=== PATIENT | female | born 1950 | race Caucasian/White ===

== ENCOUNTER 2016-12-13 22:15 | Emergency (ER) | payer MEDICARE, BC ==
[2016-12-13 22:26] VITALS: BP 158/81
[2016-12-13] MEDS ORDERED: Sodium Chloride 0.9% 10 ML Syringe FLUSH PRN (22:31)
[2016-12-13] MEDS ORDERED: Famotidine 20 MG/2 ML SDV IVPUSH ONE (22:37)
[2016-12-13] MEDS ORDERED: HYDROmorphone 0.5 MG/0.5 ML Syringe IVPUSH ONE ×2 (22:37→23:37)
[2016-12-13] MEDS ORDERED: Ondansetron 4 MG/2 ML SDV IVPUSH ONE (22:37)
[2016-12-13] MEDS ORDERED: LORazepam 2 MG/ML MDV IVPUSH ONE ×2 (22:39→23:37)
--- NOTE | 2016-12-13 22:43 | EDM.PDOC ---
ED HPI GENERAL MEDICAL PROBLEM - General Chief Complaint: Abdominal Pain Stated Complaint: abdominal pain Time Seen by Provider: 12/13/16 22:31 Source of Information: Reports: Patient, RN Notes Reviewed - History of Present Illness INITIAL COMMENTS - FREE TEXT/NARRATIVE: 66 show female comes in with severe abdominal pain, nausea, diarrhea. This all started about 5 hours ago. She had eaten lunch earlier today, felt fine at that time. Do not eat supper this evening. The pain came first followed by about 3 episodes of watery diarrhea. She's had severe generalized abdominal cramping, also having some leg and back "spasms". Her mouth feels very dry. She has no chest pain or difficulty breathing. She and her did eat pizza about 24 hours ago. No other family members are ill at this time. Abdomen Pain Score (Numeric/FACES): 8 - Related Data Allergies Allergy/AdvReac Type Severity Reaction Status Date / Time acetaminophen [From Percocet] AdvReac Hallucinati Verified 12/13/16 22:27 ons codeine AdvReac Disorientat Verified 12/13/16 22:27 ion oxycodone HCl [From Percocet] AdvReac Hallucinati Verified 12/13/16 22:27 ons wheat,eggs, dairy Allergy Related to Uncoded 12/13/16 22:27 sinuses, not GI tract. Pt. consumes these foods. Home Meds: Home Meds Atenolol 50 mg PO QPM 11/07/13 [History] Calcium Carb/Vitamin D3/Vit K1 [Viactiv Soft Chew] 1 tab PO DAILY 11/07/13 [ History] Calcium Polycarbophil [Fibercon] 625 mg PO DAILY 11/07/13 [History] Ezetimibe [Zetia] 10 mg PO DAILY 11/07/13 [History] Fluticasone Propionate [Flonase] 2 sprays NASBOTH DAILY 11/07/13 [History] Multivitamin [Daily Multiple Vitamin] 1 tab PO DAILY 11/07/13 [History] NIFEdipine [Procardia XL] 30 mg PO DAILY 11/07/13 [History] Omeprazole [priLOSEC OTC] 20 mg PO DAILY 11/07/13 [History] Oxybutynin Chloride [Ditropan Xl] 10 mg PO DAILY 11/07/13 [History] Simvastatin [Zocor] 20 mg PO BEDTIME 11/07/13 [History] busPIRone [Buspar] 10 mg PO BID 11/07/13 [History] Aspirin [Halfprin] 81 mg PO DAILY 12/08/14 [History] Benzonatate [Tessalon Perles] 200 mg PO TID PRN 12/08/14 [History] Estrogens, Conjugated [Premarin Vaginal Crm] 0.5 gm VAG ASDIRECTED 12/08/14 [ History] Iron Polysaccharide Complex [Poly-Iron] 1 tab PO DAILY 12/08/14 [History] [place]-3/DHA/Epa/Fish Oil [Fish Oil Dr 500 mg Softgel] 1,000 mg PO DAILY [History] guaiFENesin [Mucinex] 1,200 mg PO BID PRN 12/08/14 [History] Albuterol [Proventil HFA] 2 puff INH Q46H PRN 03/05/15 [History] Fluticasone/Salmeterol [Advair 100-50] 1 puff INH BID 03/05/15 [History] ALPRAZolam [Xanax] 0.25 mg PO Q8H PRN #10 tablet 03/11/15 [Rx] Levofloxacin [Levaquin] 750 mg PO Q48H #5 tab 03/11/15 [Rx] Ciprofloxacin HCl [Cipro] 500 mg PO Q12HR #6 tablet 12/14/16 [Rx] Past Medical History Cardiovascular History: Reports: Heart Murmur, High Cholesterol, Hypertension Respiratory History: Reports: Bronchitis, Recurrent, COPD Gastrointestinal History: Reports: GERD, Other (See Below) Other Gastrointestinal History: hx of c diff Genitourinary History: Reports: Renal Calculus, Urinary Incontinence, UTI, Recurrent Other OB/BYN History: tubal ligation 1986; hysterectomy 1990 Musculoskeletal History: Reports: Back Pain, Chronic Psychiatric History: Reports: Anxiety Oncologic (Cancer) History: Reports: Malignant Melanoma Dermatologic History: Reports: Melanoma Other Dermatologic History: melanoma 10 years ago. surgery to melonoma to her back; no further treatment - Infectious Disease History Infectious Disease History: Reports: C-Difficile - Past Surgical History HEENT Surgical History: Reports: Naso-Sinus Surgery, Tonsillectomy GI Surgical History: Reports: Appendectomy, Cholecystectomy, Other (See Below) Musculoskeletal Surgical History: Reports: Carpal Tunnel Social & Family History - Family History Cardiac: Reports: Heart Failure Musculoskeletal: Reports: Arthritis, Osteoarthritis Endocrine/Metabolic: Reports: Diabetes, Type I Oncologic: Reports: Cervix, Pancreatic - Tobacco Use Smoking Status *Q: Never Smoker Second Hand Smoke Exposure: No - Caffeine Use Caffeine Use: Reports: Coffee - Alcohol Use Days Per Week of Alcohol Use: 0 - Recreational Drug Use Recreational Drug Use: No - Living Situation & Occupation Living situation: Reports: , with Spouse Occupation: Employed ED ROS GENERAL - Review of Systems Review Of Systems: See Below Constitutional: Denies: Fever, Chills, Diaphoresis HEENT: Reports: Other. Denies: Throat Pain Respiratory: Denies: Shortness of Breath, Pleuritic Chest Pain (Also Strine) Cardiovascular: Denies: Chest Pain GI/Abdominal: Reports: Abdominal Pain, Diarrhea (Generalized), Nausea ( watery) . Denies: Hematochezia, Melena, Vomiting Musculoskeletal: Reports: Other (Back and leg cramps) Skin: Reports: No Symptoms Neurological: Reports: No Symptoms ED EXAM, GI/ABD - Physical Exam Exam: See Below General Appearance: Alert, Anxious, Moderate Distress Eyes: Bilateral: Normal Appearance Throat/Mouth: Other Head: No: Facial Swelling (All mucosa very dry) Neck: Supple, Full Range of Motion Respiratory/Chest: No Respiratory Distress, Lungs Clear, Normal Breath Sounds Cardiovascular: Regular Rate, Rhythm GI/Abdominal Exam: Distended (Severe tenderness entire lower abdomen), Tender Back Exam: No: CVA Tenderness (L), CVA Tenderness (R) Extremities: Normal Inspection. No: Pedal Edema, Leg Pain Neurological: Alert, Oriented, No Motor/Sensory Deficits Skin Exam: Warm, Dry, Normal Color Course - Vital Signs Last Recorded V/S: Last Vital Signs Temp 96.5 F 12/13/16 22:22 Pulse 67 12/13/16 22:22 Resp 20 12/13/16 22:22 BP 158/81 H 12/13/16 22:22 Pulse Ox 97 12/13/16 22:22 - Orders/Labs/Meds Orders: Active Orders 24 hr Category Date Time Status Peripheral IV Care [RC] . DIRECTED Care 12/13/16 22:32 Active Abdomen 2V AP Flat Upright [CR] Stat Exams 12/14/16 00:06 Taken Peripheral IV Insertion Adult [OM.PC] Stat Oth 12/13/16 22:32 Ordered Labs: Laboratory Tests 12/13/16 12/13/16 12/13/16 Range/Units 22:25 22:25 22:25 WBC 15.72 H (3.98-10.04) K/mm3 RBC 5.37 H (3.98-5.22) M/mm3 Hgb 16.6 H (11.2-15.7) gm/L Hct 47.9 H (34.1-44.9) % MCV 89.2 (79.4-94.8) fl MCH 30.9 (25.6-32.2) pg MCHC 34.7 (32.2-35.5) g/dl RDW Std Deviation 43.9 (36.4-46.3) fL Plt Count 272 (182-369) K/mm3 MPV 8.9 L (9.4-12.3) fl Neut % (Auto) 73.7 H (34.0-71.1) % Lymph % (Auto) 16.5 L (19.3-51.7) % [place] % (Auto) 8.7 (4.7-12.5) % Eos % (Auto) 0.8 (0.7-5.8) Baso % (Auto) 0.2 (0.1-1.2) % Neut # (Auto) 11.59 H (1.56-6.13) K/mm3 Lymph # (Auto) 2.59 (1.18-3.74) K/mm3 [place] # (Auto) 1.36 H (0.24-0.36) K/mm3 Eos # (Auto) 0.13 (0.04-0.36) K/mm3 Baso # (Auto) 0.03 (0.01-0.08) K/mm3 Sodium 140 (136-145) mEq/L Potassium 4.2 (3.5-5.1) mEq/L Chloride 102 (98-107) mEq/L Carbon Dioxide 21 (21-32) mEq/L Anion Gap 21.2 H (5-15) BUN 27 H (7-18) mg/dL Creatinine 1.2 H (0.55-1.02) mg/dL Est Cr Clr Drug Dosing 34.80 mL/min Estimated GFR (MDRD) 45 (>60) mL/min BUN/Creatinine Ratio 22.5 H (14-18) Glucose 131 H (80-115) mg/dL Calcium 10.4 H (8.5-10.1) mg/dL Total Bilirubin 1.0 (0.2-1.0) mg/dL AST 26 (15-37) U/L ALT 36 (14-59) U/L Alkaline Phosphatase 90 (46-116) U/L C-Reactive Protein 0.4 (<1.0) mg/dL Total Protein 8.2 (6.4-8.2) g/dl Albumin 4.5 (3.4-5.0) g/dl Globulin 3.7 gm/dL Albumin/Globulin Ratio 1.2 (1-2) Lipase 135 (73-393) U/L Urine Color (Yellow) Urine Appearance (Clear) Urine pH (5.0-8.0) Ur Specific [address] (1.005-1.030) Urine Protein (Negative) Urine Glucose (UA) (Negative) Urine Ketones (Negative) Urine Occult Blood (Negative) Urine Nitrite (Negative) Urine Bilirubin (Negative) Urine Urobilinogen (0.2-1.0) Ur Leukocyte Esterase (Negative) Urine RBC (0-5) /hpf Urine WBC (0-5) /hpf Ur Epithelial Cells (0-5) /hpf Urine Bacteria (FEW) /hpf Urine Mucus (FEW) /hpf // Range/Units 22:52 WBC (3.98-10.04) K/mm3 RBC (3.98-5.22) M/mm3 Hgb (11.2-15.7) gm/L Hct (34.1-44.9) % MCV (79.4-94.8) fl MCH (25.6-32.2) pg MCHC (32.2-35.5) g/dl RDW Std Deviation (36.4-46.3) fL Plt Count (182-369) K/mm3 MPV (9.4-12.3) fl Neut % (Auto) (34.0-71.1) % Lymph % (Auto) (19.3-51.7) % [place] % (Auto) (4.7-12.5) % Eos % (Auto) (0.7-5.8) Baso % (Auto) (0.1-1.2) % Neut # (Auto) (1.56-6.13) K/mm3 Lymph # (Auto) (1.18-3.74) K/mm3 [place] # (Auto) (0.24-0.36) K/mm3 Eos # (Auto) (0.04-0.36) K/mm3 Baso # (Auto) (0.01-0.08) K/mm3 Sodium (136-145) mEq/L Potassium (3.5-5.1) mEq/L Chloride (98-107) mEq/L Carbon Dioxide (21-32) mEq/L Anion Gap (5-15) BUN (7-18) mg/dL Creatinine (0.55-1.02) mg/dL Est Cr Clr Drug Dosing mL/min Estimated GFR (MDRD) (>60) mL/min BUN/Creatinine Ratio (14-18) Glucose (80-115) mg/dL Calcium (8.5-10.1) mg/dL Total Bilirubin (0.2-1.0) mg/dL AST (15-37) U/L ALT (14-59) U/L Alkaline Phosphatase (46-116) U/L C-Reactive Protein (<1.0) mg/dL Total Protein (6.4-8.2) g/dl Albumin (3.4-5.0) g/dl Globulin gm/dL Albumin/Globulin Ratio (1-2) Lipase (73-393) U/L Urine Color Yellow (Yellow) Urine Appearance Clear (Clear) Urine pH 6.0 (5.0-8.0) Ur Specific [address] 1.025 (1.005-1.030) Urine Protein Negative (Negative) Urine Glucose (UA) Negative (Negative) Urine Ketones Negative (Negative) Urine Occult Blood Negative (Negative) Urine Nitrite Negative (Negative) Urine Bilirubin Negative (Negative) Urine Urobilinogen 0.2 (0.2-1.0) Ur Leukocyte Esterase Negative (Negative) Urine RBC 0-5 (0-5) /hpf Urine WBC 0-5 (0-5) /hpf Ur Epithelial Cells 0-5 (0-5) /hpf Urine Bacteria Few (FEW) /hpf Urine Mucus Many H (FEW) /hpf Meds: Medications Discontinued Medications Generic Name Dose Route Start Last Admin Trade Name Freq PRN Reason Stop Dose Admin Dicyclomine HCl 10 mg 12/13/16 23:39 12/13/16 23:48 Bentyl PO 12/13/16 23:40 10 mg ONETIME ONE Administration Famotidine 20 mg 12/13/16 22:37 12/13/16 23:08 Pepcid IVPUSH 12/13/16 22:38 20 mg ONETIME ONE Administration Hydromorphone HCl 0.25 mg 12/13/16 22:37 12/13/16 23:03 Dilaudid IVPUSH 12/13/16 22:38 0.25 mg ONETIME ONE Administration Hydromorphone HCl 0.5 mg 12/13/16 23:37 12/13/16 23:43 Dilaudid IVPUSH 12/13/16 23:38 0.5 mg ONETIME ONE Administration Sodium Chloride 1,000 mls @ 999 mls/hr 12/13/16 22:45 12/13/16 23:01 Normal Saline IV 999 mls/hr ONETIME DIANE Administration Sodium Chloride 1,000 mls @ 999 mls/hr 12/14/16 02:00 12/14/16 01:54 Normal Saline IV 999 mls/hr ONETIME DIANE Administration Lorazepam 0.25 mg 12/13/16 22:39 12/13/16 23:05 Ativan IVPUSH 12/13/16 22:40 0.25 mg ONETIME ONE Administration Lorazepam 0.25 mg 12/13/16 23:37 12/13/16 23:41 Ativan IVPUSH 12/13/16 23:38 0.25 mg ONETIME ONE Administration Ondansetron HCl 4 mg 12/13/16 22:37 12/13/16 23:02 Zofran IVPUSH 12/13/16 22:38 4 mg ONETIME ONE Administration Sodium Chloride 10 ml 12/13/16 22:31 12/13/16 23:05 Saline Flush FLUSH 10 ml ASDIRECTED PRN Administration Keep Vein Open - Re-Assessments/Exams Free Text/Narrative Re-Assessment/Exam: 12/14/16 03:31 initial labs showed that she was quite dehydrated. She has history of medication sensitivity so started out with very low dose Dilaudid and Ativan 0.25 mg each 2 over a period of time. After the second dose of the Dilaudid and Ativan her discomfort, anxiety, and cramping did settle down. We did give a total of 2 L IV fluid. She is feeling much improved at time of discharge. Discharge instructions as documented. Departure - Departure Time of Disposition: 03:03 Disposition: Home, Self-Care 01 Condition: Fair Clinical Impression: Abdominal pain Qualifiers: Abdominal location: generalized Qualified Code(s): R10.84 - Generalized abdominal pain Diarrhea Qualifiers: Diarrhea type: presumed infectious Qualified Code(s): A09 - Infectious gastroenteritis and colitis, unspecified - Discharge Information Prescriptions: Ciprofloxacin HCl [Cipro] 500 mg PO Q12HR #6 tablet Instructions: Diarrhea, Adult, Abdominal Pain, Adult Referrals: Karla Rabago MD [Primary Care Provider] - Forms: ED Department Discharge Additional Instructions: Clear liquids until this afternoon or evening, then very careful bland diet as tolerated, Begin Cipro antibiotic this morning and take twice daily for 3 days, begin probiotic this morning and take that twice daily for 3-5 days and thereafter as needed, Follow up clinic if not much better within 2-3 days as expected, return to ED if symptoms worsening in any way - My Orders Last 24 Hours: My Active Orders 12/13/16 22:32 Peripheral IV Care [RC] . DIRECTED Peripheral IV Insertion Adult [OM.PC] Stat 12/14/16 00:06 Abdomen 2V AP Flat Upright [CR] Stat - Assessment/Plan Last 24 Hours: My Active Orders 12/13/16 22:32 Peripheral IV Care [RC] . DIRECTED Peripheral IV Insertion Adult [OM.PC] Stat 12/14/16 00:06 Abdomen 2V AP Flat Upright [CR] Stat
[2016-12-13] MEDS ORDERED: Sodium Chloride 0.9% 1,000 ML IV SCH (22:45)
[2016-12-13] MEDS ORDERED: Dicyclomine 10 MG Cap PO ONE (23:39)
[2016-12-14] MEDS ORDERED: Sodium Chloride 0.9% 1,000 ML IV SCH (02:00)
--- NOTE | 2016-12-14 06:42 | CR ---
Abdomen: Supine and upright views of the abdomen were obtained. Comparison: Prior abdominal x-ray of 12/08/14. Scoliosis and degenerative change are seen within the spine. Several loops of gas-filled bowel loops which are mildly prominent is seen within the midabdomen. Other bowel loops appear to contain mostly fluid. Difficult to exclude developing small bowel obstruction. No free air is seen. No abnormal calcifications or discrete soft tissue abnormality is seen. Impression: 1. Fluid-filled loops of bowel as well as several prominent air-filled loops of bowel within the midabdomen. Difficult to exclude developing small bowel obstruction. 2. Other incidental findings. Diagnostic code #3
== END 2016-12-14 03:21 | disposition home or self-care (01) ==
LOC: JD.ED 22:15
DX: A09 Infectious gastroenteritis and colitis, unspecified (principal); Z88.6 Allergy status to analgesic agent; Z88.5 Allergy status to narcotic agent; Z91.018 Allergy to other foods; Z91.012 Allergy to eggs; Z91.011 Allergy to milk products; Z79.899 Other long term (current) drug therapy; E78.00 Pure hypercholesterolemia, unspecified; I10 Essential (primary) hypertension; J44.9 Chronic obstructive pulmonary disease, unspecified; Z87.440 Personal history of urinary (tract) infections; Z79.82 Long term (current) use of aspirin
CPT/HCPCS: 36415; 74020; 80053; 81001; 83690; 85025; 86140; 96361; 96374; 96375; 96376; 99284; A9270; J1170; J2060; J2405; J7040; J7050

== ENCOUNTER 2017-06-15 07:06 | Day surgery (SDC) | payer MEDICARE, BC ==
[~2017-06-15 07:06] MED LIST: Cefuroxime 10 MG/ML SYRINGE EYELF SCH; Lidocaine 1% PF 2 ML SDV INJECT SCH; Pilocarpine 4% Ophth Soln 15 ML Bot EYELF SCH
[2017-06-15] MEDS: Polymyxin B/Trimethoprim 10 ML Bottle EYELF SCH ×3 (07:21→09:04)
[2017-06-15] MEDS: Brimonidine 0.2% Ophth Soln 5 ML Bottle EYELF SCH ×3 (07:26→09:04)
[2017-06-15] MEDS: Phenylephrine 2.5% Ophth Soln 2 ML Bot EYELF SCH ×5 (07:31→08:46)
--- NOTE | 2017-06-15 07:46 | PCM.PREANE ---
Preanesthetic Assessment - Anesthesia/Transfusion/Family Hx Anesthesia History: Prior Anesthesia Without Reaction Family History of Anesthesia Reaction: No Transfusion History: No Prior Transfusion(s) - Review of Systems General: No Symptoms Pulmonary: No Symptoms, Other (Pulmonary hypertension.) Cardiovascular: No Symptoms, Other (Right sided heart failure. Follows with cardiology (Dr. Olsen). Was told at her last apointment it was improving. Loud murmur noted. ) Gastrointestinal: No Symptoms Neurological: No Symptoms Other: Reports: None - Physical Assessment NPO Status Date: 06/14/17 NPO Status Time: 22:15 O2 Sat by Pulse Oximetry: 96 Respiratory Rate: 16 Vital Signs: Last Vital Signs Temp 36.1 C 06/15/17 07:10 Pulse 58 L 06/15/17 07:10 Resp 16 06/15/17 07:10 BP 113/67 06/15/17 07:10 Pulse Ox 96 06/15/17 07:10 Height: 1.55 m Weight: 65.771 kg ASA Class: 3 Mental Status: Alert & Oriented x3 Airway Class: Mallampati = 1 Dentition: Reports: Normal Dentition Thyro-Mental Finger Breadths: 3 Mouth Opening Finger Breadths: 3 ROM/Head Extension: Full Lungs: Clear to Auscultation, Normal Respiratory Effort Cardiovascular: Regular Rate, Regular Rhythm, Murmurs - Allergies Allergies/Adverse Reactions: Allergies Allergy/AdvReac Type Severity Reaction Status Date / Time acetaminophen [From Percocet] AdvReac Hallucinati Verified 06/14/17 14:57 ons codeine AdvReac Disorientat Verified 06/14/17 14:57 ion oxycodone HCl [From Percocet] AdvReac Hallucinati Verified 06/14/17 14:57 ons wheat,eggs, dairy Allergy Related to Uncoded 06/14/17 14:57 sinuses, not GI tract. Pt. consumes these foods. - Anesthesia Plan Beta Maria Del Rosario: Atenolol Med Last Dose Date: 06/15/17 Med Last Dose Time: 05:15 - Acknowledgements Anesthesia Type Planned: MAC Pt an Appropriate Candidate for the Planned Anesthesia: Yes Alternatives and Risks of Anesthesia Discussed w Pt/Guardian: Yes Pt/Guardian Understands and Agrees with Anesthesia Plan: Yes PreAnesthesia Questionnaire Cardiovascular History: Reports: Heart Murmur, High Cholesterol, Hypertension Respiratory History: Reports: Bronchitis, Recurrent, COPD Gastrointestinal History: Reports: GERD, Other (See Below) Other Gastrointestinal History: hx of c diff Genitourinary History: Reports: Renal Calculus, Urinary Incontinence, UTI, Recurrent Other OB/BYN History: tubal ligation 1986; hysterectomy 1990 Musculoskeletal History: Reports: Back Pain, Chronic Psychiatric History: Reports: Anxiety Oncologic (Cancer) History: Reports: Malignant Melanoma Dermatologic History: Reports: Melanoma Other Dermatologic History: melanoma 10 years ago. surgery to melonoma to her back; no further treatment - Infectious Disease History Infectious Disease History: Reports: C-Difficile - Past Surgical History HEENT Surgical History: Reports: Naso-Sinus Surgery, Tonsillectomy GI Surgical History: Reports: Appendectomy, Cholecystectomy, Other (See Below) Musculoskeletal Surgical History: Reports: Carpal Tunnel - SUBSTANCE USE Smoking Status *Q: Never Smoker Second Hand Smoke Exposure: No Days Per Week of Alcohol Use: 0 Recreational Drug Use History: No - HOME MEDS Home Medications: Home Meds Atenolol 50 mg PO QPM 11/07/13 [History] Calcium Carb/Vitamin D3/Vit K1 [Viactiv Soft Chew] 1 tab PO DAILY 11/07/13 [ History] Calcium Polycarbophil [Fibercon] 625 mg PO DAILY 11/07/13 [History] Ezetimibe [Zetia] 10 mg PO DAILY 11/07/13 [History] Fluticasone Propionate [Flonase] 2 sprays NASBOTH DAILY 11/07/13 [History] Multivitamin [Daily Multiple Vitamin] 1 tab PO DAILY 11/07/13 [History] NIFEdipine [Procardia XL] 30 mg PO DAILY 11/07/13 [History] Omeprazole [priLOSEC OTC] 20 mg PO DAILY 11/07/13 [History] Oxybutynin Chloride [Ditropan Xl] 10 mg PO DAILY 11/07/13 [History] Simvastatin [Zocor] 20 mg PO BEDTIME 11/07/13 [History] busPIRone [Buspar] 10 mg PO BID 11/07/13 [History] Aspirin [Halfprin] 81 mg PO DAILY 12/08/14 [History] Estrogens, Conjugated [Premarin Vaginal Crm] 0.5 gm VAG ASDIRECTED 12/08/14 [ History] [place]-3/DHA/Epa/Fish Oil [Fish Oil Dr 500 mg Softgel] 1,000 mg PO DAILY [History] guaiFENesin [Mucinex] 1,200 mg PO BID PRN 12/08/14 [History] Albuterol [Proventil HFA] 2 puff INH Q46H PRN 03/05/15 [History] ALPRAZolam [Xanax] 0.25 mg PO Q8H PRN #10 tablet 03/11/15 [Rx] Acetaminophen [Tylenol] 650 mg PO Q6H PRN 06/14/17 [History] Atenolol 25 mg PO QPM 06/14/17 [History] Vit A/Vit C/Vit E/Zinc/Copper [Preservision] 1 tab PO DAILY 06/14/17 [History] - CURRENT (IN HOUSE) MEDS Current Meds: Current Medications Brimonidine Tartrate (Alphagan 0.2% Ophth Soln) 0 ml EYELF ASDIRECTED DIANE Stop: 06/15/17 18:00 Last Admin: 06/15/17 07:26 Dose: 1 drop Cefuroxime Sodium (Zinacef) 0 mg EYELF ASDIRECTED DIANE Stop: 06/15/17 18:00 Lidocaine HCl (Xylocaine-Mpf 1%) 10 ml INJECT ASDIRECTED DIANE Stop: 06/15/17 18:00 Phenylephrine HCl (Chris-Synephrine 2.5% Ophth Soln) 0 ml EYELF ASDIRECTED DIANE Stop: 06/15/17 18:00 Last Admin: 06/15/17 07:31 Dose: 1 drop Pilocarpine HCl (Pilocar 4% Ophth Soln) 0 ml EYELF ASDIRECTED DIANE Stop: 06/15/17 18:00 Polymyxin/Trimethoprim Sulfate (Polytrim Ophth Soln) 0 ml EYELF ASDIRECTED DIANE Stop: 06/15/17 18:00 Last Admin: 06/15/17 07:21 Dose: 1 drop Tetracaine HCl (Tetracaine 0.5% Steri-Unit [place]) 0 ml EYELF ASDIRECTED DIANE Stop: 06/15/17 18:00 Tropicamide (Mydriacyl 1% Ophth Soln) 0 ml EYELF ASDIRECTED DIANE Stop: 06/15/17 18:00 Last Admin: 06/15/17 07:36 Dose: 1 drop
[2017-06-15] MEDS: Tetracaine HCl/PF 0.5% 4 ML Bottle EYELF SCH ×2 (08:31→08:53)
--- NOTE | 2017-06-15 09:07 | PCM48HPAN ---
Post Anesthesia Note - EVALUATION WITHIN 48HRS OF ANESTHETIC Vital Signs in Normal Range: Yes Patient Participated in Evaluation: Yes Respiratory Function Stable: Yes Airway Patent: Yes Cardiovascular Function Stable: Yes Hydration Status Stable: Yes Pain Control Satisfactory: Yes Nausea and Vomiting Control Satisfactory: Yes Mental Status Recovered: Yes Pulse Rate: 63 SaO2: 95 Resp Rate: 16 Blood Pressure: 116/66
[2017-06-15 09:17] VITALS: BP 116/70
== END 2017-06-15 09:15 | disposition home or self-care (01) ==
LOC: JD.SDS 07:06
PROVIDERS: ATTEND Ophthalmology
DX: H25.813 Combined forms of age-related cataract, bilateral (principal); H35.3131 Nonexudative age-related macular degeneration, bilateral, early dry stage; H40.003 Preglaucoma, unspecified, bilateral; H16.223 Keratoconjunctivitis sicca, not specified as Sjogren's, bilateral; H16.103 Unspecified superficial keratitis, bilateral; H02.834 Dermatochalasis of left upper eyelid; H02.831 Dermatochalasis of right upper eyelid; M19.90 Unspecified osteoarthritis, unspecified site; E78.00 Pure hypercholesterolemia, unspecified; I10 Essential (primary) hypertension; J44.9 Chronic obstructive pulmonary disease, unspecified; K21.9 Gastro-esophageal reflux disease without esophagitis; F41.9 Anxiety disorder, unspecified; Z87.442 Personal history of urinary calculi; Z85.828 Personal history of other malignant neoplasm of skin; Z90.89 Acquired absence of other organs; Z90.49 Acquired absence of other specified parts of digestive tract; Z90.710 Acquired absence of both cervix and uterus; Z79.899 Other long term (current) drug therapy; Z79.82 Long term (current) use of aspirin; Z79.51 Long term (current) use of inhaled steroids; Z88.5 Allergy status to narcotic agent; Z91.018 Allergy to other foods; Z91.012 Allergy to eggs; Z91.011 Allergy to milk products
CPT/HCPCS: 66984; C1780; J0697; A9270-GY; J2001

== ENCOUNTER 2018-12-18 20:56 | Observation (INO) | payer MEDICARE, BC ==
[2018-12-18] MEDS ORDERED: HYDROmorphone 1 MG/ML Syringe IVPUSH STA (21:50)
[2018-12-18] MEDS ORDERED: Ondansetron 4 MG/2 ML SDV IVPUSH ONE (21:50)
--- NOTE | 2018-12-18 21:55 | EDM.PDOC ---
ED HPI GENERAL MEDICAL PROBLEM - General Chief Complaint: Abdominal Pain Stated Complaint: VOMITING ABDOMINAL PAIN Time Seen by Provider: 12/18/18 21:27 Source of Information: Reports: Patient, Family () History Limitations: Reports: No Limitations - History of Present Illness INITIAL COMMENTS - FREE TEXT/NARRATIVE: Mrs. Blount is a very pleasant 68-year-old woman with past medical history significant for stress incontinence and relatively frequent urinary tract infections, who states that she developed a subjective fever, insofar as she felt hot and her hands felt puffy, this morning. Around noon, she developed left lower quadrant abdominal pain. The pain is crampy and sharp in character. It is constant, although she feels better if she is supine. She has not identified any other modifiers. She developed nausea and emesis around 19:15 this evening, but no recent constipation, diarrhea, or urinary symptoms. No recent bloody bowel movements. She states that she has chronic back pain due to scoliosis, but denies any new back or flank pain. She also states that she developed the sensation of constriction around her lower ribs around 20:00 tonight. She states that she feels dehydrated. She reports similar symptoms about 6 times in the past, most recently in about 2017, that she believes were due to either a UTI or pyelonephritis. For clarification, the patient has a history of a large stone IN a kidney, but no history of ureterolithiasis. The patient's last solid food was around 14:00 this afternoon. The patient's PCP is Dr. Karla Rabago. Her Neurosurgeon is Dr. Ross Hardy. Her Identity Management Consultant is Dr. Fadi Diaz. Abdomen Pain Score (Numeric/FACES): 7 - Related Data Allergies Allergy/AdvReac Type Severity Reaction Status Date / Time acetaminophen [From Percocet] AdvReac Hallucinati Verified 12/18/18 21:17 ons codeine AdvReac Disorientat Verified 12/18/18 21:17 ion oxycodone HCl [From Percocet] AdvReac Hallucinati Verified 12/18/18 21:17 ons wheat,eggs, dairy Allergy Related to Uncoded 12/18/18 21:17 sinuses, not GI tract. Pt. consumes these foods. Home Meds: Home Meds Atenolol 50 mg PO QAM 11/07/13 [History] Calcium Carb/Vitamin D3/Vit K1 [Viactiv Soft Chew] 1 tab PO DAILY 11/07/13 [ History] Calcium Polycarbophil [Fibercon] 625 mg PO DAILY 11/07/13 [History] Ezetimibe [Zetia] 10 mg PO DAILY 11/07/13 [History] Fluticasone Propionate [Flonase] 2 sprays NASBOTH DAILY 11/07/13 [History] Multivitamin [Daily Multiple Vitamin] 1 tab PO DAILY 11/07/13 [History] NIFEdipine [Procardia XL] 30 mg PO DAILY 11/07/13 [History] Omeprazole [priLOSEC OTC] 20 mg PO DAILY 11/07/13 [History] Oxybutynin Chloride [Ditropan Xl] 10 mg PO DAILY 11/07/13 [History] Simvastatin [Zocor] 20 mg PO BEDTIME 11/07/13 [History] busPIRone [Buspar] 10 mg PO BID 11/07/13 [History] Aspirin [Halfprin] 81 mg PO DAILY 12/08/14 [History] Estrogens, Conjugated [Premarin Vaginal Crm] 0.5 gm VAG ASDIRECTED 12/08/14 [ History] [place]-3/DHA/Epa/Fish Oil [Fish Oil Dr 500 mg Softgel] 1,000 mg PO DAILY [History] ALPRAZolam [Xanax] 0.25 mg PO Q8H PRN #10 tablet 03/11/15 [Rx] Acetaminophen [Tylenol] 1,000 mg PO Q4H PRN 06/14/17 [History] Atenolol 25 mg PO QPM 06/14/17 [History] Vit A/Vit C/Vit E/Zinc/Copper [Preservision] 1 tab PO DAILY 06/14/17 [History] Past Medical History Cardiovascular History: Reports: High Cholesterol, Hypertension, Other (See Below) (Cardiomegaly without CHF) Gastrointestinal History: Reports: Gastritis, GERD Genitourinary History: Reports: Urinary Incontinence (stress incontinence) Musculoskeletal History: Reports: Back Pain, Chronic (scoliosis) Psychiatric History: Reports: Anxiety Oncologic (Cancer) History: Reports: Malignant Melanoma (left shoulder, dx'd 2005, s/p excision) - Infectious Disease History Infectious Disease History: Reports: C-Difficile - Past Surgical History HEENT Surgical History: Reports: Adenoidectomy, Cataract Surgery (left), Naso- Sinus Surgery (x 3, incl deviated septum and turbinate reduction), Tonsillectomy GI Surgical History: Reports: Appendectomy, Cholecystectomy (1981), Colonoscopy (x 3 or 4), EGD (x 4 or 5) Female Surgical History: Reports: Hysterectomy (partial), Lithotripsy/ESWL ( of stone in kidney - unsuccessful), Tubal Ligation Neurological Surgical History: Reports: Lumbar Spine (L2,3,4 laminectomy) Musculoskeletal Surgical History: Reports: Carpal Tunnel (bilateral) Oncologic Surgical History: Reports: Other (See Below) (Excision of malignant melanoma lesion off left shoulder) Social & Family History - Family History Cardiac: Reports: Heart Failure Musculoskeletal: Reports: Arthritis, Osteoarthritis Endocrine/Metabolic: Reports: Diabetes, Type I Oncologic: Reports: Cervix, Pancreatic - Tobacco Use Smoking Status *Q: Never Smoker - Caffeine Use Caffeine Use: Reports: Coffee - Alcohol Use Alcohol Use History: Yes Alcohol Use Frequency: Rarely - Recreational Drug Use Recreational Drug Use: No - Living Situation & Occupation Living situation: Reports: , with Spouse Occupation: Retired ED ROS GENERAL - Review of Systems Review Of Systems: ROS reveals no pertinent complaints other than HPI. ED EXAM, GI/ABD - Physical Exam Exam: See Below Exam Limited By: No Limitations General Appearance: Alert, WD/WN, No Apparent Distress Eyes: Bilateral: Normal Appearance, EOMI Ears: Normal External Exam, Hearing Grossly Normal Nose: Normal Inspection Throat/Mouth: Normal Inspection, Normal Lips, Normal Voice, No Airway Compromise Head: Atraumatic, Normocephalic Neck: Normal Inspection, Full Range of Motion Respiratory/Chest: No Respiratory Distress, Lungs Clear, Normal Breath Sounds, No Accessory Muscle Use Cardiovascular: Normal Peripheral Pulses, Regular Rate, Rhythm, No Edema, No Gallop, No JVD, No Murmur, No Rub GI/Abdominal Exam: Soft, No Organomegaly, No Distention, No Abnormal Bruit, No Mass, Tender (Exquisite to the left lower quadrant, including involuntary guarding. Less tender along the left side of the abdomen, and mild tenderness to the epigastrium. Essentially nontender elsewhere.), Abnormal Bowel Sounds ( diminished) (Female) Exam: Deferred Rectal (Female) Exam: Deferred Back Exam: Normal Inspection, Full Range of Motion. No: CVA Tenderness (L), CVA Tenderness (R) Extremities: Normal Inspection, Normal Range of Motion, No Pedal Edema, Normal Capillary Refill Neurological: Alert, Oriented, Normal Cognition, No Motor/Sensory Deficits Psychiatric: Normal Affect Skin Exam: Warm, Dry, Intact, Normal Color, No Rash Course - Vital Signs Last Recorded V/S: Last Vital Signs Temp 36.3 C 12/18/18 21:14 Pulse 66 12/18/18 21:14 Resp 20 12/18/18 21:14 BP 151/85 H 12/18/18 21:14 Pulse Ox 95 12/18/18 21:14 - Orders/Labs/Meds Orders: Active Orders 24 hr Category Date Time Status Admission Status [Patient Status] [ADT] Routine ADT 12/19/18 00:14 Active Insert Urinary Catheter [OM.PC] Q24H Care 12/18/18 23:00 Ordered Urinary Catheter Assessment [RC] ASDIRECTED Care 12/18/18 22:49 Active Abdomen Pelvis w Cont [CT] Stat Exams 12/18/18 21:50 Taken Sodium Chloride 0.9% [Normal Saline] 1,000 ml Med 12/18/18 22:00 Active IV ASDIRECTED Medication Orders Sodium Chloride (Normal Saline) 1,000 mls @ 150 mls/hr IV ASDIRECTED DIANE Last Admin: 12/18/18 22:20 Dose: 150 mls/hr Labs: Laboratory Tests 12/18/18 12/18/18 12/18/18 Range/Units 22:25 22:25 22:49 WBC 13.22 H (3.98-10.04) K/mm3 RBC 4.88 (3.98-5.22) M/mm3 Hgb 13.7 D (11.2-15.7) gm/dl Hct 42.1 (34.1-44.9) % MCV 86.3 (79.4-94.8) fl MCH 28.1 (25.6-32.2) pg MCHC 32.5 (32.2-35.5) g/dl RDW Std Deviation 43.0 (36.4-46.3) fL Plt Count 266 (182-369) K/mm3 MPV 9.0 L (9.4-12.3) fl Neutrophils % (Manual) 89 H (40-60) % Band Neutrophils % 0 (0-10) % Lymphocytes % (Manual) 7 L (20-40) % Atypical Lymphs % 0 % Monocytes % (Manual) 2 (2-10) % Eosinophils % (Manual) 2 (0.7-5.8) % Basophils % (Manual) 0 L (0.1-1.2) Platelet Estimate Adequate Plt Morphology Comment Normal RBC Morph Comment Normal Sodium 139 (136-145) mEq/L Potassium 4.3 (3.5-5.1) mEq/L Chloride 104 (98-107) mEq/L Carbon Dioxide 25 (21-32) mEq/L Anion Gap 14.3 (5-15) BUN 25 H (7-18) mg/dL Creatinine 0.9 (0.55-1.02) mg/dL Est Cr Clr Drug Dosing 47.32 mL/min Estimated GFR (MDRD) > 60 (>60) mL/min BUN/Creatinine Ratio 27.8 H (14-18) Glucose 126 H (80-115) mg/dL Calcium 10.2 H (8.5-10.1) mg/dL Total Bilirubin 0.5 (0.2-1.0) mg/dL AST 27 (15-37) U/L ALT 33 (14-59) U/L Alkaline Phosphatase 99 (46-116) U/L Total Protein 8.0 (6.4-8.2) g/dl Albumin 4.2 (3.4-5.0) g/dl Globulin 3.8 gm/dL Albumin/Globulin Ratio 1.1 (1-2) Lipase 124 (73-393) U/L Urine Color Yellow (Yellow) Urine Appearance Clear (Clear) Urine pH 6.0 (5.0-8.0) Ur Specific Raymond 1.020 (1.005-1.030) Urine Protein Negative (Negative) Urine Glucose (UA) Negative (Negative) Urine Ketones Negative (Negative) Urine Occult Blood Negative (Negative) Urine Nitrite Negative (Negative) Urine Bilirubin Negative (Negative) Urine Urobilinogen 0.2 (0.2-1.0) Ur Leukocyte Esterase Negative (Negative) Urine RBC Not seen (0-5) /hpf Urine WBC Not seen (0-5) /hpf Ur Epithelial Cells 0-5 (0-5) /hpf Urine Bacteria Rare (FEW) /hpf Urine Mucus Not seen (FEW) /hpf Meds: Medications Generic Name Dose Route Start Last Admin Trade Name Daniel PRN Reason Stop Dose Admin Sodium Chloride 1,000 mls @ 150 mls/hr 12/18/18 22:00 12/18/18 22:20 Normal Saline IV 150 mls/hr ASDIRECTED DIANE Administration Discontinued Medications Generic Name Dose Route Start Last Admin Trade Name Daniel PRN Reason Stop Dose Admin Hydromorphone HCl 0.5 mg 12/18/18 21:50 12/18/18 22:23 Dilaudid IVPUSH 12/18/18 21:51 0.5 mg ONETIME STA Administration Ondansetron HCl 4 mg 12/18/18 21:50 12/18/18 22:23 Zofran IVPUSH 12/18/18 21:51 4 mg ONETIME ONE Administration - Re-Assessments/Exams Free Text/Narrative Re-Assessment/Exam: 12/18/18 21:52 The patient's history and physical examination are strongly suggestive of acute diverticulitis, or, less likely, colitis. This could be an unusual presentation of a UTI, as the patient suspects, or a particularly unusual presentation of a left ureterolith. I have ordered blood work, a urinalysis by quick catheter, and a CT scan of the abdomen and pelvis with oral and IV contrast. In the meantime, the patient will receive IV Dilaudid, IV Zofran, and IV fluid. 12/18/18 23:30 The patient's CBC is remarkable for a WBC count elevated at 13.22, but with 0% bandemia and 89% neutrophilia. The remainder of her CBC is unremarkable. Her CMP is remarkable for a BUN elevated at 25, but with a normal creatinine of 0.9. Her blood glucose is mildly elevated at 126. Her calcium is slightly elevated at 10.2. The remainder of her CMP is unremarkable. Her lipase level is within normal limits at 124. Her urinalysis is unremarkable. Results of the CT of the abdomen and pelvis are still pending. 12/18/18 23:49 CT of the abdomen and pelvis with oral and IV contrast is read by [facility] as: 1. No acute findings to explain reported symptoms. 2. Nonacute findings as outlined above. The body of the report reads "Gastric distention and dilated small bowel loop in the pelvis without upper transition point to suggest obstruction. Bowel proximal and distal to this is opacified. Sigmoid diverticula without evidence for diverticulitis. The ascending and transverse colon are mildly distended with fluid and fecal material. The descending colon and sigmoid colon are collapsed. No mass lesion is seen of the transition point." 12/19/18 00:06 Test results discussed with the patient. Her has gone home. As above, the patient's workup tonight is unremarkable, and does not explain the cause of her symptoms. The patient then mentioned that about a week ago she started taking high-dose fish oil, as recommended by a relative who is into holistic medicine, as a possible treatment for arthritis. I cannot say with certainty, but I suppose it is possible that the patient's gastrointestinal issues may be related to the fish oil. For tonight's purposes, the patient has agreed to be placed into observation, where she can continue to receive IV fluid, pain medicine as needed, and antinausea medicine as needed. The patient can then be evaluated by the surgeon in the morning. I will write bridge orders. Departure - Departure Time of Disposition: 00:09 Disposition: Refer to Observation Condition: Good Clinical Impression: Left lower quadrant abdominal pain of unknown etiology, Nausea & vomiting - Discharge Information *PRESCRIPTION DRUG MONITORING PROGRAM REVIEWED*: Not Applicable *COPY OF PRESCRIPTION DRUG MONITORING REPORT IN PATIENT DINO: Not Applicable - My Orders Last 24 Hours: My Active Orders 12/18/18 21:50 Abdomen Pelvis w Cont [CT] Stat 12/18/18 22:00 Sodium Chloride 0.9% [Normal Saline] 1,000 ml IV ASDIRECTED 12/18/18 22:49 Urinary Catheter Assessment [RC] ASDIRECTED 12/18/18 23:00 Insert Urinary Catheter [OM.PC] Q24H 12/19/18 00:14 Admission Status [Patient Status] [ADT] Routine - Assessment/Plan Last 24 Hours: My Active Orders 12/18/18 21:50 Abdomen Pelvis w Cont [CT] Stat 12/18/18 22:00 Sodium Chloride 0.9% [Normal Saline] 1,000 ml IV ASDIRECTED 12/18/18 22:49 Urinary Catheter Assessment [RC] ASDIRECTED 12/18/18 23:00 Insert Urinary Catheter [OM.PC] Q24H 12/19/18 00:14 Admission Status [Patient Status] [ADT] Routine
[2018-12-18] MEDS ORDERED: Sodium Chloride 0.9% 1,000 ML IV SCH (22:00)
[2018-12-19] MEDS ORDERED: Ondansetron 4 MG/2 ML SDV IVPUSH PRN (01:06)
[2018-12-19] MEDS: HYDROmorphone 0.5 MG/0.5 ML Syringe IVPUSH PRN ×2 (02:10→09:13)
--- NOTE | 2018-12-19 07:43 | CT ---
CT abdomen and pelvis Technique: Multiple axial sections were obtained from above the dome of the diaphragm inferiorly through the pubic symphysis. Intravenous and oral contrast was utilized. Delayed images were also obtained through the bladder. Comparison: Prior abdominal and pelvic CT study of 03/05/14. Findings: Visualized lung bases show nothing acute. Several small low density lesions are identified within the left lobe of the liver. These are too small to characterize by Hounsfield unit measurements but appeared to be stable from previous exam and therefore represent small cysts. No additional abnormality is seen within the liver. Spleen is normal in size. Adrenal glands show no nodule. Kidneys show symmetric contrast enhancement without hydronephrosis or mass. Small nonobstructing calculi are seen within both kidneys. Largest calculus measures 4 mm. Gastroesophageal reflux of contrast is noted. Pancreas is within normal limits. Aorta shows no aneurysm. No retroperitoneal adenopathy or mesenteric abnormalities are seen. No pelvic mass or adenopathy is noted. Fluid and stool is noted within the right colon and transverse colon. More distal colon is collapsed. Delayed images show contrast within the distal ureters and within the bladder. No inflammatory change or free fluid is identified. Appendix is not visualized. Bladder shows evidence of prolapse. Bone window settings were reviewed which show diffuse disc space narrowing and scoliosis within the spine. Impression: 1. Increased stool and fluid within the right and transverse colon. 2. Bladder prolapse. 3. Other findings which are believed to be incidental. Nothing acute is appreciated. Diagnostic code #2 I agree with preliminary report from [facility], finalized on 12/19/18, 12:41 AM Central Time
--- NOTE | 2018-12-19 07:50 | PCM.HP.2 ---
H&P History of Present Illness - General Date of Service: 12/19/18 Admit Problem/Dx: Admission Diagnosis/Problem Admission Diagnosis/Problem Abdominal pain - History of Present Illness Initial Comments - Free Text/Narative: This is a 68 year old female who came to the ED complaining of worsening abdominal pain for 1 day. As per patient she started feeling feverish around 8AM, this was associated with pain in her left lower quadrant, described as a dull ache, graded 3-4/10, non-radiating, with mild improvement after burping or having a BM. Pain associated with chills, body aches, malaise and decreased appetite. She denies any diarrhea, constipation, fatigue, weakness, bloating, changes in urine , frequency, urgency, suprapubic pain or pressure. Later on in the day she developed nausea with intractable vomiting for 1 hours for which she consulted the ED for further evaluation. Abdomen Pain Score (Numeric/FACES): 4 - Related Data Allergies/Adverse Reactions: Allergies Allergy/AdvReac Type Severity Reaction Status Date / Time acetaminophen [From Percocet] AdvReac Hallucinati Verified 12/18/18 21:17 ons codeine AdvReac Disorientat Verified 12/18/18 21:17 ion oxycodone HCl [From Percocet] AdvReac Hallucinati Verified 12/18/18 21:17 ons wheat,eggs, dairy AdvReac Related to Uncoded 12/19/18 01:30 sinuses, not GI tract. Pt. consumes these foods. Home Medications: Home Meds Atenolol 50 mg PO QAM 11/07/13 [History] Calcium Carb/Vitamin D3/Vit K1 [Viactiv Soft Chew] 1 tab PO BEDTIME 11/07/13 [ History] Calcium Polycarbophil [Fibercon] 1,250 mg PO DAILY 11/07/13 [History] Ezetimibe [Zetia] 10 mg PO BEDTIME 11/07/13 [History] Fluticasone Propionate [Flonase] 2 sprays NASBOTH DAILY 11/07/13 [History] Multivitamin [Daily Multiple Vitamin] 1 tab PO DAILY 11/07/13 [History] NIFEdipine [Procardia XL] 30 mg PO BEDTIME 11/07/13 [History] Omeprazole [priLOSEC OTC] 20 mg PO DAILY 11/07/13 [History] Oxybutynin Chloride [Ditropan Xl] 10 mg PO DAILY 11/07/13 [History] Simvastatin [Zocor] 20 mg PO BEDTIME 11/07/13 [History] busPIRone [Buspar] 10 mg PO BID 11/07/13 [History] Aspirin [Halfprin] 81 mg PO DAILY 12/08/14 [History] Estrogens, Conjugated [Premarin Vaginal Crm] 0.5 gm VAG ASDIRECTED 12/08/14 [ History] [place]-3/DHA/Epa/Fish Oil [Fish Oil Dr 500 mg Softgel] 4,000 mg PO DAILY [History] Acetaminophen [Tylenol] 1,000 mg PO Q4H PRN 06/14/17 [History] Atenolol 25 mg PO QPM 06/14/17 [History] Vit A/Vit C/Vit E/Zinc/Copper [Preservision] 1 tab PO BID 06/14/17 [History] Past Medical History Cardiovascular History: Reports: Heart Murmur, High Cholesterol, Hypertension, Pulmonary Hypertension, Other (See Below) Other Cardiovascular History: enlarged heart (may be related to sleep apnea) Respiratory History: Reports: Bronchitis, Recurrent, Sleep Apnea Other Respiratory History: Uses CPAP Gastrointestinal History: Reports: Gastritis, GERD Other Gastrointestinal History: Hx of cdiff. Genitourinary History: Reports: Renal Calculus, Other (See Below) Other Genitourinary History: urgency Other OB/BYN History: tubal ligation 1986; hysterectomy 1990 Musculoskeletal History: Reports: Back Pain, Chronic Psychiatric History: Reports: Anxiety Oncologic (Cancer) History: Reports: Malignant Melanoma Dermatologic History: Reports: Melanoma Other Dermatologic History: melanoma 10 years ago. surgery to melonoma to her back/shoulder; no further treatment - Infectious Disease History Infectious Disease History: Reports: C-Difficile - Past Surgical History HEENT Surgical History: Reports: Adenoidectomy, Cataract Surgery, Naso-Sinus Surgery, Tonsillectomy Other HEENT Surgeries/Procedures: Sinus surgery x3 GI Surgical History: Reports: Appendectomy, Cholecystectomy, Colonoscopy, EGD Female Surgical History: Reports: Hysterectomy, Lithotripsy/ESWL, Tubal Ligation Neurological Surgical History: Reports: Lumbar Spine Musculoskeletal Surgical History: Reports: Carpal Tunnel, Other (See Below) Other Musculoskeletal Surgeries/Procedures:: back surgery x 1 Oncologic Surgical History: Reports: Other (See Below) Other Oncologic Surgeries/Procedures: removed melanoma Social & Family History - Family History Cardiac: Reports: Heart Failure Musculoskeletal: Reports: Arthritis, Osteoarthritis Endocrine/Metabolic: Reports: Diabetes, Type I Oncologic: Reports: Cervix, Pancreatic - Tobacco Use Smoking Status *Q: Never Smoker Second Hand Smoke Exposure: Yes - Caffeine Use Caffeine Use: Reports: Soda Other Caffeine Use: diet coke - Recreational Drug Use Recreational Drug Use: No - Living Situation & Occupation Living situation: Reports: , with Spouse Occupation: Retired H&P Review of Systems - Review of Systems: Review Of Systems: See Below General: Reports: Fever, Chills, Malaise, Decreased Appetite. Denies: Weakness , Fatigue, Night Sweats, Diaphoresis HEENT: Denies: Dysphasia, Eye Pain, Headaches, Hearing Changes, Rhinitis, Post Nasal Drip, Sinus Congestion, Sore Throat, Vertigo, Visual Changes Pulmonary: Denies: Shortness of Breath, Wheezing, Cough, Sputum, Hemoptysis Cardiovascular: Denies: Chest Pain, Palpitations, Dyspnea on Exertion, Orthopnea , PND, Edema, Lightheadedness, Syncope, Claudication Gastrointestinal: Reports: Abdominal Pain, Anorexia, Decreased Appetite, Nausea , Vomiting. Denies: Black Stool, Bloody Stool, Constipation, Diarrhea, Difficulty Swallowing, Distension, Flatus, Hematemesis, Hematochezia, Melena, Mucous in Stool, Stool Incontinence Genitourinary: Reports: Retention. Denies: Dysuria, Frequency, Burning, Pain, Urgency, Incontinence, Hematuria Musculoskeletal: Denies: Neck Pain, Shoulder Pain, Arm Pain, Back Pain, Hand Pain, Leg Pain, Foot Pain, Joint Pain, Joint Swelling, Muscle Pain, Muscle Stiffness Skin: Denies: Cyanosis, Jaundice, Pallor, Diaphoresis, Bruising Neurological: Denies: Confusion, Dizziness, Headache, Numbness, Paresthesia, Seizure, Syncope Exam - Vital Signs Vital Signs: Last Vital Signs Temp 36.7 C 12/19/18 01:16 Pulse 73 12/19/18 01:16 Resp 12 12/19/18 01:16 BP 117/85 12/19/18 01:16 Pulse Ox 100 12/19/18 05:46 Weight: 69.445 kg - Patient Data Lab Results Last 24 hrs: Laboratory Results - last 24 hr 12/18/18 12/18/18 12/18/18 Range/Units 22:25 22:25 22:49 WBC 13.22 H (3.98-10.04) K/mm3 RBC 4.88 (3.98-5.22) M/mm3 Hgb 13.7 D (11.2-15.7) gm/dl Hct 42.1 (34.1-44.9) % MCV 86.3 (79.4-94.8) fl MCH 28.1 (25.6-32.2) pg MCHC 32.5 (32.2-35.5) g/dl RDW Std Deviation 43.0 (36.4-46.3) fL Plt Count 266 (182-369) K/mm3 MPV 9.0 L (9.4-12.3) fl Neutrophils % (Manual) 89 H (40-60) % Band Neutrophils % 0 (0-10) % Lymphocytes % (Manual) 7 L (20-40) % Atypical Lymphs % 0 % Monocytes % (Manual) 2 (2-10) % Eosinophils % (Manual) 2 (0.7-5.8) % Basophils % (Manual) 0 L (0.1-1.2) Platelet Estimate Adequate Plt Morphology Comment Normal RBC Morph Comment Normal Sodium 139 (136-145) mEq/L Potassium 4.3 (3.5-5.1) mEq/L Chloride 104 (98-107) mEq/L Carbon Dioxide 25 (21-32) mEq/L Anion Gap 14.3 (5-15) BUN 25 H (7-18) mg/dL Creatinine 0.9 (0.55-1.02) mg/dL Est Cr Clr Drug Dosing 47.32 mL/min Estimated GFR (MDRD) > 60 (>60) mL/min BUN/Creatinine Ratio 27.8 H (14-18) Glucose 126 H (80-115) mg/dL Calcium 10.2 H (8.5-10.1) mg/dL Total Bilirubin 0.5 (0.2-1.0) mg/dL AST 27 (15-37) U/L ALT 33 (14-59) U/L Alkaline Phosphatase 99 (46-116) U/L Total Protein 8.0 (6.4-8.2) g/dl Albumin 4.2 (3.4-5.0) g/dl Globulin 3.8 gm/dL Albumin/Globulin Ratio 1.1 (1-2) Lipase 124 (73-393) U/L Urine Color Yellow (Yellow) Urine Appearance Clear (Clear) Urine pH 6.0 (5.0-8.0) Ur Specific [place] 1.020 (1.005-1.030) Urine Protein Negative (Negative) Urine Glucose (UA) Negative (Negative) Urine Ketones Negative (Negative) Urine Occult Blood Negative (Negative) Urine Nitrite Negative (Negative) Urine Bilirubin Negative (Negative) Urine Urobilinogen 0.2 (0.2-1.0) Ur Leukocyte Esterase Negative (Negative) Urine RBC Not seen (0-5) /hpf Urine WBC Not seen (0-5) /hpf Ur Epithelial Cells 0-5 (0-5) /hpf Urine Bacteria Rare (FEW) /hpf Urine Mucus Not seen (FEW) /hpf Result Diagrams: 12/18/18 22:25 12/18/18 22:25 Orders Last 24hrs: Active Orders 24 hr Category Date Time Status Admission Status [Patient Status] [ADT] Routine ADT 12/19/18 00:14 Active Insert Urinary Catheter [OM.PC] Q24H Care 12/18/18 23:00 Ordered Notify Provider Consults [RC] ASDIRECTED Care 12/19/18 01:15 Active Oxygen Therapy [RC] ASDIRECTED Care 12/19/18 03:02 Active Up ad Kimberley [RC] ASDIRECTED Care 12/19/18 01:03 Active Consult to Physician [CONS] Routine Cons 12/19/18 01:13 Active Full Liquid Diet [DIET] Diet 12/19/18 Breakfast Active HYDROmorphone [Dilaudid] Med 12/19/18 01:05 Active 0.5 mg IVPUSH Q2H PRN Ondansetron [Zofran] Med 12/19/18 01:06 Active 4 mg IVPUSH Q6H PRN Sodium Chloride 0.9% [Normal Saline] 1,000 ml Med 12/19/18 01:15 Active IV ASDIRECTED Code Status [Resuscitation Status] Routine Resus Stat 12/19/18 01:02 Ordered Medication Orders Hydromorphone HCl (Dilaudid) 0.5 mg IVPUSH Q2H PRN PRN Reason: Pain Last Admin: 12/19/18 02:10 Dose: 0.5 mg Sodium Chloride (Normal Saline) 1,000 mls @ 100 mls/hr IV ASDIRECTED DIANE Ondansetron HCl (Zofran) 4 mg IVPUSH Q6H PRN PRN Reason: Nausea/Vomiting
--- NOTE | 2018-12-19 09:00 | PCM.CONS ---
H&P History of Present Illness - General Date of Service: 12/19/18 Admit Problem/Dx: Admission Diagnosis/Problem Admission Diagnosis/Problem Abdominal pain Source of Information: Patient History Limitations: Reports: No Limitations - History of Present Illness Initial Comments - Free Text/Narative: Mrs. Blount is a 68 yo woman who presented yesterday with abdominal pain. The pain began suddenly without clear inciting event. The pain is in the left lower quadrant, described as dull and achy with occasional sharp exacerbations. She has had pain like this in the past but less severe, she thinks she has a bout about once a month on average. She reports subjective fever as well. She feels the pain may be somewhat relieved with passage of flatus/stool. She reports nausea/vomiting sometimes associated with the pain. The pain usually resolves on its own within two to three days. She reports no history of inflammatory bowel disease or autoimmune disease. She had C diff colitis a few years ago requiring hospitalization, this was attributed to her chronic use of antibiotics for frequent urinary tract infections. She denies any change in bowel habits or blood per rectum associated with her pain. Her last colonoscopy was about 5 years ago, significant only for polyps. Onset of Symptoms: Reports: Sudden Symptom Onset Date: 12/18/18 Duration of Symptoms: Reports: Day(s): Location: Reports: Abdomen Quality: Reports: Ache Severity: Moderate Improves with: Reports: None Associated Symptoms: Reports: Nausea/Vomiting Abdomen Pain Score (Numeric/FACES): 4 - Related Data Allergies/Adverse Reactions: Allergies Allergy/AdvReac Type Severity Reaction Status Date / Time acetaminophen [From Percocet] AdvReac Hallucinati Verified 12/18/18 21:17 ons codeine AdvReac Disorientat Verified 12/18/18 21:17 ion oxycodone HCl [From Percocet] AdvReac Hallucinati Verified 12/18/18 21:17 ons wheat,eggs, dairy AdvReac Related to Uncoded 12/19/18 01:30 sinuses, not GI tract. Pt. consumes these foods. Home Medications: Home Meds Atenolol 50 mg PO QAM 11/07/13 [History] Calcium Carb/Vitamin D3/Vit K1 [Viactiv Soft Chew] 1 tab PO BEDTIME 11/07/13 [ History] Calcium Polycarbophil [Fibercon] 1,250 mg PO DAILY 11/07/13 [History] Ezetimibe [Zetia] 10 mg PO BEDTIME 11/07/13 [History] Fluticasone Propionate [Flonase] 2 sprays NASBOTH DAILY 11/07/13 [History] Multivitamin [Daily Multiple Vitamin] 1 tab PO DAILY 11/07/13 [History] NIFEdipine [Procardia XL] 30 mg PO BEDTIME 11/07/13 [History] Omeprazole [priLOSEC OTC] 20 mg PO DAILY 11/07/13 [History] Oxybutynin Chloride [Ditropan Xl] 10 mg PO DAILY 11/07/13 [History] Simvastatin [Zocor] 20 mg PO BEDTIME 11/07/13 [History] busPIRone [Buspar] 10 mg PO BID 11/07/13 [History] Aspirin [Halfprin] 81 mg PO DAILY 12/08/14 [History] Estrogens, Conjugated [Premarin Vaginal Crm] 0.5 gm VAG ASDIRECTED 12/08/14 [ History] [place]-3/DHA/Epa/Fish Oil [Fish Oil Dr 500 mg Softgel] 4,000 mg PO DAILY [History] Acetaminophen [Tylenol] 1,000 mg PO Q4H PRN 06/14/17 [History] Atenolol 25 mg PO QPM 06/14/17 [History] Vit A/Vit C/Vit E/Zinc/Copper [Preservision] 1 tab PO BID 06/14/17 [History] Past Medical History Cardiovascular History: Reports: Heart Murmur, High Cholesterol, Hypertension, Pulmonary Hypertension, Other (See Below) Other Cardiovascular History: enlarged heart (may be related to sleep apnea) Respiratory History: Reports: Bronchitis, Recurrent, Sleep Apnea Other Respiratory History: Uses CPAP Gastrointestinal History: Reports: Gastritis, GERD Other Gastrointestinal History: Hx of cdiff. Genitourinary History: Reports: Renal Calculus, Other (See Below) Other Genitourinary History: urgency Other OB/BYN History: tubal ligation 1986; hysterectomy 1990 Musculoskeletal History: Reports: Back Pain, Chronic Psychiatric History: Reports: Anxiety Oncologic (Cancer) History: Reports: Malignant Melanoma Dermatologic History: Reports: Melanoma Other Dermatologic History: melanoma 10 years ago. surgery to melonoma to her back/shoulder; no further treatment - Infectious Disease History Infectious Disease History: Reports: C-Difficile - Past Surgical History HEENT Surgical History: Reports: Adenoidectomy, Cataract Surgery, Naso-Sinus Surgery, Tonsillectomy Other HEENT Surgeries/Procedures: Sinus surgery x3 GI Surgical History: Reports: Appendectomy, Cholecystectomy, Colonoscopy, EGD Female Surgical History: Reports: Hysterectomy, Lithotripsy/ESWL, Tubal Ligation Neurological Surgical History: Reports: Lumbar Spine Musculoskeletal Surgical History: Reports: Carpal Tunnel, Other (See Below) Other Musculoskeletal Surgeries/Procedures:: back surgery x 1 Oncologic Surgical History: Reports: Other (See Below) Other Oncologic Surgeries/Procedures: removed melanoma Social & Family History - Family History Cardiac: Reports: Heart Failure Musculoskeletal: Reports: Arthritis, Osteoarthritis Endocrine/Metabolic: Reports: Diabetes, Type I Oncologic: Reports: Cervix, Pancreatic - Tobacco Use Smoking Status *Q: Never Smoker Second Hand Smoke Exposure: Yes - Caffeine Use Caffeine Use: Reports: Soda Other Caffeine Use: diet coke - Recreational Drug Use Recreational Drug Use: No - Living Situation & Occupation Living situation: Reports: , with Spouse Occupation: Retired H&P Review of Systems - Review of Systems: Review Of Systems: See Below General: Reports: No Symptoms HEENT: Reports: No Symptoms Pulmonary: Reports: Cough Cardiovascular: Reports: No Symptoms Gastrointestinal: Reports: Abdominal Pain, Nausea, Vomiting Genitourinary: Reports: Other (history of frequent UTI with bladder prolapse) Musculoskeletal: Reports: No Symptoms Skin: Reports: No Symptoms Psychiatric: Reports: No Symptoms Neurological: Reports: No Symptoms Hematologic/Lymphatic: Reports: No Symptoms Immunologic: Reports: No Symptoms Exam - Exam Exam: See Below - Vital Signs Vital Signs: Last Vital Signs Temp 36.7 C 12/19/18 01:16 Pulse 73 12/19/18 01:16 Resp 12 12/19/18 01:16 BP 117/85 12/19/18 01:16 Pulse Ox 100 12/19/18 05:46 Weight: 69.445 kg - Exam General: Alert, Oriented, Cooperative HEENT: Conjunctiva Clear, EOMI, Glasses Neck: Supple Lungs: Normal Respiratory Effort Cardiovascular: Regular Rate GI/Abdominal Exam: Other (soft, with moderate distention and tympany to percussion. Focal tenderness at umbilicus and at LLQ with radiation down into the groin) (Female) Exam: Deferred Rectal (Female) Exam: Deferred Back Exam: Normal Inspection (no CVA tenderness), Other (scoliosis) Skin: Warm, Dry Neurological: Normal Gait Neuro Extensive - Mental Status: Alert, Oriented x3, Normal Mood/Affect Psychiatric: Alert, Normal Affect, Normal Mood - Patient Data Lab Results Last 24 hrs: Laboratory Results - last 24 hr 12/18/18 12/18/18 12/18/18 Range/Units 22:25 22:25 22:49 WBC 13.22 H (3.98-10.04) K/mm3 RBC 4.88 (3.98-5.22) M/mm3 Hgb 13.7 D (11.2-15.7) gm/dl Hct 42.1 (34.1-44.9) % MCV 86.3 (79.4-94.8) fl MCH 28.1 (25.6-32.2) pg MCHC 32.5 (32.2-35.5) g/dl RDW Std Deviation 43.0 (36.4-46.3) fL Plt Count 266 (182-369) K/mm3 MPV 9.0 L (9.4-12.3) fl Neutrophils % (Manual) 89 H (40-60) % Band Neutrophils % 0 (0-10) % Lymphocytes % (Manual) 7 L (20-40) % Atypical Lymphs % 0 % Monocytes % (Manual) 2 (2-10) % Eosinophils % (Manual) 2 (0.7-5.8) % Basophils % (Manual) 0 L (0.1-1.2) Platelet Estimate Adequate Plt Morphology Comment Normal RBC Morph Comment Normal Sodium 139 (136-145) mEq/L Potassium 4.3 (3.5-5.1) mEq/L Chloride 104 (98-107) mEq/L Carbon Dioxide 25 (21-32) mEq/L Anion Gap 14.3 (5-15) BUN 25 H (7-18) mg/dL Creatinine 0.9 (0.55-1.02) mg/dL Est Cr Clr Drug Dosing 47.32 mL/min Estimated GFR (MDRD) > 60 (>60) mL/min BUN/Creatinine Ratio 27.8 H (14-18) Glucose 126 H (80-115) mg/dL Calcium 10.2 H (8.5-10.1) mg/dL Total Bilirubin 0.5 (0.2-1.0) mg/dL AST 27 (15-37) U/L ALT 33 (14-59) U/L Alkaline Phosphatase 99 (46-116) U/L Total Protein 8.0 (6.4-8.2) g/dl Albumin 4.2 (3.4-5.0) g/dl Globulin 3.8 gm/dL Albumin/Globulin Ratio 1.1 (1-2) Lipase 124 (73-393) U/L Urine Color Yellow (Yellow) Urine Appearance Clear (Clear) Urine pH 6.0 (5.0-8.0) Ur Specific [place] 1.020 (1.005-1.030) Urine Protein Negative (Negative) Urine Glucose (UA) Negative (Negative) Urine Ketones Negative (Negative) Urine Occult Blood Negative (Negative) Urine Nitrite Negative (Negative) Urine Bilirubin Negative (Negative) Urine Urobilinogen 0.2 (0.2-1.0) Ur Leukocyte Esterase Negative (Negative) Urine RBC Not seen (0-5) /hpf Urine WBC Not seen (0-5) /hpf Ur Epithelial Cells 0-5 (0-5) /hpf Urine Bacteria Rare (FEW) /hpf Urine Mucus Not seen (FEW) /hpf Result Diagrams: 12/18/18 22:25 12/18/18 22:25 Imaging Impressions Last 24 hrs: CT scan of the abdomen shows mildly dilated loop of small bowel in pelvis. No significant abnormal findings. No evidence of hernia, diverticulitis, colitis, abscess or ureteral obstruction. Small hiatal hernia noted with reflux of oral contrast. Consult PN Assessment/Plan Procedures: Procedures AIRWAY INHALATION TREATMENT (03/05/15) ASSAY OF AMYLASE (12/08/14) ASSAY OF LIPASE (12/13/16) BLOOD CULTURE FOR BACTERIA (03/05/15) BREAST TOMOSYNTHESIS BI (07/18/18) C-REACTIVE PROTEIN (12/13/16) CATARACT SURG W/IOL 1 STAGE (06/15/17) CHEST X-RAY 1 VIEW FRONTAL (12/08/14) CHEST X-RAY 2VW FRONTAL&LATL (03/05/15) COMP SCREEN MAMMOGRAM ADD-ON (07/02/15) COMPLETE CBC AUTOMATED (03/05/15) COMPLETE CBC W/AUTO DIFF WBC (12/13/16) COMPREHEN METABOLIC PANEL (12/13/16) CONTRAST X-RAY ESOPHAGUS (03/08/18) CT ABD & PELV W/CONTRAST (03/05/15) EMERGENCY DEPT VISIT (12/13/16) EMERGENCY DEPT VISIT (03/05/15) EMERGENCY DEPT VISIT (12/08/14) EVALUATE PT USE OF INHALER (03/05/15) HYDRATE IV INFUSION ADD-ON (12/13/16) MAMMOGRAM SCREENING (06/05/13) MEASURE BLOOD OXYGEN LEVEL (03/05/15) METABOLIC PANEL TOTAL CA (03/05/15) MICROBE SUSCEPTIBLE EVELINE (03/05/15) POLYSOM 6/> YRS 4/> JAZMIN (07/25/17) PPSV23 VACC 2 YRS+ SUBQ/IM (03/05/15) ROUTINE VENIPUNCTURE (12/13/16) SCR MAMMO BI INCL CAD (07/18/18) THER/PROPH/DIAG INJ IV PUSH (12/13/16) THER/PROPH/DIAG IV INF INIT (03/05/15) TX/PRO/DX INJ NEW DRUG ADDON (12/13/16) TX/PRO/DX INJ SAME DRUG SUPERVISING LIBRARIAN (12/13/16) TX/PROPH/DG ADDL SEQ IV INF (03/05/15) URINALYSIS AUTO W/SCOPE (12/13/16) URINE BACTERIA CULTURE (03/05/15) URINE CULTURE/COLONY COUNT (03/05/15) X-RAY EXAM OF ABDOMEN (12/13/16) X-RAY EXAM OF ABDOMEN (12/08/14) (1) Abdominal pain SNOMED Code(s): 98407434 Code(s): R10.9 - UNSPECIFIED ABDOMINAL PAIN Priority: Low Current Visit: Yes Qualifiers: Abdominal location: left lower quadrant Qualified Code(s): R10.32 - Left lower quadrant pain Assessment:: Recurrent LLQ abdominal pain of unclear etiology. The chronic, episodic nature of the pain makes infectious colitis unlikely. Her history and exam is suggestive of diverticulitis, though there is no evidence for this on cross- sectional imaging. In fact, no significant pathology is noted on CT, though her leukocytosis on presentation is indicative of active inflammation. Given her history of laparotomy for cholecystectomy and appendectomy, she may have chronic episodic abdominal pain related to adhesions with chronic low grade partial small bowel obstruction. There is no incisional hernia or groin hernia. Her pain may be associated with bladder prolapse or UTI, but UA is negative. No atherosclerotic disease noted on CT to suggest mesenteric ischemia. Recommendation: patient is due for follow-up colonoscopy, which can be done in the outpatient setting. This may elucidate the etiology of her symptoms. Problem List Initiated/Reviewed/Updated: Yes Plan: Outpatient colonoscopy, unless symptoms worsen or fail to improve, in which case the patient can be scheduled for diagnostic colonoscopy while inpatient.
[2018-12-19] MEDS: Sodium Chloride 0.9% 1,000 ML IV SCH ×2 (09:13→19:39)
--- NOTE | 2018-12-19 10:43 | CR ---
Chest: Two views of the chest were obtained. Comparison: Prior chest x-ray of 03/07/15. Slight scarring is seen within the left lung base. Lungs show no acute parenchymal change. Heart size is mildly enlarged. Tortuous thoracic aorta is seen. Scoliosis is noted within the spine. Impression: 1. Mild cardiomegaly and other findings as noted above. 2. Nothing acute is appreciated. Diagnostic code #2
--- NOTE | 2018-12-19 11:17 | US ---
Abdominal ultrasound: Multiple real-time images were obtained of the abdomen. Comparison: Previous CT abdomen and pelvis study of 12/18/18. Findings: Liver shows no focal abnormality. No discrete abnormality within the visualized pancreas. Previous cholecystectomy is noted. Common hepatic duct measures 6 mm which is likely slightly prominent from prior cholecystectomy. Common bile duct is not seen well enough to measure. Kidneys show several nonobstructing renal calculi. Kidneys show no hydronephrosis or mass. Right kidney length is 8.3 cm and left kidney length is 9.4 cm. Spleen size is felt to be within normal limits. Aorta shows no aneurysm. Inferior vena cava is patent. Portal vein shows normal hepatopedal flow. Impression: 1. Slightly prominent CHD most likely residual from prior cholecystectomy. 2. Several nonobstructing calculi within the kidneys. 3. No additional abnormality is appreciated on abdominal ultrasound. Diagnostic code #2
[2018-12-19] MEDS: Benzocaine/Cetylpyridinium/Menthol Lozenge MUCMEM PRN ×2 (11:26→20:13)
[2018-12-19] MEDS: Aspirin 81 MG Tab.EC PO SCH (17:43)
[2018-12-19] MEDS ORDERED: Atenolol 25 MG Tab PO SCH ×2 (18:00)
[2018-12-19] MEDS ORDERED: diphenhydrAMINE 25 MG Cap PO ONE (20:22)
[2018-12-19] MEDS ORDERED: busPIRone 5 MG Tab PO SCH (21:00)
[2018-12-19] MEDS ORDERED: NIFEdipine 30 MG Tab.ER PO SCH (21:00)
[2018-12-19] MEDS ORDERED: BUSPIRONE 10 MG PO SCH (21:00)
[2018-12-19] MEDS ORDERED: NIFEDIPINE 30 MG PO SCH (21:00)
[2018-12-19] MEDS ORDERED: diphenhydrAMINE 12.5 MG/5 ML Liquid 5 ML UD Cup PO ONE (21:30)
[2018-12-20] MEDS ORDERED: OMEPRAZOLE 20 MG PO SCH (06:00)
[2018-12-20] MEDS ORDERED: Atenolol 50 MG Tab PO SCH (08:00)
[2018-12-20] MEDS ORDERED: Atenolol 50 MG Tab**OWN MED PO SCH (08:00)
[2018-12-20] MEDS ORDERED: Pantoprazole 40 MG Tab.CR ONE (08:19)
[2018-12-20] MEDS: Aspirin 81 MG Tab.EC PO SCH (08:35)
[2018-12-20] MEDS ORDERED: OXYBUTYNIN 10 MG PO SCH (09:00)
[2018-12-20] MEDS ORDERED: Oxybutynin 5 MG Tab.ER PO SCH (09:00)
[2018-12-20] MEDS ORDERED: BUSPIRONE 10 MG PO SCH (09:00)
[2018-12-20 16:31] VITALS: BP 129/59; PULSE 59
--- NOTE | 2018-12-20 16:46 | PCM.DCSUM1 ---
Discharge Summary - Hospital Course HPI Initial Comments: This is a 68 year old female who came to the ED complaining of worsening abdominal pain for 1 day. As per patient she started feeling feverish around 8AM, this was associated with pain in her left lower quadrant, described as a dull ache, graded 3-4/10, non-radiating, with mild improvement after burping or having a BM. Pain associated with chills, body aches, malaise and decreased appetite. She denies any diarrhea, constipation, fatigue, weakness, bloating, changes in urine , frequency, urgency, suprapubic pain or pressure. Later on in the day she developed nausea with intractable vomiting for 1 hours for which she consulted the ED for further evaluation. Diagnosis: Stroke: No - Discharge Data Discharge Date: 12/20/18 (Admit date: 12/19/18) Discharge Disposition: Home, Self-Care 01 Condition: Good - Referral to Home Health Primary Care Physician: Karla Rabago MD - Discharge Diagnosis/Problem(s) (1) Left lower quadrant abdominal pain of unknown etiology SNOMED Code(s): 798869240, [id number] ICD Code: R10.32 - LEFT LOWER QUADRANT PAIN Status: Acute Priority: High Current Visit: Yes (2) Nausea & vomiting SNOMED Code(s): 21215723 ICD Code: R11.2 - NAUSEA WITH VOMITING, UNSPECIFIED Status: Resolved Priority: High Current Visit: Yes Qualifiers: Vomiting type: unspecified Vomiting Intractability: unspecified Qualified Code(s): R11.2 - Nausea with vomiting, unspecified - Patient Summary/Data Consults: Consultations 12/19/18 01:13 Consult to Physician [CONS] Routine Labs Pending at D/C: None Recommended Follow-up Testing/Procedures: Follow-up with PCP within 5-7 days of discharge, sooner if needed. Recommend outpatient colonoscopy within next 1-2 weeks. Hospital Course: Catalina was admitted to the hospital floor with abdominal pain accompanied by nausea and vomiting. CT scan of the ED was obtained showing increased stool and fluid within the right and transverse colon she was also noted to have bladder prolapse and other incidental findings. Nothing acute was appreciated. In the body there was some gastric distention and dilated small bowel loop without upper transition point to suggest an obstruction. The bowel proximal and distal to that was lipase 5. There was sigmoid diverticula without evidence of diverticulitis. The transverse colon and ascending colon were mildly dilated with fluid and fecal material. The descending and sigmoid colon were collapsed and there was no mass lesion seen of the transition point. Abdominal ultrasound was obtained showing slightly prominent CHD, most likely residual from prior cholecystectomy and several nonobstructing calculi within the kidneys. There is no additional abnormality appreciated. Her ED labs showed some leukocytosis and no signs of any urinary issues. She reports she is overdue for a colonoscopy and it was recommended that she obtain one within the next 1-[address] Umaña. His thought she likely has some inflammation in her lower abdomen. Her pain did improve and her nausea and vomiting resolved. She was able to eat without difficulty. She reports this pain has been an ongoing issue and she has been worked up for in the past. We discussed the possibility of following up with GI if it continues. She has not had any signs of infection such as fevers etc. She would like to be discharged today and this certainly seems reasonable. She is instructed to follow-up with her primary care provider within 5-7 days of discharge or sooner if needed. She is also instructed to obtain a colonoscopy as mentioned prior. No medication changes were made and she was discharged on all home medications. She is instructed to follow-up with her primary care provider or return to the emergency department should symptoms return or worsen. She was discharged today. - Patient Instructions Diet: Usual Diet as Tolerated Activity: As Tolerated Showering/Bathing: May Shower Notify Provider of: Fever, Increased Pain, Nausea and/or Vomiting Other/Special Instructions: Follow-up with primary care provider within 5-7 days , or sooner if needed. Recommending outpatient colonoscopy in the next 1-2 weeks. This can be scheduled with a general surgeon. Your primary care provider can assist you with setting this up. Resume all home medications. No new medications. Should symtptoms return or worsen, contact your primary care provider, or return to the Emergency Department. - Discharge Plan *PRESCRIPTION DRUG MONITORING PROGRAM REVIEWED*: No *COPY OF PRESCRIPTION DRUG MONITORING REPORT IN PATIENT DINO: No Home Medications: Home Meds Atenolol 50 mg PO QAM 11/07/13 [History] Calcium Carb/Vitamin D3/Vit K1 [Viactiv Soft Chew] 1 tab PO BEDTIME 11/07/13 [ History] Calcium Polycarbophil [Fibercon] 1,250 mg PO DAILY 11/07/13 [History] Ezetimibe [Zetia] 10 mg PO BEDTIME 11/07/13 [History] Fluticasone Propionate [Flonase] 2 sprays NASBOTH DAILY 11/07/13 [History] Multivitamin [Daily Multiple Vitamin] 1 tab PO DAILY 11/07/13 [History] NIFEdipine [Procardia XL] 30 mg PO BEDTIME 11/07/13 [History] Omeprazole [priLOSEC OTC] 20 mg PO DAILY 11/07/13 [History] Oxybutynin Chloride [Ditropan Xl] 10 mg PO DAILY 11/07/13 [History] Simvastatin [Zocor] 20 mg PO BEDTIME 11/07/13 [History] busPIRone [Buspar] 10 mg PO BID 11/07/13 [History] Aspirin [Halfprin] 81 mg PO DAILY 12/08/14 [History] Estrogens, Conjugated [Premarin Vaginal Crm] 0.5 gm VAG ASDIRECTED 12/08/14 [ History] [place]oa-3/DHA/Epa/Fish Oil [Fish Oil Dr 500 mg Softgel] 4,000 mg PO DAILY [History] Acetaminophen [Tylenol] 1,000 mg PO Q4H PRN 06/14/17 [History] Atenolol 25 mg PO QPM 06/14/17 [History] Vit A/Vit C/Vit E/Zinc/Copper [Preservision] 1 tab PO BID 06/14/17 [History] Oxygen Therapy Mode: Room Air Referrals: Karla Rabago MD [Primary Care Provider] - 12/29/18 9:00 am (Please check in at 8:45 am.) Fadi Diaz MD [Ordering Only Provider] - (Follow-up as needed) Ross Hardy MD [Consulting Physician] - (Follow-up as needed) - Discharge Summary/Plan Comment DC Time >30 min.: Yes (45 mins ) - General Info Date of Service: 12/20/18 Admission Dx/Problem (Free Text: Admission Diagnosis/Problem Admission Diagnosis/Problem Abdominal pain Functional Status: Reports: Pain Controlled, Tolerating Diet, Ambulating. Denies: New Symptoms - Review of Systems General: Reports: No Symptoms. Denies: Fever, Weakness, Fatigue, Malaise HEENT: Reports: No Symptoms. Denies: Headaches, Sore Throat Pulmonary: Reports: No Symptoms. Denies: Shortness of Breath, Pleuritic Chest Pain, Cough, Sputum, Wheezing Cardiovascular: Reports: No Symptoms. Denies: Chest Pain, Palpitations, Edema Gastrointestinal: Reports: Abdominal Pain (improved ). Denies: Constipation, Diarrhea, Nausea, Vomiting Genitourinary: Reports: No Symptoms. Denies: Pain Musculoskeletal: Reports: No Symptoms Skin: Reports: No Symptoms. Denies: Cyanosis Neurological: Reports: No Symptoms. Denies: Confusion Psychiatric: Reports: No Symptoms - Patient Data Vitals - Most Recent: Last Vital Signs Temp 97.7 F 12/20/18 14:01 Pulse 63 12/20/18 14:01 Resp 14 12/20/18 14:01 BP 115/61 12/20/18 14:01 Pulse Ox 90 L 12/20/18 14:01 Weight - Most Recent: 152 lb I&O - Last 24 hours: Intake & Output 12/20/18 12/20/18 12/20/18 06:59 14:59 22:59 Intake Total 950 60 Output Total 1550 Balance -600 60 Lab Results - Last 24 hrs: Laboratory Results - last 24 hr 12/20/18 12/20/18 Range/Units 04:35 04:35 WBC 5.71 (3.98-10.04) K/mm3 RBC 4.19 (3.98-5.22) M/mm3 Hgb 11.8 D (11.2-15.7) gm/dl Hct 37.4 (34.1-44.9) % MCV 89.3 D (79.4-94.8) fl MCH 28.2 (25.6-32.2) pg MCHC 31.6 L (32.2-35.5) g/dl RDW Std Deviation 45.1 (36.4-46.3) fL Plt Count 227 (182-369) K/mm3 MPV 9.2 L (9.4-12.3) fl Neutrophils % (Manual) 52 (40-60) % Band Neutrophils % 0 (0-10) % Lymphocytes % (Manual) 36 (20-40) % Atypical Lymphs % 0 % Monocytes % (Manual) 8 (2-10) % Eosinophils % (Manual) 4 (0.7-5.8) % Basophils % (Manual) 0 L (0.1-1.2) Platelet Estimate Adequate Plt Morphology Comment Normal RBC Morph Comment Normal Sodium 141 (136-145) mEq/L Potassium 4.0 (3.5-5.1) mEq/L Chloride 107 (98-107) mEq/L Carbon Dioxide 26 (21-32) mEq/L Anion Gap 12.0 (5-15) BUN 14 (7-18) mg/dL Creatinine 0.8 (0.55-1.02) mg/dL Est Cr Clr Drug Dosing 53.23 mL/min Estimated GFR (MDRD) > 60 (>60) mL/min BUN/Creatinine Ratio 17.5 (14-18) Glucose 92 (80-115) mg/dL Calcium 8.8 (8.5-10.1) mg/dL Phosphorus 3.6 (2.6-4.7) mg/dL Magnesium 2.1 (1.8-2.4) mg/dl Med Orders - Current: Current Medications Aspirin (Halfprin) 81 mg PO DAILY [facility] Last Admin: 12/20/18 08:35 Dose: 81 mg Atenolol (Tenormin) 25 mg PO QPM [facility] Last Admin: 12/19/18 18:13 Dose: Not Given Atenolol (Tenormin) 50 mg PO QAM [facility] Last Admin: 12/20/18 08:34 Dose: 50 mg Benzocaine/Menthol (Cepacol Sore Throat) 1 lozenge MUCMEM Q2H PRN PRN Reason: Sore Throat Last Admin: 12/19/18 20:13 Dose: 1 lozenge Hydromorphone HCl (Dilaudid) 0.5 mg IVPUSH Q2H PRN PRN Reason: Pain Last Admin: 12/19/18 09:13 Dose: 0.5 mg Nifedipine (Procardia Xl) 30 mg PO BEDTIME [facility] Last Admin: 12/19/18 20:29 Dose: 30 mg Omeprazole (Omeprazole) 20 mg PO ACBREAKFAST [facility] Last Admin: 12/20/18 05:57 Dose: 20 mg Ondansetron HCl (Zofran) 4 mg IVPUSH Q6H PRN PRN Reason: Nausea/Vomiting Oxybutynin Er 10 Mg* (*Own Med) 0 each PO DAILY [facility] Last Admin: 12/20/18 08:33 Dose: 1 each Buspirone 10 Mg (Ptom) 0 each PO BID [facility] Last Admin: 12/20/18 08:34 Dose: 1 each Discontinued Medications Atenolol (Tenormin) 25 mg PO QPM [facility] Last Admin: 12/19/18 17:43 Dose: 25 mg Atenolol (Tenormin) 50 mg PO QAM [facility] Buspirone HCl (Buspar) 10 mg PO BID [facility] Diphenhydramine HCl (Benadryl) 12.5 mg PO BEDTIME ONE Stop: 12/19/18 21:31 Last Admin: 12/19/18 22:06 Dose: 12.5 mg Hydromorphone HCl (Dilaudid) 0.5 mg IVPUSH ONETIME STA Stop: 12/18/18 21:51 Last Admin: 12/18/18 22:23 Dose: 0.5 mg Sodium Chloride (Normal Saline) 1,000 mls @ 150 mls/hr IV ASDIRECTED [facility] Last Admin: 12/18/18 22:20 Dose: 150 mls/hr Sodium Chloride (Normal Saline) 1,000 mls @ 100 mls/hr IV ASDIRECTED [facility] Last Admin: 12/19/18 19:39 Dose: 100 mls/hr Nifedipine (Procardia Xl) 30 mg PO BEDTIME [facility] Buspirone 10 Mg (Ptom) 10 each PO BID [facility] Last Admin: 12/19/18 20:29 Dose: 10 each Ondansetron HCl (Zofran) 4 mg IVPUSH ONETIME ONE Stop: 12/18/18 21:51 Last Admin: 12/18/18 22:23 Dose: 4 mg Oxybutynin Chloride (Oxybutynin Er) 10 mg PO DAILY [facility] Pantoprazole Sodium (Protonix) Confirm Administered Dose 40 mg .ROUTE .STK- MED ONE Stop: 12/20/18 08:20 - Exam Quality Assessment: Reports: DVT Prophylaxis General: Reports: Alert, Oriented, Cooperative, No Acute Distress HEENT: Reports: Pupils Equal, Pupils Reactive, EOMI, Mucous Membr. Moist/[place] Neck: Reports: Supple, Trachea Midline Lungs: Reports: Clear to Auscultation, Normal Respiratory Effort Cardiovascular: Reports: Regular Rate, Regular Rhythm GI/Abdominal Exam: Normal Bowel Sounds, Soft, No Organomegaly, No Distention, No Abnormal Bruit, No Mass, Pelvis Stable, Tender (LLQ tenderness - mild and patient reports this has improved. ) (Female) Exam: Deferred Rectal (Female) Exam: Deferred Back Exam: Reports: Normal Inspection, Full Range of Motion Extremities: Normal Inspection, Normal Range of Motion, Non-Tender, No Pedal Edema, Normal Capillary Refill Skin: Reports: Warm, Dry, Intact Neurological: Reports: No New Focal Deficit Psy/Mental Status: Reports: Alert, Normal Affect, Normal Mood
== END 2018-12-20 16:45 | disposition home or self-care (01) ==
LOC: JD.ED 20:56 → JD.MS 12-19 00:24
PROVIDERS: ADMIT Internal Medicine; ATTEND Internal Medicine
DX: R10.32 Left lower quadrant pain (principal); R11.2 Nausea with vomiting, unspecified; N81.10 Cystocele, unspecified; K57.30 Diverticulosis of large intestine without perforation or abscess without bleeding; I10 Essential (primary) hypertension; I27.20 Pulmonary hypertension, unspecified; E78.00 Pure hypercholesterolemia, unspecified; K21.9 Gastro-esophageal reflux disease without esophagitis; K44.9 Diaphragmatic hernia without obstruction or gangrene; G47.30 Sleep apnea, unspecified; N20.0 Calculus of kidney; Z88.5 Allergy status to narcotic agent; Z88.8 Allergy status to other drugs, medicaments and biological substances; Z91.012 Allergy to eggs; Z91.018 Allergy to other foods; Z99.89 Dependence on other enabling machines and devices; Z79.51 Long term (current) use of inhaled steroids; Z79.899 Other long term (current) drug therapy; Z79.82 Long term (current) use of aspirin
CPT/HCPCS: 36415; 71046; 74177; 76700; 80048; 80053; 81001; 83690; 83735; 84100; 85007; 85027; 96361; 96374; 96375; 96376; 99285; A9270; G0378; J1170; J2405; J7040; 99284

== ENCOUNTER 2019-03-19 20:24 | Inpatient (IN) | payer MEDICARE, BC ==
[2019-03-19] MEDS ORDERED: Ondansetron 4 MG/2 ML SDV IVPUSH ONE ×2 (20:59→21:00)
[2019-03-19] MEDS ORDERED: LORazepam 2 MG/ML SDV IVPUSH STA (21:00)
[2019-03-19] MEDS ORDERED: Sodium Chloride 0.9% 1,000 ML IV SCH ×2 (21:00)
[2019-03-19] MEDS ORDERED: HYDROmorphone 0.5 MG/0.5 ML Syringe IVPUSH ONE (21:00)
--- NOTE | 2019-03-19 21:06 | EDM.PDOC ---
ED HPI GENERAL MEDICAL PROBLEM - General Chief Complaint: Abdominal Pain Stated Complaint: ABDOMINAL PAIN, VOMITING Time Seen by Provider: 03/19/19 20:43 Source of Information: Reports: Patient, Family () History Limitations: Reports: No Limitations - History of Present Illness INITIAL COMMENTS - FREE TEXT/NARRATIVE: Mrs. Blount is a most pleasant 69-year-old woman with a past medical history significant for obstructive sleep apnea with subsequent pulmonary hypertension and right ventricular hypertrophy, on nightly CPAP, untreated anxiety, diverticulosis without a history of diverticulitis, and unspecified colitis seen on colonoscopy, who states that she developed left lower quadrant abdominal pain that radiates across her lower abdomen, around noon. She characterizes the pain as burning/stabbing. It has been waxing and waning since it began. She has not identified any modifiers. She also reports bilateral mid- back pain that developed around 16:30 to 17:00. She reports having some nausea and vomiting since around 16:00 to 16:30. No recent fever, watery diarrhea, or urinary symptoms. No recent chest pain, palpitations, cough, or dyspnea. No urinary symptoms. The patient states that she has had similar symptoms a few times over the past 5 years, most recently in November 2018. Her workup at that time included a CT scan, which was negative, indeed, all of her workups have been negative. She last ate around 13:30 this afternoon. The patient's PCP is Dr. Karla Rabago. Her Well Site Drilling Engineer is Dr. Sydnie Gregorio. Her Surgeon is Dr. Chantell Aguilera. She received an influenza vaccine this season. Abdomen Pain Score (Numeric/FACES): 8 Middle Back Pain Score (Numeric/FACES): 8 - Related Data Allergies Allergy/AdvReac Type Severity Reaction Status Date / Time acetaminophen [From Percocet] AdvReac Hallucinati Verified 12/18/18 21:17 ons codeine AdvReac Disorientat Verified 12/18/18 21:17 ion oxycodone HCl [From Percocet] AdvReac Hallucinati Verified 12/18/18 21:17 ons wheat,eggs, dairy AdvReac Related to Uncoded 12/19/18 01:30 sinuses, not GI tract. Pt. consumes these foods. Home Meds: Home Meds Calcium Carb/Vitamin D3/Vit K1 [Viactiv Soft Chew] 1 tab PO BEDTIME 11/07/13 [ History] Calcium Polycarbophil [Fibercon] 1,250 mg PO DAILY 11/07/13 [History] Ezetimibe [Zetia] 10 mg PO BEDTIME 11/07/13 [History] Fluticasone Propionate [Flonase] 2 sprays NASBOTH DAILY 11/07/13 [History] Multivitamin [Daily Multiple Vitamin] 1 tab PO DAILY 11/07/13 [History] NIFEdipine [Procardia XL] 30 mg PO BEDTIME 11/07/13 [History] Omeprazole [priLOSEC OTC] 20 mg PO DAILY 11/07/13 [History] Oxybutynin Chloride [Ditropan Xl] 10 mg PO DAILY 11/07/13 [History] Simvastatin [Zocor] 20 mg PO BEDTIME 11/07/13 [History] atenoloL [Atenolol] 50 mg PO QAM 11/07/13 [History] busPIRone [Buspar] 10 mg PO BID 11/07/13 [History] Aspirin [Halfprin] 81 mg PO DAILY 12/08/14 [History] Estrogens, Conjugated [Premarin Vaginal Crm] 0.5 gm VAG ASDIRECTED 12/08/14 [ History] [place]-3/DHA/Epa/Fish Oil [Fish Oil Dr 500 mg Softgel] 4,000 mg PO DAILY [History] Acetaminophen [Tylenol] 1,000 mg PO Q4H PRN 06/14/17 [History] Vit A/Vit C/Vit E/Zinc/Copper [Preservision] 1 tab PO BID 06/14/17 [History] atenoloL [Atenolol] 25 mg PO QPM 06/14/17 [History] Past Medical History Cardiovascular History: Reports: High Cholesterol, Hypertension, Pulmonary Hypertension (2 [facility]), Other (See Below) ([facility] 2 pulmonary hypertension) Respiratory History: Reports: Sleep Apnea (nightly CPAP) Gastrointestinal History: Reports: Diverticulosis, Gastritis, GERD, Hiatal Hernia, Other (See Below) (Colitis, unspecified) Genitourinary History: Reports: Renal Calculus Psychiatric History: Reports: Anxiety (untreated) Oncologic (Cancer) History: Reports: Malignant Melanoma - Infectious Disease History Infectious Disease History: Reports: C-Difficile - Past Surgical History HEENT Surgical History: Reports: Adenoidectomy, Cataract Surgery (bilateral), Naso-Sinus Surgery (x 3), Tonsillectomy GI Surgical History: Reports: Appendectomy, Cholecystectomy (1980), Colonoscopy , EGD Female Surgical History: Reports: Hysterectomy (partial), Lithotripsy/ESWL, Tubal Ligation Neurological Surgical History: Reports: Lumbar Spine Musculoskeletal Surgical History: Reports: Carpal Tunnel Oncologic Surgical History: Reports: Other (See Below) (Excision of melanoma off back) Social & Family History - Family History Cardiac: Reports: Heart Failure Musculoskeletal: Reports: Arthritis, Osteoarthritis Endocrine/Metabolic: Reports: Diabetes, Type I Oncologic: Reports: Cervix, Pancreatic - Tobacco Use Smoking Status *Q: Never Smoker - Caffeine Use Caffeine Use: Reports: Coffee, Soda, Tea Other Caffeine Use: diet coke - Recreational Drug Use Recreational Drug Use: No - Living Situation & Occupation Living situation: Reports: , with Spouse Occupation: Retired ED ROS GENERAL - Review of Systems Review Of Systems: Comprehensive ROS is negative, except as noted in HPI. Musculoskeletal: Reports: Back Pain ED EXAM, GI/ABD - Physical Exam Exam: See Below Exam Limited By: No Limitations General Appearance: Alert, WD/WN, Anxious (hyperventilating) Eyes: Bilateral: Normal Appearance, EOMI Ears: Normal External Exam, Hearing Grossly Normal Nose: Normal Inspection Throat/Mouth: Normal Inspection, Normal Lips, Normal Oropharynx, Normal Voice, No Airway Compromise Head: Atraumatic, Normocephalic Neck: Normal Inspection, Full Range of Motion Respiratory/Chest: No Respiratory Distress, Lungs Clear, Normal Breath Sounds, No Accessory Muscle Use Cardiovascular: Normal Peripheral Pulses, Regular Rate, Rhythm, No Edema, No Gallop, No JVD, No Murmur, No Rub GI/Abdominal Exam: Normal Bowel Sounds, Soft, No Organomegaly, No Distention, No Abnormal Bruit, No Mass, Tender (Exquisite in the left lower quadrant, with significant tenderness to the left upper quadrant and left abdomen. Essentially nontender elsewhere.) (Female) Exam: Deferred Rectal (Female) Exam: Deferred Back Exam: Normal Inspection, Full Range of Motion. No: CVA Tenderness (L), CVA Tenderness (R) Extremities: Normal Inspection, Normal Range of Motion, No Pedal Edema, Normal Capillary Refill Neurological: Alert, Oriented, Normal Cognition, No Motor/Sensory Deficits Psychiatric: Anxious Skin Exam: Warm, Dry, Intact, Normal Color, No Rash Course - Vital Signs Last Recorded V/S: Last Vital Signs Temp 36.2 C 03/19/19 20:35 Pulse 70 03/19/19 20:35 Resp 20 03/19/19 20:35 BP 125/75 03/19/19 20:35 Pulse Ox 100 03/19/19 20:35 - Orders/Labs/Meds Orders: Active Orders 24 hr Category Date Time Status Admission Status [Patient Status] [ADT] Routine ADT 03/20/19 00:55 Active Abdomen Pelvis w Cont [CT] Stat Exams 03/19/19 20:59 Taken Sodium Chloride 0.9% [Normal Saline] 1,000 ml Med 03/19/19 21:00 Active IV ASDIRECTED Sodium Chloride 0.9% [Normal Saline] 1,000 ml Med 03/19/19 21:00 Active IV ASDIRECTED Sodium Chloride 0.9% [Saline Flush] Med 03/19/19 21:14 Active 10 ml FLUSH ONETIME PRN NG [Nasogastric Orogastric Tube Insertion] [OM.PC] Oth 03/20/19 00:28 Ordered Routine Medication Orders Sodium Chloride (Normal Saline) 1,000 mls @ 150 mls/hr IV ASDIRECTED DIANE Last Admin: 03/19/19 21:14 Dose: 150 mls/hr Sodium Chloride (Normal Saline) 1,000 mls @ 150 mls/hr IV ASDIRECTED DIANE Sodium Chloride (Saline Flush) 10 ml FLUSH ONETIME PRN PRN Reason: KEEP VEIN OPEN Last Admin: 03/19/19 22:58 Dose: 10 ml Labs: Laboratory Tests 03/19/19 03/19/19 Range/Units 21:05 21:05 WBC 14.59 H (3.98-10.04) K/mm3 RBC 5.55 H (3.98-5.22) M/mm3 Hgb 14.7 D (11.2-15.7) gm/dl Hct 46.0 H (34.1-44.9) % MCV 82.9 D (79.4-94.8) fl MCH 26.5 (25.6-32.2) pg MCHC 32.0 L (32.2-35.5) g/dl RDW Std Deviation 44.8 (36.4-46.3) fL Plt Count 318 D (182-369) K/mm3 MPV 9.5 (9.4-12.3) fl Neutrophils % (Manual) 85 H (40-60) % Band Neutrophils % 0 (0-10) % Lymphocytes % (Manual) 10 L (20-40) % Atypical Lymphs % 0 % Monocytes % (Manual) 2 (2-10) % Eosinophils % (Manual) 3 (0.7-5.8) % Basophils % (Manual) 0 L (0.1-1.2) Platelet Estimate Adequate Anisocytosis 1+ slight RBC Morph Comment Not Reportable Sodium 141 (136-145) mEq/L Potassium 4.3 (3.5-5.1) mEq/L Chloride 102 (98-107) mEq/L Carbon Dioxide 26 (21-32) mEq/L Anion Gap 17.3 H (5-15) BUN 20 H (7-18) mg/dL Creatinine 1.2 H (0.55-1.02) mg/dL Est Cr Clr Drug Dosing 33.39 mL/min Estimated GFR (MDRD) 45 (>60) mL/min BUN/Creatinine Ratio 16.7 (14-18) Glucose 143 H (80-115) mg/dL Calcium 10.6 H D (8.5-10.1) mg/dL Total Bilirubin 0.5 (0.2-1.0) mg/dL AST 28 (15-37) U/L ALT 40 (14-59) U/L Alkaline Phosphatase 106 (46-116) U/L Total Protein 8.5 H (6.4-8.2) g/dl Albumin 4.5 (3.4-5.0) g/dl Globulin 4.0 gm/dL Albumin/Globulin Ratio 1.1 (1-2) Meds: Medications Generic Name Dose Route Start Last Admin Trade Name Freq PRN Reason Stop Dose Admin Sodium Chloride 1,000 mls @ 150 mls/hr 03/19/19 21:00 03/19/19 21:14 Normal Saline IV 150 mls/hr ASDIRECTED DIANE Administration Sodium Chloride 1,000 mls @ 150 mls/hr 03/19/19 21:00 Normal Saline IV ASDIRECTED DIANE Sodium Chloride 10 ml 03/19/19 21:14 03/19/19 22:58 Saline Flush FLUSH 10 ml ONETIME PRN Administration KEEP VEIN OPEN Discontinued Medications Generic Name Dose Route Start Last Admin Trade Name Daniel PRN Reason Stop Dose Admin Diatrizoate Meglum/Diatrizoate Sod 60 ml 03/19/19 21:14 03/19/19 22:58 Gastrografin 37% PO 03/19/19 21:15 60 ml ONETIME ONE Administration Hydromorphone HCl 0.5 mg 03/19/19 21:00 03/19/19 21:16 Dilaudid IVPUSH 03/19/19 21:01 0.5 mg ONETIME ONE Administration Iopamidol 100 ml 03/19/19 21:14 03/19/19 22:58 Isovue-300 (61%) IVPUSH 03/19/19 21:15 100 ml ONETIME ONE Administration Lorazepam 0.5 mg 03/19/19 21:00 03/19/19 21:18 Ativan IVPUSH 03/19/19 21:01 0.5 mg ONETIME STA Administration Ondansetron HCl 4 mg 03/19/19 20:59 03/19/19 21:13 Zofran IVPUSH 03/19/19 21:00 4 mg ONETIME ONE Administration Ondansetron HCl 4 mg 03/19/19 21:00 Zofran IVPUSH 03/19/19 21:01 ONETIME ONE - Re-Assessments/Exams Free Text/Narrative Re-Assessment/Exam: 03/19/19 21:03 While it is true that the patient states that she has had several similar episodes over the past 5 years, and that all prior workups have been negative, given the patient's exquisite left lower quadrant tenderness, I don't think I can avoid another workup. I have therefore ordered blood work and a CT scan of her abdomen and pelvis with oral and IV contrast. The patient is also suffering from rather extreme anxiety which is likely exacerbating the patient's perception of pain. I have ordered some IV Dilaudid, IV Ativan, IV Zofran, and IV fluid. 03/19/19 23:45 The patient was reevaluated. She is now calm and in no pain whatsoever. 03/19/19 23:58 The patient's CBC is remarkable for a WBC count elevated at 14.9, but with 0% bandemia. Her Hct is mildly elevated at 46.0. The remainder of her CBC is unremarkable. Her CMP is remarkable for an anion gap slightly elevated at 17.3, but with a bicarbonate normal at 26. Her creatinine is slightly elevated at 1.2. Her blood glucose is mildly elevated at 143. The remainder of her CMP is unremarkable. CT of the abdomen and pelvis with oral and IV contrast is read by [facility] as: 1. Findings consistent with a small bowel obstruction. Findings suspicious for enteritis involving the small bowel just beyond the dilated segment. No pneumatosis. No free intraperitoneal air. 2. Moderate gastric distention. 3. Mild fatty infiltration of the liver. 4. Small amount of free fluid in the pelvis. 5. Incidental/nonacute findings are listed in the report. The patient's elevated WBC count is most likely due to a stress reaction ( demargination), not an infection. 03/20/19 00:14 Test results discussed with the patient and her . Based on the CT findings, I am recommending an NG tube be placed to LIS, that she receive IV fluid, pain medication if she needs it, anti-nausea medication if she needs it, and ambulate the halls as much as possible. The patient agreed. I will write bridge orders. I will leave it up to Dr. Cervantes to determine in the morning if a surgical consult is necessary. The patient's will go home to get the patient's CPAP machine. Departure - Departure Time of Disposition: 00:15 Disposition: Admitted As Inpatient 66 Condition: Good Clinical Impression: Small bowel obstruction, Anxiety - Discharge Information *PRESCRIPTION DRUG MONITORING PROGRAM REVIEWED*: Not Applicable *COPY OF PRESCRIPTION DRUG MONITORING REPORT IN PATIENT DINO: Not Applicable Referrals: Karla Rabago MD [Primary Care Provider] - Sydnie Gregorio Om, MD [Ordering Only Provider] - Sharon Aguilera MD [Physician] - Forms: ED Department Discharge Sepsis Event Note - Evaluation Sepsis Screening Result: No Definite Risk - Focused Exam Vital Signs: Vital Signs Temp Pulse Resp BP Pulse Ox 03/19/19 20:35 36.2 C 70 20 125/75 100 Date Exam was Performed: 03/20/19 Time Exam was Performed: 00:59 - My Orders Last 24 Hours: My Active Orders 03/19/19 20:59 Abdomen Pelvis w Cont [CT] Stat 03/19/19 21:00 Sodium Chloride 0.9% [Normal Saline] 1,000 ml IV ASDIRECTED Sodium Chloride 0.9% [Normal Saline] 1,000 ml IV ASDIRECTED 03/19/19 21:14 Sodium Chloride 0.9% [Saline Flush] 10 ml FLUSH ONETIME PRN 03/20/19 00:28 NG [Nasogastric Orogastric Tube Insertion] [OM.PC] Routine 03/20/19 00:55 Admission Status [Patient Status] [ADT] Routine - Assessment/Plan Last 24 Hours: My Active Orders 03/19/19 20:59 Abdomen Pelvis w Cont [CT] Stat 03/19/19 21:00 Sodium Chloride 0.9% [Normal Saline] 1,000 ml IV ASDIRECTED Sodium Chloride 0.9% [Normal Saline] 1,000 ml IV ASDIRECTED 03/19/19 21:14 Sodium Chloride 0.9% [Saline Flush] 10 ml FLUSH ONETIME PRN 03/20/19 00:28 NG [Nasogastric Orogastric Tube Insertion] [OM.PC] Routine 03/20/19 00:55 Admission Status [Patient Status] [ADT] Routine
[2019-03-19] MEDS ORDERED: Iopamidol 612 MG/ML 100 ML Bottle IVPUSH ONE (21:14)
[2019-03-19] MEDS ORDERED: Sodium Chloride 0.9% 10 ML Syringe FLUSH PRN (21:14)
[2019-03-19] MEDS ORDERED: Diatrizoate Meglumine/Diatrizoate Sodium 37% 120 ML Bottle PO ONE (21:14)
[2019-03-20] MEDS ORDERED: HYDROmorphone 0.5 MG/0.5 ML Syringe IVPUSH PRN (01:58)
[2019-03-20] MEDS ORDERED: Ondansetron 4 MG/2 ML SDV IVPUSH PRN (02:00)
[2019-03-20] MEDS: Lactated Ringers 1,000 ML IV SCH ×2 (02:38→13:37)
[2019-03-20] MEDS: LORazepam 2 MG/ML SDV IVPUSH PRN ×2 (02:40→22:10)
--- NOTE | 2019-03-20 07:25 | CT ---
CT abdomen and pelvis Technique: Multiple axial sections were obtained from above the dome of the diaphragm inferiorly through the pubic symphysis. Intravenous and oral contrast was utilized. Delayed images were obtained through the bladder. Findings: Visualized lung bases show nothing acute. Mild atelectasis is noted. Minimal fatty infiltration is seen within the liver. Liver contains no focal abnormality. Spleen appears within normal limits. Adrenal glands contain no nodule. Kidneys show symmetric contrast enhancement without hydronephrosis. Nonobstructing stone is noted within the left kidney measuring 4.3 mm. Small hiatal hernia is seen with gastroesophageal reflux of contrast. Gallbladder not visualized. Pancreas is within normal limits. Aorta shows mild atherosclerotic calcification without aneurysm. No retroperitoneal adenopathy or mesenteric abnormalities are seen. No pelvic mass or adenopathy is seen. Small amount of increased fluid is seen within the dependent pelvis. Dilated small bowel loops are noted. Small bowel is dilated down to the lower abdomen. On the right side there is one loop of distal small bowel showing fecalized content within adjacent distal small bowel loop appearing less dilated with bowel wall thickening and surrounding inflammatory change. This finding is felt to cause the more proximal small bowel obstruction. Other more distal small bowel loops are normal in appearance. Appendix not definitely visualized. Delayed images show contrast within the distal ureters and within the bladder. Degenerative change and scoliosis is present within the spine. Impression: 1. Focal bowel wall thickening within a loop with distal small bowel involving the ileum. This shows enhancing wall with surrounding inflammatory change and most likely represents a focal area of enteritis. This causes proximal small bowel obstruction. 2. Mild amount of fluid within the pelvis most likely reactive from the small bowel obstruction. 3. Other findings believed to be incidental and nonacute as described above. Diagnostic code #3 This report was dictated in [place] Standard Time I agree with preliminary report from [facility], finalized on 03/20/19, 12:52 AM Central Time
[2019-03-20] MEDS ORDERED: Metoprolol Tartrate 5 MG/5 ML SDV IVPUSH PRN (09:04)
[2019-03-20] MEDS: metroNIDAZOLE/Normal Saline 500 MG in Premix Bag 1 BAG IV SCH ×2 (09:58→16:30)
--- NOTE | 2019-03-20 10:00 | PCM.HP.2 ---
H&P History of Present Illness - General Date of Service: 03/20/19 Admit Problem/Dx: Admission Diagnosis/Problem Admission Diagnosis/Problem Small bowel obstruction - History of Present Illness Initial Comments - Free Text/Narative: 69-year-old female with history of obstructive sleep apnea and pulmonary hypertension, right ventricular hypertrophy, on CPAP, anxiety, and colitis who has had off-and-on abdominal pain since November presented to the emergency room last night with worsening left lower quadrant pain, nausea, vomiting and cold sweats. Patient states that since November she has had left lower quadrant pain. She has had a colonoscopy which did show some polyps and colitis but nothing specific on diagnosis. Patient also had a positive Campylobacter and was treated with Zithromax last week from Wednesday to Wednesday. Patient had a repeat stool study which was negative for Campylobacter and lactoferrin. Patient has been seen by Dr. Sexton in surgery who did her colonoscopy and stool work-up. I spoke with Dr. Sexton who helped fill in the gaps of the history. Patient did have a CT scan on March 14, 2019 which was negative. In the emergency room patient had a CT of the abdomen which found focal bowel wall thickening within a loop with distal small bowel involving the ileum. This shows enhancing wall with surrounding inflammatory change and most likely represents a focal area of enteritis. This causes proximal small bowel obstruction. At that time patient had NG tube placed to low intermittent suction, she was given pain medication and Zofran for nausea, started on IV fluids and sent to the floor. Abdomen Pain Score (Numeric/FACES): 8 Middle Back Pain Score (Numeric/FACES): 8 - Related Data Allergies/Adverse Reactions: Allergies Allergy/AdvReac Type Severity Reaction Status Date / Time acetaminophen [From Percocet] AdvReac Hallucinati Verified 03/20/19 01:54 ons codeine AdvReac Disorientat Verified 03/20/19 01:54 ion oxycodone HCl [From Percocet] AdvReac Hallucinati Verified 03/20/19 01:54 ons wheat,eggs, dairy AdvReac Related to Uncoded 12/19/18 01:30 sinuses, not GI tract. Pt. consumes these foods. Home Medications: Home Meds Calcium Carb/Vitamin D3/Vit K1 [Viactiv Soft Chew] 1 tab PO BEDTIME 11/07/13 [ History] Calcium Polycarbophil [Fibercon] 1,250 mg PO DAILY 11/07/13 [History] Ezetimibe [Zetia] 10 mg PO BEDTIME 11/07/13 [History] Fluticasone Propionate [Flonase] 2 sprays NASBOTH DAILY 11/07/13 [History] Multivitamin [Daily Multiple Vitamin] 1 tab PO DAILY 11/07/13 [History] NIFEdipine [Procardia XL] 30 mg PO BEDTIME 11/07/13 [History] Omeprazole [priLOSEC OTC] 20 mg PO DAILY 11/07/13 [History] Oxybutynin Chloride [Ditropan Xl] 10 mg PO DAILY 11/07/13 [History] Simvastatin [Zocor] 20 mg PO BEDTIME 11/07/13 [History] atenoloL [Atenolol] 50 mg PO QAM 11/07/13 [History] busPIRone [Buspar] 10 mg PO BID 11/07/13 [History] Aspirin [Halfprin] 81 mg PO DAILY 12/08/14 [History] Estrogens, Conjugated [Premarin Vaginal Crm] 0.5 gm VAG ASDIRECTED 12/08/14 [ History] [place]-3/DHA/Epa/Fish Oil [Fish Oil Dr 500 mg Softgel] 1,000 mg PO DAILY [History] Acetaminophen [Tylenol] 1,000 mg PO Q4H PRN 06/14/17 [History] Vit A/Vit C/Vit E/Zinc/Copper [Preservision] 1 tab PO BID 06/14/17 [History] atenoloL [Atenolol] 25 mg PO QPM 06/14/17 [History] ALPRAZolam [Alprazolam] 0.25 mg PO Q8H PRN 03/20/19 [History] Past Medical History Cardiovascular History: Reports: Heart Murmur, High Cholesterol, Hypertension, Pulmonary Hypertension, Other (See Below) Other Cardiovascular History: cardiomegaly Respiratory History: Reports: Sleep Apnea Other Respiratory History: CPAP Gastrointestinal History: Reports: Diverticulosis, Gastritis, GERD, Hiatal Hernia, Other (See Below) Other Gastrointestinal History: Hx of cdiff. Genitourinary History: Reports: Renal Calculus Other Genitourinary History: 1 stone in each kidney as they were unable to remove them Other OB/BYN History: tubal ligation 1986; hysterectomy 1990 Musculoskeletal History: Reports: Back Pain, Chronic Psychiatric History: Reports: Anxiety Oncologic (Cancer) History: Reports: Malignant Melanoma Dermatologic History: Reports: Melanoma Other Dermatologic History: melanoma 10 years ago. surgery to melonoma to her back/shoulder; no further treatment - Infectious Disease History Infectious Disease History: Reports: C-Difficile - Past Surgical History HEENT Surgical History: Reports: Adenoidectomy, Cataract Surgery, Naso-Sinus Surgery, Tonsillectomy GI Surgical History: Reports: Appendectomy, Cholecystectomy, Colonoscopy, EGD Female Surgical History: Reports: Hysterectomy, Lithotripsy/ESWL, Tubal Ligation Neurological Surgical History: Reports: Lumbar Spine Musculoskeletal Surgical History: Reports: Carpal Tunnel Other Musculoskeletal Surgeries/Procedures:: back surgery x 1 Oncologic Surgical History: Reports: Other (See Below) Other Oncologic Surgeries/Procedures: removed melanoma Social & Family History - Family History Family Medical History: Noncontributory Cardiac: Reports: Heart Failure Musculoskeletal: Reports: Arthritis, Osteoarthritis Endocrine/Metabolic: Reports: Diabetes, Type I Oncologic: Reports: Cervix, Pancreatic - Tobacco Use Smoking Status *Q: Never Smoker Second Hand Smoke Exposure: No - Caffeine Use Caffeine Use: Reports: Coffee, Soda, Tea Other Caffeine Use: 1-2 cup - Recreational Drug Use Recreational Drug Use: No - Living Situation & Occupation Living situation: Reports: , with Spouse Occupation: Retired H&P Review of Systems - Review of Systems: Review Of Systems: Comprehensive ROS is negative, except as noted in HPI. Exam - Exam Exam: See Below - Vital Signs Vital Signs: Last Vital Signs Temp 98.8 F 03/20/19 06:28 Pulse 83 03/20/19 06:28 Resp 16 03/20/19 06:28 BP 114/63 03/20/19 06:28 Pulse Ox 93 L 03/20/19 09:30 Weight: 153 lb 9.6 oz - Exam Quality Assessment: Supplemental Oxygen General: Alert HEENT: Conjunctiva Clear, EACs Clear, Hearing Intact, Mucosa Moist & [place] Neck: Supple, Trachea Midline Lungs: Clear to Auscultation, Normal Respiratory Effort Cardiovascular: Regular Rate, Regular Rhythm GI/Abdominal Exam: Normal Bowel Sounds (Intermittent suction), Soft, Distended, Tender (No guarding or rebound) Back Exam: Normal Inspection Extremities: Normal Inspection, Non-Tender, No Pedal Edema, Normal Capillary Refill Skin: Warm, Dry, Intact Neuro Extensive - Mental Status: Alert, Oriented x3, Normal Mood/Affect, Normal Cognition, Memory Intact Neuro Extensive - Motor, Sensory, Reflexes: CN II-XII Intact Psychiatric: Alert, Normal Affect, Normal Mood - Patient Data Lab Results Last 24 hrs: Laboratory Results - last 24 hr 03/19/19 03/19/19 03/20/19 Range/Units 21:05 21:05 06:14 WBC 14.59 H (3.98-10.04) K/mm3 RBC 5.55 H (3.98-5.22) M/mm3 Hgb 14.7 D (11.2-15.7) gm/dl Hct 46.0 H (34.1-44.9) % MCV 82.9 D (79.4-94.8) fl MCH 26.5 (25.6-32.2) pg MCHC 32.0 L (32.2-35.5) g/dl RDW Std Deviation 44.8 (36.4-46.3) fL Plt Count 318 D (182-369) K/mm3 MPV 9.5 (9.4-12.3) fl Neut % (Auto) (34.0-71.1) % Lymph % (Auto) (19.3-51.7) % [place] % (Auto) (4.7-12.5) % Eos % (Auto) (0.7-5.8) Baso % (Auto) (0.1-1.2) % Neut # (Auto) (1.56-6.13) K/mm3 Lymph # (Auto) (1.18-3.74) K/mm3 [place] # (Auto) (0.24-0.36) K/mm3 Eos # (Auto) (0.04-0.36) K/mm3 Baso # (Auto) (0.01-0.08) K/mm3 Neutrophils % (Manual) 85 H (40-60) % Band Neutrophils % 0 (0-10) % Lymphocytes % (Manual) 10 L (20-40) % Atypical Lymphs % 0 % Monocytes % (Manual) 2 (2-10) % Eosinophils % (Manual) 3 (0.7-5.8) % Basophils % (Manual) 0 L (0.1-1.2) Platelet Estimate Adequate Anisocytosis 1+ slight RBC Morph Comment Not Reportable Sodium 141 139 (136-145) mEq/L Potassium 4.3 4.0 (3.5-5.1) mEq/L Chloride 102 103 (98-107) mEq/L Carbon Dioxide 26 24 (21-32) mEq/L Anion Gap 17.3 H 16.0 H (5-15) BUN 20 H 18 (7-18) mg/dL Creatinine 1.2 H 1.0 (0.55-1.02) mg/dL Est Cr Clr Drug Dosing 33.39 40.07 mL/min Estimated GFR (MDRD) 45 55 (>60) mL/min BUN/Creatinine Ratio 16.7 18.0 (14-18) Glucose 143 H 108 (80-115) mg/dL Calcium 10.6 H D 9.0 D (8.5-10.1) mg/dL Total Bilirubin 0.5 (0.2-1.0) mg/dL AST 28 (15-37) U/L ALT 40 (14-59) U/L Alkaline Phosphatase 106 (46-116) U/L Total Protein 8.5 H (6.4-8.2) g/dl Albumin 4.5 (3.4-5.0) g/dl Globulin 4.0 gm/dL Albumin/Globulin Ratio 1.1 (1-2) 03/20/19 Range/Units 06:14 WBC 10.28 H (3.98-10.04) K/mm3 RBC 4.38 (3.98-5.22) M/mm3 Hgb 11.7 D (11.2-15.7) gm/dl Hct 37.0 (34.1-44.9) % MCV 84.5 (79.4-94.8) fl MCH 26.7 (25.6-32.2) pg MCHC 31.6 L (32.2-35.5) g/dl RDW Std Deviation 45.4 (36.4-46.3) fL Plt Count 246 (182-369) K/mm3 MPV 9.4 (9.4-12.3) fl Neut % (Auto) 80.6 H (34.0-71.1) % Lymph % (Auto) 12.5 L (19.3-51.7) % [place] % (Auto) 6.6 (4.7-12.5) % Eos % (Auto) 0.1 L (0.7-5.8) Baso % (Auto) 0.1 (0.1-1.2) % Neut # (Auto) 8.28 H (1.56-6.13) K/mm3 Lymph # (Auto) 1.29 (1.18-3.74) K/mm3 [place] # (Auto) 0.68 H (0.24-0.36) K/mm3 Eos # (Auto) 0.01 L (0.04-0.36) K/mm3 Baso # (Auto) 0.01 (0.01-0.08) K/mm3 Neutrophils % (Manual) (40-60) % Band Neutrophils % (0-10) % Lymphocytes % (Manual) (20-40) % Atypical Lymphs % % Monocytes % (Manual) (2-10) % Eosinophils % (Manual) (0.7-5.8) % Basophils % (Manual) (0.1-1.2) Platelet Estimate Anisocytosis RBC Morph Comment Sodium (136-145) mEq/L Potassium (3.5-5.1) mEq/L Chloride (98-107) mEq/L Carbon Dioxide (21-32) mEq/L Anion Gap (5-15) BUN (7-18) mg/dL Creatinine (0.55-1.02) mg/dL Est Cr Clr Drug Dosing mL/min Estimated GFR (MDRD) (>60) mL/min BUN/Creatinine Ratio (14-18) Glucose (80-115) mg/dL Calcium (8.5-10.1) mg/dL Total Bilirubin (0.2-1.0) mg/dL AST (15-37) U/L ALT (14-59) U/L Alkaline Phosphatase (46-116) U/L Total Protein (6.4-8.2) g/dl Albumin (3.4-5.0) g/dl Globulin gm/dL Albumin/Globulin Ratio (1-2) Result Diagrams: 03/20/19 06:14 03/20/19 06:14 Sepsis Event Note - Evaluation Sepsis Screening Result: No Definite Risk - Focused Exam Vital Signs: Vital Signs Temp Pulse Resp BP Pulse Ox Pulse Ox Pulse Ox 01/20/20 09:30 93 L 03/20/19 09:04 93 L 03/20/19 08:42 96 03/20/19 06:28 98.8 F 83 16 114/63 95 03/20/19 01:29 97.3 F 65 16 127/89 94 L Date Exam was Performed: 03/20/19 Time Exam was Performed: 13:07 Problem List Initiated/Reviewed/Updated: Yes Orders Last 24hrs: Active Orders 24 hr Category Date Time Status Admission Status [Patient Status] [ADT] Routine ADT 03/20/19 00:55 Active Antiembolic Devices [RC] PER UNIT ROUTINE Care 03/20/19 09:04 Ordered Oxygen Therapy [RC] PRN Care 03/20/19 02:41 Active Oxygen Therapy [RC] PRN Care 03/20/19 09:02 Ordered Up ad [place] [RC] ASDIRECTED Care 03/20/19 09:02 Ordered VTE/DVT Education [RC] PER UNIT ROUTINE Care 03/20/19 09:02 Ordered Vital Signs [RC] Q4H Care 03/20/19 09:02 Ordered Nothing Per Oral Diet [DIET] Diet 03/20/19 Breakfast Active CBC WITH AUTO DIFF [HEME] AM Lab 03/21/19 05:11 Ordered COMPREHENSIVE METABOLIC PN,CMP [CHEM] AM Lab 03/21/19 05:11 Ordered FE, TIBC, TRANSFERRIN, FE SAT [CHEM] Routine Lab 03/20/19 09:15 Ordered MAGNESIUM [CHEM] AM Lab 03/21/19 05:11 Ordered VITAMIN B12 [CHEM] Routine Lab 03/20/19 09:14 Ordered VITAMIN D,25-HYDROXY [CHEM] Routine Lab 03/20/19 09:15 Ordered HYDROmorphone [Dilaudid] Med 03/20/19 01:58 Active 0.5 mg IVPUSH Q1H PRN LORazepam [Ativan] Med 03/20/19 02:01 Active 0.5 mg IVPUSH Q3H PRN Lactated Ringers [Ringers, Lactated] 1,000 ml Med 03/20/19 02:00 Active IV ASDIRECTED Metoprolol Tartrate [Lopressor] Med 03/20/19 09:04 Ordered 5 mg IVPUSH Q4H PRN Ondansetron [Zofran] Med 03/20/19 02:00 Active 4 mg IVPUSH Q6H PRN Sodium Chloride 0.9% [Saline Flush] Med 03/19/19 21:14 Active 10 ml FLUSH ONETIME PRN metroNIDAZOLE/Normal Saline [Flagyl 500 MG in NS 100 ML Med 03/20/19 09:30 Ordered ] 500 mg Premix Bag 1 bag IV Q8H NG [Nasogastric Orogastric Tube Insertion] [OM.PC] Oth 03/20/19 00:28 Ordered Routine Sequential Compression Device [OM.PC] Per Unit Routine Oth 03/20/19 09:03 Ordered Resuscitation Status Routine Resus Stat 03/20/19 01:56 Ordered Medication Orders Hydromorphone HCl (Dilaudid) 0.5 mg IVPUSH Q1H PRN PRN Reason: Pain Lactated Ringer's (Ringers, Lactated) 1,000 mls @ 100 mls/hr IV ASDIRECTED DIANE Last Admin: 03/20/19 02:38 Dose: 100 mls/hr Metronidazole 500 mg/ Premix 100 mls @ 100 mls/hr IV Q8H DIANE Lorazepam (Ativan) 0.5 mg IVPUSH Q3H PRN PRN Reason: Anxiety Last Admin: 03/20/19 02:40 Dose: 0.5 mg Metoprolol Tartrate (Lopressor) 5 mg IVPUSH Q4H PRN PRN Reason: Hypertension Ondansetron HCl (Zofran) 4 mg IVPUSH Q6H PRN PRN Reason: Nausea/Vomiting Sodium Chloride (Saline Flush) 10 ml FLUSH ONETIME PRN PRN Reason: KEEP VEIN OPEN Last Admin: 03/19/19 22:58 Dose: 10 ml Assessment/Plan Comment:: Assessment * Small bowel obstruction with findings suspicious for enteritis on CT scan * CT of abdomen shows focal bowel wall thickening within a loop with distal small bowel involving the ileum. This shows enhancing wall with surrounding inflammatory change and most likely represents a focal area of enteritis. * Colonoscopy on March 31, 2019 reportedly showing colitis and polyps * History of Campylobacter recently treated with Zithromax 500 mg daily x3 days * Recheck CT and stool cultures negative last week for Abductor and lactoferrin * Currently having little drainage out of NG tube and positive flatus * Pulmonary hypertension with sleep apnea requiring CPAP * Hypertension Plan * Admit to medical floor * N.p.o. * NG tube to low intermittent suction * IV Lopressor for blood pressure greater than 180/105 and or heart rate greater than 110 * Consult surgery * Metronidazole 500 mg IV every 8 hours * IV pain medications * CBC, CMP, magnesium in the morning * VTE prophylaxis with SCDs * CODE STATUS: Full code * Length of stay 2 to 3 days - Mortality Measure Prognosis:: Good
[2019-03-20] MEDS: Phenol 1.4% Oral Spray 177 ML Bottle MUCMEM PRN ×3 (11:04→23:55)
--- NOTE | 2019-03-20 20:06 | PCM.CONS ---
H&P History of Present Illness - General Date of Service: 03/20/19 Admit Problem/Dx: Admission Diagnosis/Problem Admission Diagnosis/Problem Small bowel obstruction Source of Information: Patient History Limitations: Reports: No Limitations - History of Present Illness Initial Comments - Free Text/Narative: Patient has left sided abdominal pain for 3 months. Pain is sharp, intermittent , last for 2-3 days at a time and resolves, associated with nausea and vomiting at times. No definite fevers, or chills. Weight is stable. patient has hx of open cholecystectomy and appendectomy and tubal ligation. She has acute onset of abdominal pain 2 days ago associated with nausea and vomiting and presented to the ED. WOrk up revealed inflamed distal small bowel causing mild partial sbo. Left sided colon is unremarkable. Onset of Symptoms: Reports: Sudden, Gradual Duration of Symptoms: Reports: Day(s):, Getting Worse Location: Reports: Abdomen Severity: Severe Improves with: Reports: None Worsens with: Reports: None Abdomen Pain Score (Numeric/FACES): 8 Middle Back Pain Score (Numeric/FACES): 8 - Related Data Allergies/Adverse Reactions: Allergies Allergy/AdvReac Type Severity Reaction Status Date / Time acetaminophen [From Percocet] AdvReac Hallucinati Verified 03/20/19 01:54 ons codeine AdvReac Disorientat Verified 03/20/19 01:54 ion oxycodone HCl [From Percocet] AdvReac Hallucinati Verified 03/20/19 01:54 ons wheat,eggs, dairy AdvReac Related to Uncoded 12/19/18 01:30 sinuses, not GI tract. Pt. consumes these foods. Home Medications: Home Meds Calcium Carb/Vitamin D3/Vit K1 [Viactiv Soft Chew] 1 tab PO BEDTIME 11/07/13 [ History] Calcium Polycarbophil [Fibercon] 1,250 mg PO DAILY 11/07/13 [History] Ezetimibe [Zetia] 10 mg PO BEDTIME 11/07/13 [History] Fluticasone Propionate [Flonase] 2 sprays NASBOTH DAILY 11/07/13 [History] Multivitamin [Daily Multiple Vitamin] 1 tab PO DAILY 11/07/13 [History] NIFEdipine [Procardia XL] 30 mg PO BEDTIME 11/07/13 [History] Omeprazole [priLOSEC OTC] 20 mg PO DAILY 11/07/13 [History] Oxybutynin Chloride [Ditropan Xl] 10 mg PO DAILY 11/07/13 [History] Simvastatin [Zocor] 20 mg PO BEDTIME 11/07/13 [History] atenoloL [Atenolol] 50 mg PO QAM 11/07/13 [History] busPIRone [Buspar] 10 mg PO BID 11/07/13 [History] Aspirin [Halfprin] 81 mg PO DAILY 12/08/14 [History] Estrogens, Conjugated [Premarin Vaginal Crm] 0.5 gm VAG ASDIRECTED 12/08/14 [ History] [place]-3/DHA/Epa/Fish Oil [Fish Oil Dr 500 mg Softgel] 1,000 mg PO DAILY [History] Acetaminophen [Tylenol] 1,000 mg PO Q4H PRN 06/14/17 [History] Vit A/Vit C/Vit E/Zinc/Copper [Preservision] 1 tab PO BID 06/14/17 [History] atenoloL [Atenolol] 25 mg PO QPM 06/14/17 [History] ALPRAZolam [Alprazolam] 0.25 mg PO Q8H PRN 03/20/19 [History] Past Medical History Cardiovascular History: Reports: Heart Murmur, High Cholesterol, Hypertension, Pulmonary Hypertension, Other (See Below) Other Cardiovascular History: cardiomegaly Respiratory History: Reports: Sleep Apnea Other Respiratory History: CPAP Gastrointestinal History: Reports: Diverticulosis, Gastritis, GERD, Hiatal Hernia, Other (See Below) Other Gastrointestinal History: Hx of cdiff. Genitourinary History: Reports: Renal Calculus Other Genitourinary History: 1 stone in each kidney as they were unable to remove them Other OB/BYN History: tubal ligation 1986; hysterectomy 1990 Musculoskeletal History: Reports: Back Pain, Chronic Psychiatric History: Reports: Anxiety Oncologic (Cancer) History: Reports: Malignant Melanoma Dermatologic History: Reports: Melanoma Other Dermatologic History: melanoma 10 years ago. surgery to melonoma to her back/shoulder; no further treatment - Infectious Disease History Infectious Disease History: Reports: C-Difficile - Past Surgical History HEENT Surgical History: Reports: Adenoidectomy, Cataract Surgery, Naso-Sinus Surgery, Tonsillectomy GI Surgical History: Reports: Appendectomy, Cholecystectomy, Colonoscopy, EGD Female Surgical History: Reports: Hysterectomy, Lithotripsy/ESWL, Tubal Ligation Neurological Surgical History: Reports: Lumbar Spine Musculoskeletal Surgical History: Reports: Carpal Tunnel Other Musculoskeletal Surgeries/Procedures:: back surgery x 1 Oncologic Surgical History: Reports: Other (See Below) Other Oncologic Surgeries/Procedures: removed melanoma Social & Family History - Family History Family Medical History: Noncontributory Cardiac: Reports: Heart Failure Musculoskeletal: Reports: Arthritis, Osteoarthritis Endocrine/Metabolic: Reports: Diabetes, Type I Oncologic: Reports: Cervix, Pancreatic - Tobacco Use Smoking Status *Q: Never Smoker Second Hand Smoke Exposure: No - Caffeine Use Caffeine Use: Reports: Coffee, Soda, Tea Other Caffeine Use: 1-2 cup - Recreational Drug Use Recreational Drug Use: No - Living Situation & Occupation Living situation: Reports: , with Spouse Occupation: Retired H&P Review of Systems - Review of Systems: Review Of Systems: See Below General: Reports: No Symptoms, Weakness, Decreased Appetite HEENT: Reports: No Symptoms Pulmonary: Reports: No Symptoms Cardiovascular: Reports: No Symptoms Gastrointestinal: Reports: Abdominal Pain Genitourinary: Reports: No Symptoms Musculoskeletal: Reports: No Symptoms Exam - Exam Exam: See Below - Vital Signs Vital Signs: Last Vital Signs Temp 98.1 F 03/20/19 16:20 Pulse 72 03/20/19 16:20 Resp 18 03/20/19 16:20 BP 133/85 03/20/19 16:20 Pulse Ox 95 03/20/19 16:20 Weight: 69.672 kg - Exam General: Alert, Oriented, Cooperative, Mild Distress HEENT: Conjunctiva Clear Neck: Supple, Trachea Midline Lungs: Clear to Auscultation, Normal Respiratory Effort Cardiovascular: Regular Rate, Regular Rhythm, Normal S1, Normal S2 GI/Abdominal Exam: Normal Bowel Sounds, Tender (mid abdomen, left lower quadrant , left inguinal area) - Patient Data Lab Results Last 24 hrs: Laboratory Results - last 24 hr 03/19/19 03/19/19 03/20/19 Range/Units 21:05 21:05 06:14 WBC 14.59 H (3.98-10.04) K/mm3 RBC 5.55 H (3.98-5.22) M/mm3 Hgb 14.7 D (11.2-15.7) gm/dl Hct 46.0 H (34.1-44.9) % MCV 82.9 D (79.4-94.8) fl MCH 26.5 (25.6-32.2) pg MCHC 32.0 L (32.2-35.5) g/dl RDW Std Deviation 44.8 (36.4-46.3) fL Plt Count 318 D (182-369) K/mm3 MPV 9.5 (9.4-12.3) fl Neut % (Auto) (34.0-71.1) % Lymph % (Auto) (19.3-51.7) % Kidder % (Auto) (4.7-12.5) % Eos % (Auto) (0.7-5.8) Baso % (Auto) (0.1-1.2) % Neut # (Auto) (1.56-6.13) K/mm3 Lymph # (Auto) (1.18-3.74) K/mm3 Kidder # (Auto) (0.24-0.36) K/mm3 Eos # (Auto) (0.04-0.36) K/mm3 Baso # (Auto) (0.01-0.08) K/mm3 Neutrophils % (Manual) 85 H (40-60) % Band Neutrophils % 0 (0-10) % Lymphocytes % (Manual) 10 L (20-40) % Atypical Lymphs % 0 % Monocytes % (Manual) 2 (2-10) % Eosinophils % (Manual) 3 (0.7-5.8) % Basophils % (Manual) 0 L (0.1-1.2) Platelet Estimate Adequate Anisocytosis 1+ slight RBC Morph Comment Not Reportable Sodium 141 139 (136-145) mEq/L Potassium 4.3 4.0 (3.5-5.1) mEq/L Chloride 102 103 (98-107) mEq/L Carbon Dioxide 26 24 (21-32) mEq/L Anion Gap 17.3 H 16.0 H (5-15) BUN 20 H 18 (7-18) mg/dL Creatinine 1.2 H 1.0 (0.55-1.02) mg/dL Est Cr Clr Drug Dosing 33.39 40.07 mL/min Estimated GFR (MDRD) 45 55 (>60) mL/min BUN/Creatinine Ratio 16.7 18.0 (14-18) Glucose 143 H 108 (80-115) mg/dL Calcium 10.6 H D 9.0 D (8.5-10.1) mg/dL Iron (50-170) ug/dL TIBC (100-400) ug/dL % Saturation (20-55) % Transferrin (202-364) mg/dL Total Bilirubin 0.5 (0.2-1.0) mg/dL AST 28 (15-37) U/L ALT 40 (14-59) U/L Alkaline Phosphatase 106 (46-116) U/L Total Protein 8.5 H (6.4-8.2) g/dl Albumin 4.5 (3.4-5.0) g/dl Globulin 4.0 gm/dL Albumin/Globulin Ratio 1.1 (1-2) Vitamin B12 (193-986) pg/ml Vitamin D 25-Hydroxy (30.0-100.0) ng/ml 03/20/19 03/20/19 03/20/19 Range/Units 06:14 06:14 06:14 WBC 10.28 H (3.98-10.04) K/mm3 RBC 4.38 (3.98-5.22) M/mm3 Hgb 11.7 D (11.2-15.7) gm/dl Hct 37.0 (34.1-44.9) % MCV 84.5 (79.4-94.8) fl MCH 26.7 (25.6-32.2) pg MCHC 31.6 L (32.2-35.5) g/dl RDW Std Deviation 45.4 (36.4-46.3) fL Plt Count 246 (182-369) K/mm3 MPV 9.4 (9.4-12.3) fl Neut % (Auto) 80.6 H (34.0-71.1) % Lymph % (Auto) 12.5 L (19.3-51.7) % Kidder % (Auto) 6.6 (4.7-12.5) % Eos % (Auto) 0.1 L (0.7-5.8) Baso % (Auto) 0.1 (0.1-1.2) % Neut # (Auto) 8.28 H (1.56-6.13) K/mm3 Lymph # (Auto) 1.29 (1.18-3.74) K/mm3 Kidder # (Auto) 0.68 H (0.24-0.36) K/mm3 Eos # (Auto) 0.01 L (0.04-0.36) K/mm3 Baso # (Auto) 0.01 (0.01-0.08) K/mm3 Neutrophils % (Manual) (40-60) % Band Neutrophils % (0-10) % Lymphocytes % (Manual) (20-40) % Atypical Lymphs % % Monocytes % (Manual) (2-10) % Eosinophils % (Manual) (0.7-5.8) % Basophils % (Manual) (0.1-1.2) Platelet Estimate Anisocytosis RBC Morph Comment Sodium (136-145) mEq/L Potassium (3.5-5.1) mEq/L Chloride (98-107) mEq/L Carbon Dioxide (21-32) mEq/L Anion Gap (5-15) BUN (7-18) mg/dL Creatinine (0.55-1.02) mg/dL Est Cr Clr Drug Dosing mL/min Estimated GFR (MDRD) (>60) mL/min BUN/Creatinine Ratio (14-18) Glucose (80-115) mg/dL Calcium (8.5-10.1) mg/dL Iron 31 L (50-170) ug/dL TIBC 350 (100-400) ug/dL % Saturation 9 L (20-55) % Transferrin 280 (202-364) mg/dL Total Bilirubin (0.2-1.0) mg/dL AST (15-37) U/L ALT (14-59) U/L Alkaline Phosphatase (46-116) U/L Total Protein (6.4-8.2) g/dl Albumin (3.4-5.0) g/dl Globulin gm/dL Albumin/Globulin Ratio (1-2) Vitamin B12 589 (193-986) pg/ml Vitamin D 25-Hydroxy (30.0-100.0) ng/ml 03/20/19 Range/Units 06:14 WBC (3.98-10.04) K/mm3 RBC (3.98-5.22) M/mm3 Hgb (11.2-15.7) gm/dl Hct (34.1-44.9) % MCV (79.4-94.8) fl MCH (25.6-32.2) pg MCHC (32.2-35.5) g/dl RDW Std Deviation (36.4-46.3) fL Plt Count (182-369) K/mm3 MPV (9.4-12.3) fl Neut % (Auto) (34.0-71.1) % Lymph % (Auto) (19.3-51.7) % Kidder % (Auto) (4.7-12.5) % Eos % (Auto) (0.7-5.8) Baso % (Auto) (0.1-1.2) % Neut # (Auto) (1.56-6.13) K/mm3 Lymph # (Auto) (1.18-3.74) K/mm3 Kidder # (Auto) (0.24-0.36) K/mm3 Eos # (Auto) (0.04-0.36) K/mm3 Baso # (Auto) (0.01-0.08) K/mm3 Neutrophils % (Manual) (40-60) % Band Neutrophils % (0-10) % Lymphocytes % (Manual) (20-40) % Atypical Lymphs % % Monocytes % (Manual) (2-10) % Eosinophils % (Manual) (0.7-5.8) % Basophils % (Manual) (0.1-1.2) Platelet Estimate Anisocytosis RBC Morph Comment Sodium (136-145) mEq/L Potassium (3.5-5.1) mEq/L Chloride (98-107) mEq/L Carbon Dioxide (21-32) mEq/L Anion Gap (5-15) BUN (7-18) mg/dL Creatinine (0.55-1.02) mg/dL Est Cr Clr Drug Dosing mL/min Estimated GFR (MDRD) (>60) mL/min BUN/Creatinine Ratio (14-18) Glucose (80-115) mg/dL Calcium (8.5-10.1) mg/dL Iron (50-170) ug/dL TIBC (100-400) ug/dL % Saturation (20-55) % Transferrin (202-364) mg/dL Total Bilirubin (0.2-1.0) mg/dL AST (15-37) U/L ALT (14-59) U/L Alkaline Phosphatase (46-116) U/L Total Protein (6.4-8.2) g/dl Albumin (3.4-5.0) g/dl Globulin gm/dL Albumin/Globulin Ratio (1-2) Vitamin B12 (193-986) pg/ml Vitamin D 25-Hydroxy 67.7 (30.0-100.0) ng/ml Result Diagrams: 03/20/19 06:14 03/20/19 06:14 Sepsis Event Note - Evaluation Sepsis Screening Result: No Definite Risk - Focused Exam Vital Signs: Vital Signs Temp Pulse Resp BP Pulse Ox Pulse Ox Pulse Ox 03/20/19 16:20 98.1 F 72 18 133/85 95 03/20/19 12:06 98.2 F 75 18 133/74 95 03/20/19 10:03 98.1 F 71 20 125/95 H 95 03/20/19 09:30 93 L 03/20/19 09:04 93 L 03/20/19 08:42 96 Date Exam was Performed: 03/20/19 Time Exam was Performed: 19:58 Consult PN Assessment/Plan Procedures: Procedures AIRWAY INHALATION TREATMENT (03/05/15) ASSAY OF AMYLASE (12/08/14) ASSAY OF LIPASE (12/19/18) ASSAY OF MAGNESIUM (12/19/18) ASSAY OF PHOSPHORUS (12/19/18) BL SMEAR W/DIFF WBC COUNT (12/19/18) BLOOD CULTURE FOR BACTERIA (03/05/15) BREAST TOMOSYNTHESIS BI (07/18/18) C-REACTIVE PROTEIN (12/13/16) CHEST X-RAY 1 VIEW FRONTAL (12/08/14) CHEST X-RAY 2VW FRONTAL&LATL (03/05/15) COMP SCREEN MAMMOGRAM ADD-ON (07/02/15) COMPLETE CBC AUTOMATED (12/19/18) COMPLETE CBC W/AUTO DIFF WBC (12/13/16) COMPREHEN METABOLIC PANEL (12/19/18) CT ABD & PELV W/CONTRAST (12/19/18) EMERGENCY DEPT VISIT (12/19/18) EMERGENCY DEPT VISIT (12/13/16) EMERGENCY DEPT VISIT (03/05/15) EMERGENCY DEPT VISIT (10/10/15) EVALUATE PT USE OF INHALER (03/05/15) HYDRATE IV INFUSION ADD-ON (12/19/18) MAMMOGRAM SCREENING (06/05/13) MEASURE BLOOD OXYGEN LEVEL (03/05/15) METABOLIC PANEL TOTAL CA (12/19/18) MICROBE SUSCEPTIBLE EVELINE (03/05/15) POLYSOM 6/> YRS 4/> JAZMIN (07/25/17) PPSV23 VACC 2 YRS+ SUBQ/IM (03/05/15) ROUTINE VENIPUNCTURE (12/19/18) SCR MAMMO BI INCL CAD (07/18/18) THER/PROPH/DIAG INJ IV PUSH (12/19/18) THER/PROPH/DIAG IV INF INIT (03/05/15) TX/PRO/DX INJ NEW DRUG ADDON (12/19/18) TX/PRO/DX INJ SAME DRUG AUTO ELECTRICIAN (12/19/18) TX/PROPH/DG ADDL SEQ IV INF (03/05/15) URINALYSIS AUTO W/SCOPE (12/19/18) URINE BACTERIA CULTURE (03/05/15) URINE CULTURE/COLONY COUNT (03/05/15) US EXAM ABDOM COMPLETE (12/19/18) X-RAY EXAM CHEST 2 VIEWS (12/19/18) X-RAY EXAM OF ABDOMEN (12/13/16) X-RAY EXAM OF ABDOMEN (12/08/14) X-RAY XM ESOPHAGUS 1CNTRST (03/08/18) XCAPSL CTRC RMVL W/O ECP (06/15/17) Problem List Initiated/Reviewed/Updated: No Plan: Patient has mild SBO due to inflamed distal ileum. there is small amount of free fluid. descending and sigmoid colon appear unremarkable. Has improved well after bowel rest. Now passing flatus and having BMs. - Clamp NGT. If patient has no nausea or vomiting in 6 hrs, can start CLD. If has any nausea, vomiting then restart NGT to suction. I discussed with the patient that if non-operative management fails, then we will consider explorative surgery.
[2019-03-21] MEDS: metroNIDAZOLE/Normal Saline 500 MG in Premix Bag 1 BAG IV SCH ×3 (00:58→17:02)
[2019-03-21] MEDS: Lactated Ringers 1,000 ML IV SCH (02:13)
--- NOTE | 2019-03-21 08:54 | PCM.PN ---
- General Info Date of Service: 03/21/19 Admission Dx/Problem (Free Text): Admission Diagnosis/Problem Admission Diagnosis/Problem Small bowel obstruction Functional Status: Reports: Pain Controlled, Tolerating Diet, Ambulating, Urinating. Denies: New Symptoms - Review of Systems General: Reports: No Symptoms. Denies: Fever, Weakness, Fatigue, Malaise, Chills HEENT: Reports: No Symptoms. Denies: Headaches, Sore Throat Pulmonary: Reports: No Symptoms. Denies: Shortness of Breath, Cough, Sputum, Wheezing Cardiovascular: Reports: No Symptoms. Denies: Chest Pain, Palpitations, Dyspnea on Exertion Gastrointestinal: Reports: Abdominal Pain (LLQ>LUQ), Diarrhea. Denies: Constipation, Nausea, Vomiting Genitourinary: Reports: No Symptoms. Denies: Pain Musculoskeletal: Reports: No Symptoms Skin: Reports: No Symptoms Neurological: Reports: No Symptoms. Denies: Confusion, Difficulty Walking, Gait Disturbance Psychiatric: Reports: No Symptoms - Patient Data Vitals - Most Recent: Last Vital Signs Temp 98.2 F 03/21/19 04:33 Pulse 70 03/21/19 04:33 Resp 12 03/21/19 04:33 BP 110/55 L 03/21/19 04:33 Pulse Ox 97 03/21/19 04:33 Weight - Most Recent: 154 lb 9.6 oz I&O - Last 24 Hours: Intake & Output 03/20/19 03/21/19 03/21/19 22:59 06:59 14:59 Intake Total 1575 1200 Output Total 525 700 Balance 1050 500 Lab Results Last 24 Hours: Laboratory Results - last 24 hr 03/20/19 03/20/19 03/20/19 Range/Units 06:14 06:14 06:14 WBC (3.98-10.04) K/mm3 RBC (3.98-5.22) M/mm3 Hgb (11.2-15.7) gm/dl Hct (34.1-44.9) % MCV (79.4-94.8) fl MCH (25.6-32.2) pg MCHC (32.2-35.5) g/dl RDW Std Deviation (36.4-46.3) fL Plt Count (182-369) K/mm3 MPV (9.4-12.3) fl Neut % (Auto) (34.0-71.1) % Lymph % (Auto) (19.3-51.7) % [place] % (Auto) (4.7-12.5) % Eos % (Auto) (0.7-5.8) Baso % (Auto) (0.1-1.2) % Neut # (Auto) (1.56-6.13) K/mm3 Lymph # (Auto) (1.18-3.74) K/mm3 [place] # (Auto) (0.24-0.36) K/mm3 Eos # (Auto) (0.04-0.36) K/mm3 Baso # (Auto) (0.01-0.08) K/mm3 Sodium (136-145) mEq/L Potassium (3.5-5.1) mEq/L Chloride (98-107) mEq/L Carbon Dioxide (21-32) mEq/L Anion Gap (5-15) BUN (7-18) mg/dL Creatinine (0.55-1.02) mg/dL Est Cr Clr Drug Dosing mL/min Estimated GFR (MDRD) (>60) mL/min BUN/Creatinine Ratio (14-18) Glucose (80-115) mg/dL Calcium (8.5-10.1) mg/dL Magnesium (1.8-2.4) mg/dl Iron 31 L (50-170) ug/dL TIBC 350 (100-400) ug/dL % Saturation 9 L (20-55) % Transferrin 280 (202-364) mg/dL Total Bilirubin (0.2-1.0) mg/dL AST (15-37) U/L ALT (14-59) U/L Alkaline Phosphatase (46-116) U/L C-Reactive Protein (<1.0) mg/dL Total Protein (6.4-8.2) g/dl Albumin (3.4-5.0) g/dl Globulin gm/dL Albumin/Globulin Ratio (1-2) Vitamin B12 589 (193-986) pg/ml Vitamin D 25-Hydroxy 67.7 (30.0-100.0) ng/ml 03/21/19 03/21/19 03/21/19 Range/Units 05:36 05:36 05:36 WBC 6.04 (3.98-10.04) K/mm3 RBC 4.31 (3.98-5.22) M/mm3 Hgb 11.5 (11.2-15.7) gm/dl Hct 36.9 (34.1-44.9) % MCV 85.6 (79.4-94.8) fl MCH 26.7 (25.6-32.2) pg MCHC 31.2 L (32.2-35.5) g/dl RDW Std Deviation 47.2 H (36.4-46.3) fL Plt Count 215 (182-369) K/mm3 MPV 9.4 (9.4-12.3) fl Neut % (Auto) 63.2 (34.0-71.1) % Lymph % (Auto) 22.8 (19.3-51.7) % [place] % (Auto) 10.9 (4.7-12.5) % Eos % (Auto) 2.8 (0.7-5.8) Baso % (Auto) 0.0 L (0.1-1.2) % Neut # (Auto) 3.81 (1.56-6.13) K/mm3 Lymph # (Auto) 1.38 (1.18-3.74) K/mm3 [place] # (Auto) 0.66 H (0.24-0.36) K/mm3 Eos # (Auto) 0.17 (0.04-0.36) K/mm3 Baso # (Auto) 0.00 L (0.01-0.08) K/mm3 Sodium 141 (136-145) mEq/L Potassium 3.7 (3.5-5.1) mEq/L Chloride 105 (98-107) mEq/L Carbon Dioxide 27 (21-32) mEq/L Anion Gap 12.7 (5-15) BUN 11 (7-18) mg/dL Creatinine 1.0 (0.55-1.02) mg/dL Est Cr Clr Drug Dosing 40.07 mL/min Estimated GFR (MDRD) 55 (>60) mL/min BUN/Creatinine Ratio 11.0 L (14-18) Glucose 90 (80-115) mg/dL Calcium 8.6 (8.5-10.1) mg/dL Magnesium 1.8 (1.8-2.4) mg/dl Iron (50-170) ug/dL TIBC (100-400) ug/dL % Saturation (20-55) % Transferrin (202-364) mg/dL Total Bilirubin 0.4 (0.2-1.0) mg/dL AST 24 (15-37) U/L ALT 26 (14-59) U/L Alkaline Phosphatase 67 (46-116) U/L C-Reactive Protein 0.5 (<1.0) mg/dL Total Protein 6.1 L (6.4-8.2) g/dl Albumin 3.2 L (3.4-5.0) g/dl Globulin 2.9 gm/dL Albumin/Globulin Ratio 1.1 (1-2) Vitamin B12 (193-986) pg/ml Vitamin D 25-Hydroxy (30.0-100.0) ng/ml Med Orders - Current: Current Medications Hydromorphone HCl (Dilaudid) 0.5 mg IVPUSH Q1H PRN PRN Reason: Pain Lactated Ringer's (Ringers, Lactated) 1,000 mls @ 100 mls/hr IV ASDIRECTED [facility] Last Admin: 03/21/19 02:13 Dose: 100 mls/hr Metronidazole 500 mg/ Premix 100 mls @ 100 mls/hr IV Q8H [facility] Last Admin: 03/21/19 08:30 Dose: 100 mls/hr Lorazepam (Ativan) 0.5 mg IVPUSH Q3H PRN PRN Reason: Anxiety Last Admin: 03/20/19 22:10 Dose: 0.5 mg Metoprolol Tartrate (Lopressor) 5 mg IVPUSH Q4H PRN PRN Reason: Hypertension Ondansetron HCl (Zofran) 4 mg IVPUSH Q6H PRN PRN Reason: Nausea/Vomiting Phenol/Menthol (Chloraseptic Throat [place]) 1 ml MUCMEM Q2H PRN PRN Reason: Sore Throat Last Admin: 03/20/19 23:55 Dose: 1 spray Sodium Chloride (Saline Flush) 10 ml FLUSH ONETIME PRN PRN Reason: KEEP VEIN OPEN Last Admin: 03/19/19 22:58 Dose: 10 ml Discontinued Medications Diatrizoate Meglum/Diatrizoate Sod (Gastrografin 37%) 60 ml PO ONETIME ONE Stop: 03/19/19 21:15 Last Admin: 03/19/19 22:58 Dose: 60 ml Hydromorphone HCl (Dilaudid) 0.5 mg IVPUSH ONETIME ONE Stop: 03/19/19 21:01 Last Admin: 03/19/19 21:16 Dose: 0.5 mg Sodium Chloride (Normal Saline) 1,000 mls @ 150 mls/hr IV ASDIRECTED DIANE Last Admin: 03/19/19 21:14 Dose: 150 mls/hr Sodium Chloride (Normal Saline) 1,000 mls @ 150 mls/hr IV ASDIRECTED DIANE Iopamidol (Isovue-300 (61%)) 100 ml IVPUSH ONETIME ONE Stop: 03/19/19 21:15 Last Admin: 03/19/19 22:58 Dose: 100 ml Lorazepam (Ativan) 0.5 mg IVPUSH ONETIME STA Stop: 03/19/19 21:01 Last Admin: 03/19/19 21:18 Dose: 0.5 mg Ondansetron HCl (Zofran) 4 mg IVPUSH ONETIME ONE Stop: 03/19/19 21:00 Last Admin: 03/19/19 21:13 Dose: 4 mg Ondansetron HCl (Zofran) 4 mg IVPUSH ONETIME ONE Stop: 03/19/19 21:01 Last Admin: 03/20/19 02:10 Dose: Not Given - Exam Quality Assessment: DVT Prophylaxis General: Alert, Oriented, Cooperative, No Acute Distress HEENT: Pupils Equal, Pupils Reactive, Mucous Membr. Moist/Nice Neck: Supple, Trachea Midline Lungs: Clear to Auscultation, Normal Respiratory Effort Cardiovascular: Regular Rate, Regular Rhythm GI/Abdominal Exam: Soft, No Distention, Tender (LLQ>LUQ), Abnormal Bowel Sounds (Hyperactive ) (Female) Exam: Deferred Back Exam: Normal Inspection, Full Range of Motion Extremities: Normal Inspection, Normal Range of Motion, Non-Tender, No Pedal Edema, Normal Capillary Refill Skin: Warm, Dry, Intact Neurological: No New Focal Deficit Psy/Mental Status: Alert, Normal Affect, Normal Mood Sepsis Event Note - Evaluation Sepsis Screening Result: No Definite Risk - Focused Exam Vital Signs: Vital Signs Temp Pulse Resp BP Pulse Ox 03/21/19 04:33 98.2 F 70 12 110/55 L 97 03/20/19 23:56 98.6 F 73 16 128/78 93 L Date Exam was Performed: 03/21/19 Time Exam was Performed: 11:41 - Problem List & Annotations (1) Anxiety SNOMED Code(s): 58233731 Code(s): F41.9 - ANXIETY DISORDER, UNSPECIFIED Status: Chronic Priority: Low Current Visit: No (2) Small bowel obstruction SNOMED Code(s): 587038362 Code(s): K56.609 - UNSP INTESTNL OBST, UNSP TO PARTIAL VERSUS COMPLETE OBST Status: Acute Priority: High Current Visit: Yes (3) Abdominal pain SNOMED Code(s): 15172123 Code(s): R10.9 - UNSPECIFIED ABDOMINAL PAIN Status: Acute Priority: High Current Visit: Yes (4) HTN, Essential hypertension SNOMED Code(s): 61802964 Code(s): I10 - ESSENTIAL (PRIMARY) HYPERTENSION Status: Chronic Priority : Low Current Visit: No (5) Hyperlipidemia SNOMED Code(s): 15708495 Code(s): E78.5 - HYPERLIPIDEMIA, UNSPECIFIED Status: Chronic Priority: Low Current Visit: No (6) Inflammatory bowel disease SNOMED Code(s): 10490635 Code(s): K63.89 - OTHER SPECIFIED DISEASES OF INTESTINE Status: Chronic Priority: Medium Current Visit: No (7) Nausea and vomiting in adult SNOMED Code(s): 36880448 Code(s): R11.2 - NAUSEA WITH VOMITING, UNSPECIFIED Status: Resolved Priority: High Current Visit: Yes (8) Pulmonary hypertension SNOMED Code(s): 59324285 Code(s): I27.20 - PULMONARY HYPERTENSION, UNSPECIFIED Status: Chronic Priority: Medium Current Visit: No (9) KIRILL on CPAP SNOMED Code(s): 09309829 Code(s): G47.33 - OBSTRUCTIVE SLEEP APNEA (ADULT) (PEDIATRIC); Z99.89 - DEPENDENCE ON OTHER ENABLING MACHINES AND DEVICES Status: Chronic Priority: Medium Current Visit: No - Problem List Review Problem List Initiated/Reviewed/Updated: Yes - Plan Plan:: Assessment * Small bowel obstruction with findings suspicious for enteritis on CT scan * CT of abdomen shows focal bowel wall thickening within a loop with distal small bowel involving the ileum. This shows enhancing wall with surrounding inflammatory change and most likely represents a focal area of enteritis. * Colonoscopy on March 31, 2019 reportedly showing colitis and polyps * History of Campylobacter recently treated with Zithromax 500 mg daily x3 days * Recheck CT and stool cultures negative last week for Abductor and lactoferrin * Currently having little drainage out of NG tube and positive flatus * Pulmonary hypertension with sleep apnea requiring CPAP * Hypertension Plan * Admit to medical floor * Advance diet as tolerated * Remove NG Tube * IV Lopressor for blood pressure greater than 180/105 and or heart rate greater than 110 * Consult surgery - Dr. Franco * Metronidazole 500 mg IV every 8 hours * IV pain medications * CBC, CMP, magnesium in the morning * VTE prophylaxis with SCDs * CODE STATUS: Full code * Length of stay: Likely discharge tomorrow pending continued improvement
--- NOTE | 2019-03-21 12:44 | PCM.SURGPN ---
- General Info Date of Service: 03/21/19 Post-Op Diagnosis: Bowel obstruction Functional Status: Reports: Pain Controlled, Tolerating Diet - Review of Systems General: Reports: No Symptoms HEENT: Reports: No Symptoms Pulmonary: Reports: No Symptoms Cardiovascular: Reports: No Symptoms Gastrointestinal: Reports: No Symptoms Genitourinary: Reports: No Symptoms Musculoskeletal: Reports: No Symptoms Skin: Reports: No Symptoms - Patient Data Vitals - Most Recent: Last Vital Signs Temp 97.7 F 03/21/19 08:36 Pulse 70 03/21/19 08:36 Resp 16 03/21/19 08:36 BP 107/86 03/21/19 08:36 Pulse Ox 96 03/21/19 08:36 Weight - Most Recent: 70.125 kg I&O - Last 24 Hours: Intake & Output 03/20/19 03/21/19 03/21/19 22:59 06:59 14:59 Intake Total 1575 1200 380 Output Total 525 700 Balance 1050 500 380 Lab Results Last 24 Hrs: Laboratory Results - last 24 hr 03/21/19 03/21/19 03/21/19 Range/Units 05:36 05:36 05:36 WBC 6.04 (3.98-10.04) K/mm3 RBC 4.31 (3.98-5.22) M/mm3 Hgb 11.5 (11.2-15.7) gm/dl Hct 36.9 (34.1-44.9) % MCV 85.6 (79.4-94.8) fl MCH 26.7 (25.6-32.2) pg MCHC 31.2 L (32.2-35.5) g/dl RDW Std Deviation 47.2 H (36.4-46.3) fL Plt Count 215 (182-369) K/mm3 MPV 9.4 (9.4-12.3) fl Neut % (Auto) 63.2 (34.0-71.1) % Lymph % (Auto) 22.8 (19.3-51.7) % [place] % (Auto) 10.9 (4.7-12.5) % Eos % (Auto) 2.8 (0.7-5.8) Baso % (Auto) 0.0 L (0.1-1.2) % Neut # (Auto) 3.81 (1.56-6.13) K/mm3 Lymph # (Auto) 1.38 (1.18-3.74) K/mm3 [place] # (Auto) 0.66 H (0.24-0.36) K/mm3 Eos # (Auto) 0.17 (0.04-0.36) K/mm3 Baso # (Auto) 0.00 L (0.01-0.08) K/mm3 Sodium 141 (136-145) mEq/L Potassium 3.7 (3.5-5.1) mEq/L Chloride 105 (98-107) mEq/L Carbon Dioxide 27 (21-32) mEq/L Anion Gap 12.7 (5-15) BUN 11 (7-18) mg/dL Creatinine 1.0 (0.55-1.02) mg/dL Est Cr Clr Drug Dosing 40.07 mL/min Estimated GFR (MDRD) 55 (>60) mL/min BUN/Creatinine Ratio 11.0 L (14-18) Glucose 90 (80-115) mg/dL Calcium 8.6 (8.5-10.1) mg/dL Magnesium 1.8 (1.8-2.4) mg/dl Total Bilirubin 0.4 (0.2-1.0) mg/dL AST 24 (15-37) U/L ALT 26 (14-59) U/L Alkaline Phosphatase 67 (46-116) U/L C-Reactive Protein 0.5 (<1.0) mg/dL Total Protein 6.1 L (6.4-8.2) g/dl Albumin 3.2 L (3.4-5.0) g/dl Globulin 2.9 gm/dL Albumin/Globulin Ratio 1.1 (1-2) Med Orders - Current: Current Medications Hydromorphone HCl (Dilaudid) 0.5 mg IVPUSH Q1H PRN PRN Reason: Pain Lactated Ringer's (Ringers, Lactated) 1,000 mls @ 100 mls/hr IV ASDIRECTED PENDING SALE TO [facility] Last Admin: 03/21/19 02:13 Dose: 100 mls/hr Metronidazole 500 mg/ Premix 100 mls @ 100 mls/hr IV Q8H PENDING SALE TO [facility] Last Admin: 03/21/19 08:30 Dose: 100 mls/hr Lorazepam (Ativan) 0.5 mg IVPUSH Q3H PRN PRN Reason: Anxiety Last Admin: 03/20/19 22:10 Dose: 0.5 mg Metoprolol Tartrate (Lopressor) 5 mg IVPUSH Q4H PRN PRN Reason: Hypertension Ondansetron HCl (Zofran) 4 mg IVPUSH Q6H PRN PRN Reason: Nausea/Vomiting Phenol/Menthol (Chloraseptic Throat [place]) 1 ml MUCMEM Q2H PRN PRN Reason: Sore Throat Last Admin: 03/20/19 23:55 Dose: 1 spray Sodium Chloride (Saline Flush) 10 ml FLUSH ONETIME PRN PRN Reason: KEEP VEIN OPEN Last Admin: 03/19/19 22:58 Dose: 10 ml Discontinued Medications Diatrizoate Meglum/Diatrizoate Sod (Gastrografin 37%) 60 ml PO ONETIME ONE Stop: 03/19/19 21:15 Last Admin: 03/19/19 22:58 Dose: 60 ml Hydromorphone HCl (Dilaudid) 0.5 mg IVPUSH ONETIME ONE Stop: 03/19/19 21:01 Last Admin: 03/19/19 21:16 Dose: 0.5 mg Sodium Chloride (Normal Saline) 1,000 mls @ 150 mls/hr IV ASDIRECTED [facility] Last Admin: 03/19/19 21:14 Dose: 150 mls/hr Sodium Chloride (Normal Saline) 1,000 mls @ 150 mls/hr IV ASDIRECTED [facility] Iopamidol (Isovue-300 (61%)) 100 ml IVPUSH ONETIME ONE Stop: 03/19/19 21:15 Last Admin: 03/19/19 22:58 Dose: 100 ml Lorazepam (Ativan) 0.5 mg IVPUSH ONETIME STA Stop: 03/19/19 21:01 Last Admin: 03/19/19 21:18 Dose: 0.5 mg Ondansetron HCl (Zofran) 4 mg IVPUSH ONETIME ONE Stop: 03/19/19 21:00 Last Admin: 03/19/19 21:13 Dose: 4 mg Ondansetron HCl (Zofran) 4 mg IVPUSH ONETIME ONE Stop: 03/19/19 21:01 Last Admin: 03/20/19 02:10 Dose: Not Given - Exam General: Alert, Oriented, Cooperative, No Acute Distress Lungs: Clear to Auscultation, Normal Respiratory Effort Cardiovascular: Regular Rate, Regular Rhythm, No Murmurs GI/Abdominal Exam: Normal Bowel Sounds, Soft, Tender (LLQ) Sepsis Event Note - Evaluation Sepsis Screening Result: No Definite Risk - Focused Exam Vital Signs: Vital Signs Temp Pulse Resp BP Pulse Ox 03/21/19 08:36 97.7 F 70 16 107/86 96 03/21/19 04:33 98.2 F 70 12 110/55 L 97 Date Exam was Performed: 03/21/19 Time Exam was Performed: 12:41 - Problem List Review Problem List Initiated/Reviewed/Updated: No - My Orders Last 24 Hours: Active Orders 24 hr Category Date Time Status Notify Provider Consults [RC] ASDIRECTED Care 03/20/19 17:01 Active Consult to Physician [CONS] Routine Cons 03/20/19 17:00 Active Full Liquid Diet [DIET] Diet 03/21/19 Lunch Active Medication Orders Hydromorphone HCl (Dilaudid) 0.5 mg IVPUSH Q1H PRN PRN Reason: Pain Lactated Ringer's (Ringers, Lactated) 1,000 mls @ 100 mls/hr IV ASDIRECTED PENDING SALE TO [facility] Last Admin: 03/21/19 02:13 Dose: 100 mls/hr Infusion: 03/20/19 23:37 Dose: 100 mls/hr Admin: 03/20/19 13:37 Dose: 100 mls/hr Infusion: 03/20/19 12:38 Dose: 100 mls/hr Admin: 03/20/19 02:38 Dose: 100 mls/hr Metronidazole 500 mg/ Premix 100 mls @ 100 mls/hr IV Q8H PENDING SALE TO [facility] Last Admin: 03/21/19 08:30 Dose: 100 mls/hr Infusion: 03/21/19 01:58 Dose: 100 mls/hr Admin: 03/21/19 00:58 Dose: 100 mls/hr Infusion: 03/20/19 17:30 Dose: 100 mls/hr Admin: 03/20/19 16:30 Dose: 100 mls/hr Infusion: 03/20/19 10:58 Dose: 100 mls/hr Admin: 03/20/19 09:58 Dose: 100 mls/hr Lorazepam (Ativan) 0.5 mg IVPUSH Q3H PRN PRN Reason: Anxiety Last Admin: 03/20/19 22:10 Dose: 0.5 mg Admin: 03/20/19 02:40 Dose: 0.5 mg Metoprolol Tartrate (Lopressor) 5 mg IVPUSH Q4H PRN PRN Reason: Hypertension Ondansetron HCl (Zofran) 4 mg IVPUSH Q6H PRN PRN Reason: Nausea/Vomiting Phenol/Menthol (Chloraseptic Throat [place]) 1 ml MUCMEM Q2H PRN PRN Reason: Sore Throat Last Admin: 03/20/19 23:55 Dose: 1 spray Admin: 03/20/19 16:17 Dose: 1 spray Admin: 03/20/19 11:04 Dose: 1 spray Sodium Chloride (Saline Flush) 10 ml FLUSH ONETIME PRN PRN Reason: KEEP VEIN OPEN Last Admin: 03/19/19 22:58 Dose: 10 ml - Plan Plan (Free Text/Narrative):: HD2 for nausea, vomiting with CT scan showing distal ileal inflammation causing partial bowel obstruction. Patient's abdomen is tender in the LLQ and midabdomen. Patient has an episode of diarrhea earlier today and NGT has been clamped for 10 hrs without nausea or vomiting. Patient is also tolerating sips of clears. Plan will be to remove the NGT later today and advance diet as tolerated.
[2019-03-21] MEDS: Pantoprazole 40 MG Vial IVPUSH SCH (17:48)
[2019-03-21] MEDS: LORazepam 2 MG/ML SDV IVPUSH PRN (22:27)
[2019-03-22] MEDS: metroNIDAZOLE/Normal Saline 500 MG in Premix Bag 1 BAG IV SCH ×3 (01:12→16:50)
--- NOTE | 2019-03-22 07:31 | PCM.SURGPN ---
- General Info Date of Service: 03/22/19 Post-Op Diagnosis: Partial bowel obstruction Functional Status: Reports: Pain Controlled, Ambulating, Urinating - Review of Systems General: Reports: No Symptoms HEENT: Reports: No Symptoms Pulmonary: Reports: No Symptoms Cardiovascular: Reports: No Symptoms Gastrointestinal: Reports: Abdominal Pain Genitourinary: Reports: No Symptoms - Patient Data Vitals - Most Recent: Last Vital Signs Temp 98.1 F 03/22/19 05:50 Pulse 76 03/22/19 05:50 Resp 16 03/22/19 05:50 BP 123/82 03/22/19 05:50 Pulse Ox 95 03/22/19 05:50 Weight - Most Recent: 69.354 kg I&O - Last 24 Hours: Intake & Output 03/21/19 03/22/19 03/22/19 22:59 06:59 14:59 Intake Total 1817 900 Output Total 1600 1000 Balance 217 -100 Lab Results Last 24 Hrs: Laboratory Results - last 24 hr 03/21/19 03/21/19 03/22/19 Range/Units 05:36 05:36 05:25 WBC 4.30 (3.98-10.04) K/mm3 RBC 4.17 (3.98-5.22) M/mm3 Hgb 11.1 L (11.2-15.7) gm/dl Hct 35.2 (34.1-44.9) % MCV 84.4 (79.4-94.8) fl MCH 26.6 (25.6-32.2) pg MCHC 31.5 L (32.2-35.5) g/dl RDW Std Deviation 45.0 (36.4-46.3) fL Plt Count 210 (182-369) K/mm3 MPV 9.1 L (9.4-12.3) fl Neut % (Auto) 53.5 (34.0-71.1) % Lymph % (Auto) 30.7 (19.3-51.7) % [place] % (Auto) 12.1 (4.7-12.5) % Eos % (Auto) 3.5 (0.7-5.8) Baso % (Auto) 0.2 (0.1-1.2) % Neut # (Auto) 2.30 (1.56-6.13) K/mm3 Lymph # (Auto) 1.32 (1.18-3.74) K/mm3 [place] # (Auto) 0.52 H (0.24-0.36) K/mm3 Eos # (Auto) 0.15 (0.04-0.36) K/mm3 Baso # (Auto) 0.01 (0.01-0.08) K/mm3 Sodium 141 (136-145) mEq/L Potassium 3.7 (3.5-5.1) mEq/L Chloride 105 (98-107) mEq/L Carbon Dioxide 27 (21-32) mEq/L Anion Gap 12.7 (5-15) BUN 11 (7-18) mg/dL Creatinine 1.0 (0.55-1.02) mg/dL Est Cr Clr Drug Dosing 40.07 mL/min Estimated GFR (MDRD) 55 (>60) mL/min BUN/Creatinine Ratio 11.0 L (14-18) Glucose 90 (80-115) mg/dL Calcium 8.6 (8.5-10.1) mg/dL Magnesium 1.8 (1.8-2.4) mg/dl Total Bilirubin 0.4 (0.2-1.0) mg/dL AST 24 (15-37) U/L ALT 26 (14-59) U/L Alkaline Phosphatase 67 (46-116) U/L C-Reactive Protein 0.5 (<1.0) mg/dL Total Protein 6.1 L (6.4-8.2) g/dl Albumin 3.2 L (3.4-5.0) g/dl Globulin 2.9 gm/dL Albumin/Globulin Ratio 1.1 (1-2) 03/22/19 Range/Units 05:25 WBC (3.98-10.04) K/mm3 RBC (3.98-5.22) M/mm3 Hgb (11.2-15.7) gm/dl Hct (34.1-44.9) % MCV (79.4-94.8) fl MCH (25.6-32.2) pg MCHC (32.2-35.5) g/dl RDW Std Deviation (36.4-46.3) fL Plt Count (182-369) K/mm3 MPV (9.4-12.3) fl Neut % (Auto) (34.0-71.1) % Lymph % (Auto) (19.3-51.7) % [place] % (Auto) (4.7-12.5) % Eos % (Auto) (0.7-5.8) Baso % (Auto) (0.1-1.2) % Neut # (Auto) (1.56-6.13) K/mm3 Lymph # (Auto) (1.18-3.74) K/mm3 [place] # (Auto) (0.24-0.36) K/mm3 Eos # (Auto) (0.04-0.36) K/mm3 Baso # (Auto) (0.01-0.08) K/mm3 Sodium 140 (136-145) mEq/L Potassium 3.5 (3.5-5.1) mEq/L Chloride 104 (98-107) mEq/L Carbon Dioxide 27 (21-32) mEq/L Anion Gap 12.5 (5-15) BUN 8 (7-18) mg/dL Creatinine 0.9 (0.55-1.02) mg/dL Est Cr Clr Drug Dosing 44.52 mL/min Estimated GFR (MDRD) > 60 (>60) mL/min BUN/Creatinine Ratio 8.9 L (14-18) Glucose 103 (80-115) mg/dL Calcium 8.9 (8.5-10.1) mg/dL Magnesium 1.9 (1.8-2.4) mg/dl Total Bilirubin (0.2-1.0) mg/dL AST (15-37) U/L ALT (14-59) U/L Alkaline Phosphatase (46-116) U/L C-Reactive Protein (<1.0) mg/dL Total Protein (6.4-8.2) g/dl Albumin (3.4-5.0) g/dl Globulin gm/dL Albumin/Globulin Ratio (1-2) Med Orders - Current: Current Medications Hydromorphone HCl (Dilaudid) 0.5 mg IVPUSH Q1H PRN PRN Reason: Pain Last Admin: 03/21/19 20:35 Dose: 0.5 mg Metronidazole 500 mg/ Premix 100 mls @ 100 mls/hr IV Q8H [facility] Last Admin: 03/22/19 01:12 Dose: 100 mls/hr Lorazepam (Ativan) 0.5 mg IVPUSH Q3H PRN PRN Reason: Anxiety Last Admin: 03/21/19 22:27 Dose: 0.5 mg Metoprolol Tartrate (Lopressor) 5 mg IVPUSH Q4H PRN PRN Reason: Hypertension Ondansetron HCl (Zofran) 4 mg IVPUSH Q6H PRN PRN Reason: Nausea/Vomiting Pantoprazole Sodium (Protonix Iv) 40 mg IVPUSH DAILY [facility] Last Admin: 03/21/19 17:48 Dose: 40 mg Phenol/Menthol (Chloraseptic Throat [place]) 1 ml MUCMEM Q2H PRN PRN Reason: Sore Throat Last Admin: 03/20/19 23:55 Dose: 1 spray Sodium Chloride (Saline Flush) 10 ml FLUSH ONETIME PRN PRN Reason: KEEP VEIN OPEN Last Admin: 03/19/19 22:58 Dose: 10 ml Discontinued Medications Diatrizoate Meglum/Diatrizoate Sod (Gastrografin 37%) 60 ml PO ONETIME ONE Stop: 03/19/19 21:15 Last Admin: 03/19/19 22:58 Dose: 60 ml Hydromorphone HCl (Dilaudid) 0.5 mg IVPUSH ONETIME ONE Stop: 03/19/19 21:01 Last Admin: 03/19/19 21:16 Dose: 0.5 mg Sodium Chloride (Normal Saline) 1,000 mls @ 150 mls/hr IV ASDIRECTED [facility] Last Admin: 03/19/19 21:14 Dose: 150 mls/hr Sodium Chloride (Normal Saline) 1,000 mls @ 150 mls/hr IV ASDIRECTED [facility] Lactated Ringer's (Ringers, Lactated) 1,000 mls @ 100 mls/hr IV ASDIRECTED [facility] Last Admin: 03/21/19 02:13 Dose: 100 mls/hr Iopamidol (Isovue-300 (61%)) 100 ml IVPUSH ONETIME ONE Stop: 03/19/19 21:15 Last Admin: 03/19/19 22:58 Dose: 100 ml Lorazepam (Ativan) 0.5 mg IVPUSH ONETIME STA Stop: 03/19/19 21:01 Last Admin: 03/19/19 21:18 Dose: 0.5 mg Ondansetron HCl (Zofran) 4 mg IVPUSH ONETIME ONE Stop: 03/19/19 21:00 Last Admin: 03/19/19 21:13 Dose: 4 mg Ondansetron HCl (Zofran) 4 mg IVPUSH ONETIME ONE Stop: 03/19/19 21:01 Last Admin: 03/20/19 02:10 Dose: Not Given - Exam Wound/Incisions: Healing Well General: Alert, Oriented, No Acute Distress GI/Abdominal Exam: Soft, No Distention, Tender Sepsis Event Note - Evaluation Sepsis Screening Result: No Definite Risk - Focused Exam Vital Signs: Vital Signs Temp Temp Pulse Pulse Resp BP BP 03/22/19 05:50 98.1 F 76 16 123/82 03/22/19 01:11 97.9 F 71 16 125/77 03/21/19 21:00 97.8 F 70 16 147/78 H 03/21/19 20:33 67 147/78 H 03/21/19 20:31 97.9 F 67 157/89 H 03/21/19 20:00 Pulse Ox Pulse Ox 03/22/19 05:50 95 03/22/19 01:11 95 03/21/19 21:00 97 03/21/19 20:33 96 03/21/19 20:31 97 03/21/19 20:00 96 Date Exam was Performed: 03/22/19 Time Exam was Performed: 07:29 - Problem List Review Problem List Initiated/Reviewed/Updated: No - My Orders Last 24 Hours: Active Orders 24 hr Category Date Time Status Communication Order [RC] DAILY Care 03/21/19 23:53 Active Clear Liquid Diet [DIET] Diet 03/21/19 Dinner Active Pantoprazole [ProTONIX IV] Med 03/21/19 17:45 Active 40 mg IVPUSH DAILY Medication Orders Hydromorphone HCl (Dilaudid) 0.5 mg IVPUSH Q1H PRN PRN Reason: Pain Last Admin: 03/21/19 20:35 Dose: 0.5 mg Metronidazole 500 mg/ Premix 100 mls @ 100 mls/hr IV Q8H [facility] Last Admin: 03/22/19 01:12 Dose: 100 mls/hr Infusion: 03/21/19 18:02 Dose: 100 mls/hr Admin: 03/21/19 17:02 Dose: 100 mls/hr Infusion: 03/21/19 09:30 Dose: 100 mls/hr Admin: 03/21/19 08:30 Dose: 100 mls/hr Infusion: 03/21/19 01:58 Dose: 100 mls/hr Admin: 03/21/19 00:58 Dose: 100 mls/hr Infusion: 03/20/19 17:30 Dose: 100 mls/hr Admin: 03/20/19 16:30 Dose: 100 mls/hr Infusion: 03/20/19 10:58 Dose: 100 mls/hr Admin: 03/20/19 09:58 Dose: 100 mls/hr Lorazepam (Ativan) 0.5 mg IVPUSH Q3H PRN PRN Reason: Anxiety Last Admin: 03/21/19 22:27 Dose: 0.5 mg Admin: 03/20/19 22:10 Dose: 0.5 mg Admin: 03/20/19 02:40 Dose: 0.5 mg Metoprolol Tartrate (Lopressor) 5 mg IVPUSH Q4H PRN PRN Reason: Hypertension Ondansetron HCl (Zofran) 4 mg IVPUSH Q6H PRN PRN Reason: Nausea/Vomiting Pantoprazole Sodium (Protonix Iv) 40 mg IVPUSH DAILY [facility] Last Admin: 03/21/19 17:48 Dose: 40 mg Phenol/Menthol (Chloraseptic Throat [place]) 1 ml MUCMEM Q2H PRN PRN Reason: Sore Throat Last Admin: 03/20/19 23:55 Dose: 1 spray Admin: 03/20/19 16:17 Dose: 1 spray Admin: 03/20/19 11:04 Dose: 1 spray Sodium Chloride (Saline Flush) 10 ml FLUSH ONETIME PRN PRN Reason: KEEP VEIN OPEN Last Admin: 03/19/19 22:58 Dose: 10 ml - Assessment Assessment (Free Text/Narrative):: Feeling a bit better today. No nausea or vomiting. Passing flatus and still having diarrhea. - Plan Plan (Free Text/Narrative):: Advance diet to Full liquids today. Encourage ambulation. Stop IV fluids.
--- NOTE | 2019-03-22 07:37 | PCM.PN ---
- General Info Date of Service: 03/22/19 Admission Dx/Problem (Free Text): Admission Diagnosis/Problem Admission Diagnosis/Problem Small bowel obstruction Subjective Update: In to see Catalina. Diet was advanced to regular and she reports some abdominal pain, but minimal, with this. She is concerned about going home today and has yet to have a good BM. No other patient concerns. Functional Status: Reports: Pain Controlled, Tolerating Diet (regular diet ), Ambulating, Urinating. Denies: New Symptoms - Review of Systems General: Reports: No Symptoms. Denies: Fever, Weakness, Fatigue, Malaise, Chills HEENT: Reports: No Symptoms. Denies: Headaches, Sore Throat Pulmonary: Reports: No Symptoms. Denies: Shortness of Breath, Cough, Sputum, Wheezing Cardiovascular: Reports: No Symptoms. Denies: Chest Pain, Palpitations, Dyspnea on Exertion, Edema Gastrointestinal: Reports: Abdominal Pain (LLQ>LUQ, improved ). Denies: Constipation, Diarrhea, Nausea, Vomiting Genitourinary: Reports: No Symptoms. Denies: Pain Musculoskeletal: Reports: No Symptoms Skin: Reports: No Symptoms. Denies: Cyanosis Neurological: Reports: No Symptoms. Denies: Confusion, Difficulty Walking, Gait Disturbance Psychiatric: Reports: No Symptoms - Patient Data Vitals - Most Recent: Last Vital Signs Temp 98.1 F 03/22/19 05:50 Pulse 76 03/22/19 05:50 Resp 16 03/22/19 05:50 BP 123/82 03/22/19 05:50 Pulse Ox 95 03/22/19 05:50 Weight - Most Recent: 152 lb 14.4 oz I&O - Last 24 Hours: Intake & Output 03/21/19 03/22/19 03/22/19 22:59 06:59 14:59 Intake Total 1817 900 Output Total 1600 1000 Balance 217 -100 Lab Results Last 24 Hours: Laboratory Results - last 24 hr 03/21/19 03/21/19 03/22/19 Range/Units 05:36 05:36 05:25 WBC 4.30 (3.98-10.04) K/mm3 RBC 4.17 (3.98-5.22) M/mm3 Hgb 11.1 L (11.2-15.7) gm/dl Hct 35.2 (34.1-44.9) % MCV 84.4 (79.4-94.8) fl MCH 26.6 (25.6-32.2) pg MCHC 31.5 L (32.2-35.5) g/dl RDW Std Deviation 45.0 (36.4-46.3) fL Plt Count 210 (182-369) K/mm3 MPV 9.1 L (9.4-12.3) fl Neut % (Auto) 53.5 (34.0-71.1) % Lymph % (Auto) 30.7 (19.3-51.7) % [place] % (Auto) 12.1 (4.7-12.5) % Eos % (Auto) 3.5 (0.7-5.8) Baso % (Auto) 0.2 (0.1-1.2) % Neut # (Auto) 2.30 (1.56-6.13) K/mm3 Lymph # (Auto) 1.32 (1.18-3.74) K/mm3 [place] # (Auto) 0.52 H (0.24-0.36) K/mm3 Eos # (Auto) 0.15 (0.04-0.36) K/mm3 Baso # (Auto) 0.01 (0.01-0.08) K/mm3 Sodium 141 (136-145) mEq/L Potassium 3.7 (3.5-5.1) mEq/L Chloride 105 (98-107) mEq/L Carbon Dioxide 27 (21-32) mEq/L Anion Gap 12.7 (5-15) BUN 11 (7-18) mg/dL Creatinine 1.0 (0.55-1.02) mg/dL Est Cr Clr Drug Dosing 40.07 mL/min Estimated GFR (MDRD) 55 (>60) mL/min BUN/Creatinine Ratio 11.0 L (14-18) Glucose 90 (80-115) mg/dL Calcium 8.6 (8.5-10.1) mg/dL Magnesium 1.8 (1.8-2.4) mg/dl Total Bilirubin 0.4 (0.2-1.0) mg/dL AST 24 (15-37) U/L ALT 26 (14-59) U/L Alkaline Phosphatase 67 (46-116) U/L C-Reactive Protein 0.5 (<1.0) mg/dL Total Protein 6.1 L (6.4-8.2) g/dl Albumin 3.2 L (3.4-5.0) g/dl Globulin 2.9 gm/dL Albumin/Globulin Ratio 1.1 (1-2) 03/22/19 Range/Units 05:25 WBC (3.98-10.04) K/mm3 RBC (3.98-5.22) M/mm3 Hgb (11.2-15.7) gm/dl Hct (34.1-44.9) % MCV (79.4-94.8) fl MCH (25.6-32.2) pg MCHC (32.2-35.5) g/dl RDW Std Deviation (36.4-46.3) fL Plt Count (182-369) K/mm3 MPV (9.4-12.3) fl Neut % (Auto) (34.0-71.1) % Lymph % (Auto) (19.3-51.7) % [place] % (Auto) (4.7-12.5) % Eos % (Auto) (0.7-5.8) Baso % (Auto) (0.1-1.2) % Neut # (Auto) (1.56-6.13) K/mm3 Lymph # (Auto) (1.18-3.74) K/mm3 [place] # (Auto) (0.24-0.36) K/mm3 Eos # (Auto) (0.04-0.36) K/mm3 Baso # (Auto) (0.01-0.08) K/mm3 Sodium 140 (136-145) mEq/L Potassium 3.5 (3.5-5.1) mEq/L Chloride 104 (98-107) mEq/L Carbon Dioxide 27 (21-32) mEq/L Anion Gap 12.5 (5-15) BUN 8 (7-18) mg/dL Creatinine 0.9 (0.55-1.02) mg/dL Est Cr Clr Drug Dosing 44.52 mL/min Estimated GFR (MDRD) > 60 (>60) mL/min BUN/Creatinine Ratio 8.9 L (14-18) Glucose 103 (80-115) mg/dL Calcium 8.9 (8.5-10.1) mg/dL Magnesium 1.9 (1.8-2.4) mg/dl Total Bilirubin (0.2-1.0) mg/dL AST (15-37) U/L ALT (14-59) U/L Alkaline Phosphatase (46-116) U/L C-Reactive Protein (<1.0) mg/dL Total Protein (6.4-8.2) g/dl Albumin (3.4-5.0) g/dl Globulin gm/dL Albumin/Globulin Ratio (1-2) Med Orders - Current: Current Medications Hydromorphone HCl (Dilaudid) 0.5 mg IVPUSH Q1H PRN PRN Reason: Pain Last Admin: 03/21/19 20:35 Dose: 0.5 mg Metronidazole 500 mg/ Premix 100 mls @ 100 mls/hr IV Q8H [facility] Last Admin: 03/22/19 01:12 Dose: 100 mls/hr Lorazepam (Ativan) 0.5 mg IVPUSH Q3H PRN PRN Reason: Anxiety Last Admin: 03/21/19 22:27 Dose: 0.5 mg Metoprolol Tartrate (Lopressor) 5 mg IVPUSH Q4H PRN PRN Reason: Hypertension Ondansetron HCl (Zofran) 4 mg IVPUSH Q6H PRN PRN Reason: Nausea/Vomiting Pantoprazole Sodium (Protonix Iv) 40 mg IVPUSH DAILY [facility] Last Admin: 03/21/19 17:48 Dose: 40 mg Phenol/Menthol (Chloraseptic Throat [place]) 1 ml MUCMEM Q2H PRN PRN Reason: Sore Throat Last Admin: 03/20/19 23:55 Dose: 1 spray Sodium Chloride (Saline Flush) 10 ml FLUSH ONETIME PRN PRN Reason: KEEP VEIN OPEN Last Admin: 03/19/19 22:58 Dose: 10 ml Discontinued Medications Diatrizoate Meglum/Diatrizoate Sod (Gastrografin 37%) 60 ml PO ONETIME ONE Stop: 03/19/19 21:15 Last Admin: 03/19/19 22:58 Dose: 60 ml Hydromorphone HCl (Dilaudid) 0.5 mg IVPUSH ONETIME ONE Stop: 03/19/19 21:01 Last Admin: 03/19/19 21:16 Dose: 0.5 mg Sodium Chloride (Normal Saline) 1,000 mls @ 150 mls/hr IV ASDIRECTED DIANE Last Admin: 03/19/19 21:14 Dose: 150 mls/hr Sodium Chloride (Normal Saline) 1,000 mls @ 150 mls/hr IV ASDIRECTED [facility] Lactated Ringer's (Ringers, Lactated) 1,000 mls @ 100 mls/hr IV ASDIRECTED [facility] Last Admin: 03/21/19 02:13 Dose: 100 mls/hr Iopamidol (Isovue-300 (61%)) 100 ml IVPUSH ONETIME ONE Stop: 03/19/19 21:15 Last Admin: 03/19/19 22:58 Dose: 100 ml Lorazepam (Ativan) 0.5 mg IVPUSH ONETIME STA Stop: 03/19/19 21:01 Last Admin: 03/19/19 21:18 Dose: 0.5 mg Ondansetron HCl (Zofran) 4 mg IVPUSH ONETIME ONE Stop: 03/19/19 21:00 Last Admin: 03/19/19 21:13 Dose: 4 mg Ondansetron HCl (Zofran) 4 mg IVPUSH ONETIME ONE Stop: 03/19/19 21:01 Last Admin: 03/20/19 02:10 Dose: Not Given - Exam Quality Assessment: DVT Prophylaxis General: Alert, Oriented, Cooperative, No Acute Distress HEENT: Pupils Equal, Pupils Reactive, Mucous Membr. Moist/[place] Neck: Supple Lungs: Clear to Auscultation, Normal Respiratory Effort Cardiovascular: Regular Rate, Regular Rhythm GI/Abdominal Exam: Soft, Tender (LLQ>LUQ, improving ), Abnormal Bowel Sounds ( hyperactive ). No: No Organomegaly, No Distention (Female) Exam: Deferred Back Exam: Normal Inspection, Full Range of Motion Extremities: Normal Inspection, Normal Range of Motion, Non-Tender, No Pedal Edema, Normal Capillary Refill Skin: Warm, Dry, Intact Neurological: No New Focal Deficit Psy/Mental Status: Alert, Normal Affect, Normal Mood Sepsis Event Note - Evaluation Sepsis Screening Result: No Definite Risk - Focused Exam Vital Signs: Vital Signs Temp Temp Pulse Pulse Resp BP BP 03/22/19 05:50 98.1 F 76 16 123/82 03/22/19 01:11 97.9 F 71 16 125/77 03/21/19 21:00 97.8 F 70 16 147/78 H 03/21/19 20:33 67 147/78 H 03/21/19 20:31 97.9 F 67 157/89 H 03/21/19 20:00 Pulse Ox Pulse Ox 03/22/19 05:50 95 03/22/19 01:11 95 03/21/19 21:00 97 03/21/19 20:33 96 03/21/19 20:31 97 03/21/19 20:00 96 Date Exam was Performed: 03/22/19 Time Exam was Performed: 14:00 - Problem List & Annotations (1) Anxiety SNOMED Code(s): 35300862 Code(s): F41.9 - ANXIETY DISORDER, UNSPECIFIED Status: Chronic Priority: Low Current Visit: No (2) Small bowel obstruction SNOMED Code(s): 865658792 Code(s): K56.609 - UNSP INTESTNL OBST, UNSP TO PARTIAL VERSUS COMPLETE OBST Status: Acute Priority: High Current Visit: Yes (3) Abdominal pain SNOMED Code(s): 67696553 Code(s): R10.9 - UNSPECIFIED ABDOMINAL PAIN Status: Acute Priority: High Current Visit: Yes (4) HTN, Essential hypertension SNOMED Code(s): 73759534 Code(s): I10 - ESSENTIAL (PRIMARY) HYPERTENSION Status: Chronic Priority : Low Current Visit: No (5) Hyperlipidemia SNOMED Code(s): 05367650 Code(s): E78.5 - HYPERLIPIDEMIA, UNSPECIFIED Status: Chronic Priority: Low Current Visit: No (6) Inflammatory bowel disease SNOMED Code(s): 00248004 Code(s): K63.89 - OTHER SPECIFIED DISEASES OF INTESTINE Status: Chronic Priority: Medium Current Visit: No (7) Nausea and vomiting in adult SNOMED Code(s): 12460246 Code(s): R11.2 - NAUSEA WITH VOMITING, UNSPECIFIED Status: Resolved Priority: High Current Visit: Yes (8) Pulmonary hypertension SNOMED Code(s): 33657529 Code(s): I27.20 - PULMONARY HYPERTENSION, UNSPECIFIED Status: Chronic Priority: Medium Current Visit: No (9) KIRILL on CPAP SNOMED Code(s): 97781817 Code(s): G47.33 - OBSTRUCTIVE SLEEP APNEA (ADULT) (PEDIATRIC); Z99.89 - DEPENDENCE ON OTHER ENABLING MACHINES AND DEVICES Status: Chronic Priority: Medium Current Visit: No - Problem List Review Problem List Initiated/Reviewed/Updated: Yes - Plan Plan:: Assessment * Small bowel obstruction with findings suspicious for enteritis on CT scan * CT of abdomen shows focal bowel wall thickening within a loop with distal small bowel involving the ileum. This shows enhancing wall with surrounding inflammatory change and most likely represents a focal area of enteritis. * Colonoscopy on March 31, 2019 reportedly showing colitis and polyps * History of Campylobacter recently treated with Zithromax 500 mg daily x3 days * Recheck CT and stool cultures negative last week for Abductor and lactoferrin * Currently having little drainage out of NG tube and positive flatus * Pulmonary hypertension with sleep apnea requiring CPAP * Hypertension Plan * Admit to medical floor * Advance diet as tolerated - had some pain last night and restarted on clears, advancing now * Removed NG Tube 03/21/18 * IV Lopressor for blood pressure greater than 180/105 and or heart rate greater than 110 * Consult surgery - Dr. Franco * Metronidazole 500 mg IV every 8 hours -> discontinue * IV pain medications * BMP, magnesium in the morning * VTE prophylaxis with SCDs * CODE STATUS: Full code * Length of stay: Likely discharge tomorrow pending continued improvement
[2019-03-22] MEDS: Pantoprazole 40 MG Vial IVPUSH SCH (08:43)
[2019-03-22] MEDS: Saccharomyces Boulardii (Probiotic) 250 MG Cap PO SCH (17:31)
[2019-03-22] MEDS ORDERED: Atenolol 25 MG Tab PO SCH (18:00)
[2019-03-22] MEDS: busPIRone 5 MG Tab PO SCH (20:59)
[2019-03-22] MEDS ORDERED: Ezetimibe 10 MG Tab PO SCH (21:00)
[2019-03-22] MEDS ORDERED: NIFEdipine 30 MG Tab.ER PO SCH (21:00)
[2019-03-22] MEDS ORDERED: LORazepam 0.5 MG Tab PO PRN (21:58)
[2019-03-23 04:27] VITALS: PULSE 78
--- NOTE | 2019-03-23 07:54 | PCM.SURGPN ---
- General Info Date of Service: 03/23/19 Functional Status: Reports: Pain Controlled, Tolerating Diet, Ambulating, Urinating - Review of Systems General: Reports: No Symptoms HEENT: Reports: Headaches Pulmonary: Reports: No Symptoms Cardiovascular: Reports: No Symptoms Gastrointestinal: Reports: No Symptoms Genitourinary: Reports: No Symptoms Musculoskeletal: Reports: No Symptoms Skin: Reports: No Symptoms - Patient Data Vitals - Most Recent: Last Vital Signs Temp 97.9 F 03/23/19 04:17 Pulse 78 03/23/19 04:17 Resp 16 03/23/19 04:17 BP 109/65 03/23/19 04:17 Pulse Ox 92 L 03/23/19 04:17 Weight - Most Recent: 68.175 kg I&O - Last 24 Hours: Intake & Output 03/22/19 03/23/19 03/23/19 22:59 06:59 14:59 Intake Total 490 500 Output Total 1150 700 Balance -660 -200 Med Orders - Current: Current Medications Aspirin (Halfprin) 81 mg PO DAILY [facility] Atenolol (Tenormin) 25 mg PO QPM [facility] Last Admin: 03/22/19 17:32 Dose: 25 mg Atenolol (Tenormin) 50 mg PO QAM [facility] Buspirone HCl (Buspar) 10 mg PO BID [facility] Last Admin: 03/22/19 20:59 Dose: 10 mg Ezetimibe (Zetia) 10 mg PO BEDTIME [facility] Last Admin: 03/22/19 20:59 Dose: 10 mg Hydromorphone HCl (Dilaudid) 0.5 mg IVPUSH Q1H PRN PRN Reason: Pain Last Admin: 03/21/19 20:35 Dose: 0.5 mg Lorazepam (Ativan) 0.5 mg PO Q4H PRN PRN Reason: Anxiety Last Admin: 03/22/19 22:32 Dose: 0.5 mg Metoprolol Tartrate (Lopressor) 5 mg IVPUSH Q4H PRN PRN Reason: Hypertension Nifedipine (Procardia Xl) 30 mg PO BEDTIME [facility] Last Admin: 03/22/19 20:59 Dose: 30 mg Ondansetron HCl (Zofran) 4 mg IVPUSH Q6H PRN PRN Reason: Nausea/Vomiting Oxybutynin Chloride (Oxybutynin Er) 10 mg PO DAILY [facility] Pantoprazole Sodium (Protonix) 40 mg PO DAILY [facility] Phenol/Menthol (Chloraseptic Throat [place]) 1 ml MUCMEM Q2H PRN PRN Reason: Sore Throat Last Admin: 03/20/19 23:55 Dose: 1 spray Saccharomyces Boulardii (Florastor) 500 mg PO DAILY [facility] Last Admin: 03/22/19 17:31 Dose: 500 mg Sodium Chloride (Saline Flush) 10 ml FLUSH ONETIME PRN PRN Reason: KEEP VEIN OPEN Last Admin: 03/19/19 22:58 Dose: 10 ml Discontinued Medications Diatrizoate Meglum/Diatrizoate Sod (Gastrografin 37%) 60 ml PO ONETIME ONE Stop: 03/19/19 21:15 Last Admin: 03/19/19 22:58 Dose: 60 ml Hydromorphone HCl (Dilaudid) 0.5 mg IVPUSH ONETIME ONE Stop: 03/19/19 21:01 Last Admin: 03/19/19 21:16 Dose: 0.5 mg Sodium Chloride (Normal Saline) 1,000 mls @ 150 mls/hr IV ASDIRECTED [facility] Last Admin: 03/19/19 21:14 Dose: 150 mls/hr Sodium Chloride (Normal Saline) 1,000 mls @ 150 mls/hr IV ASDIRECTED [facility] Lactated Ringer's (Ringers, Lactated) 1,000 mls @ 100 mls/hr IV ASDIRECTED [facility] Last Admin: 03/21/19 02:13 Dose: 100 mls/hr Metronidazole 500 mg/ Premix 100 mls @ 100 mls/hr IV Q8H [facility] Last Admin: 03/22/19 16:50 Dose: Not Given Iopamidol (Isovue-300 (61%)) 100 ml IVPUSH ONETIME ONE Stop: 03/19/19 21:15 Last Admin: 03/19/19 22:58 Dose: 100 ml Lorazepam (Ativan) 0.5 mg IVPUSH ONETIME STA Stop: 03/19/19 21:01 Last Admin: 03/19/19 21:18 Dose: 0.5 mg Lorazepam (Ativan) 0.5 mg IVPUSH Q3H PRN PRN Reason: Anxiety Last Admin: 03/21/19 22:27 Dose: 0.5 mg Ondansetron HCl (Zofran) 4 mg IVPUSH ONETIME ONE Stop: 03/19/19 21:00 Last Admin: 03/19/19 21:13 Dose: 4 mg Ondansetron HCl (Zofran) 4 mg IVPUSH ONETIME ONE Stop: 03/19/19 21:01 Last Admin: 03/20/19 02:10 Dose: Not Given Pantoprazole Sodium (Protonix Iv) 40 mg IVPUSH DAILY [facility] Last Admin: 03/22/19 08:43 Dose: 40 mg - Exam General: Alert, Oriented, Cooperative, No Acute Distress GI/Abdominal Exam: Normal Bowel Sounds, Soft, No Organomegaly, No Distention, Tender (LLQ moderately) Skin: Warm, Dry, Intact Sepsis Event Note - Evaluation Sepsis Screening Result: No Definite Risk - Focused Exam Vital Signs: Vital Signs Temp Pulse Resp BP Pulse Ox Pulse Ox 03/23/19 04:17 97.9 F 78 16 109/65 92 L 03/23/19 00:26 97.9 F 76 16 112/87 94 L 03/22/19 21:00 141/76 H 03/22/19 20:59 141/76 H 03/22/19 20:14 97.5 F 75 20 144/95 H 96 03/22/19 20:00 96 Date Exam was Performed: 03/23/19 Time Exam was Performed: 07:46 - Problem List Review Problem List Initiated/Reviewed/Updated: No - My Orders Last 24 Hours: Active Orders 24 hr Category Date Time Status Regular Diet [DIET] Diet 03/22/19 Lunch Active BASIC METABOLIC PANEL,BMP [CHEM] AM Lab 03/23/19 06:35 Received MAGNESIUM [CHEM] AM Lab 03/23/19 06:35 Received Aspirin [Halfprin] Med 03/23/19 09:00 Active 81 mg PO DAILY Ezetimibe [Zetia] Med 03/22/19 21:00 Active 10 mg PO BEDTIME LORazepam [Ativan] Med 03/22/19 21:58 Active 0.5 mg PO Q4H PRN NIFEdipine [Procardia XL] Med 03/22/19 21:00 Active 30 mg PO BEDTIME Oxybutynin [Oxybutynin ER] Med 03/23/19 09:00 Active 10 mg PO DAILY Pantoprazole [ProTONIX] Med 03/23/19 09:00 Active 40 mg PO DAILY Saccharomyces Boulardii [Florastor] Med 03/22/19 17:00 Active 500 mg PO DAILY atenoloL [Tenormin] Med 03/22/19 18:00 Active 25 mg PO QPM atenoloL [Tenormin] Med 03/23/19 08:00 Active 50 mg PO QAM busPIRone [Buspar] Med 03/22/19 21:00 Active 10 mg PO BID Medication Orders Aspirin (Halfprin) 81 mg PO DAILY [facility] Atenolol (Tenormin) 25 mg PO QPM [facility] Last Admin: 03/22/19 17:32 Dose: 25 mg Atenolol (Tenormin) 50 mg PO QAM [facility] Buspirone HCl (Buspar) 10 mg PO BID [facility] Last Admin: 03/22/19 20:59 Dose: 10 mg Ezetimibe (Zetia) 10 mg PO BEDTIME [facility] Last Admin: 03/22/19 20:59 Dose: 10 mg Hydromorphone HCl (Dilaudid) 0.5 mg IVPUSH Q1H PRN PRN Reason: Pain Last Admin: 03/21/19 20:35 Dose: 0.5 mg Lorazepam (Ativan) 0.5 mg PO Q4H PRN PRN Reason: Anxiety Last Admin: 03/22/19 22:32 Dose: 0.5 mg Metoprolol Tartrate (Lopressor) 5 mg IVPUSH Q4H PRN PRN Reason: Hypertension Nifedipine (Procardia Xl) 30 mg PO BEDTIME [facility] Last Admin: 03/22/19 20:59 Dose: 30 mg Ondansetron HCl (Zofran) 4 mg IVPUSH Q6H PRN PRN Reason: Nausea/Vomiting Oxybutynin Chloride (Oxybutynin Er) 10 mg PO DAILY [facility] Pantoprazole Sodium (Protonix) 40 mg PO DAILY [facility] Phenol/Menthol (Chloraseptic Throat [place]) 1 ml MUCMEM Q2H PRN PRN Reason: Sore Throat Last Admin: 03/20/19 23:55 Dose: 1 spray Admin: 03/20/19 16:17 Dose: 1 spray Admin: 03/20/19 11:04 Dose: 1 spray Saccharomyces Boulardii (Florastor) 500 mg PO DAILY [facility] Last Admin: 03/22/19 17:31 Dose: 500 mg Sodium Chloride (Saline Flush) 10 ml FLUSH ONETIME PRN PRN Reason: KEEP VEIN OPEN Last Admin: 03/19/19 22:58 Dose: 10 ml - Assessment Assessment (Free Text/Narrative):: Patient tolerated diet overnight, feeling well. No diarrhea overnight. Has headache this AM. - Plan Plan (Free Text/Narrative):: - Progressing well. Now tolerating diet and abdominal pain has subsided. - Resume all her home medications orally. - Ok to discharge home today. Probably reasonable to have her complete 10 days of antibiotics course - Cipro/Flagyl. - She needs to follow up with GI. Referral to [facility] been [facility]. Please assist with appointment prior to discharge if possible. Can follow up with Dr. Ale CHINCHILLA
[2019-03-23] MEDS ORDERED: Atenolol 50 MG Tab PO SCH (08:00)
[2019-03-23] MEDS ORDERED: Ibuprofen 600 MG Tab PO ONE (08:08)
--- NOTE | 2019-03-23 08:09 | PCM.PN ---
- General Info Date of Service: 03/23/19 Admission Dx/Problem (Free Text): Admission Diagnosis/Problem Admission Diagnosis/Problem Small bowel obstruction - Patient Data Vitals - Most Recent: Last Vital Signs Temp 97.9 F 03/23/19 04:17 Pulse 78 03/23/19 04:17 Resp 16 03/23/19 04:17 BP 109/65 03/23/19 04:17 Pulse Ox 92 L 03/23/19 04:17 Weight - Most Recent: 150 lb 4.8 oz I&O - Last 24 Hours: Intake & Output 03/22/19 03/23/19 03/23/19 22:59 06:59 14:59 Intake Total 490 500 Output Total 1150 700 Balance -660 -200 Lab Results Last 24 Hours: Laboratory Results - last 24 hr 03/23/19 Range/Units 06:35 Sodium 138 (136-145) mEq/L Potassium 3.6 (3.5-5.1) mEq/L Chloride 102 (98-107) mEq/L Carbon Dioxide 25 (21-32) mEq/L Anion Gap 14.6 (5-15) BUN 11 (7-18) mg/dL Creatinine 0.8 (0.55-1.02) mg/dL Est Cr Clr Drug Dosing 50.08 mL/min Estimated GFR (MDRD) > 60 (>60) mL/min BUN/Creatinine Ratio 13.8 L (14-18) Glucose 110 (80-115) mg/dL Calcium 9.2 (8.5-10.1) mg/dL Magnesium 1.8 (1.8-2.4) mg/dl Med Orders - Current: Current Medications Aspirin (Halfprin) 81 mg PO DAILY [facility] Atenolol (Tenormin) 25 mg PO QPM [facility] Last Admin: 03/22/19 17:32 Dose: 25 mg Atenolol (Tenormin) 50 mg PO QAM [facility] Buspirone HCl (Buspar) 10 mg PO BID [facility] Last Admin: 03/22/19 20:59 Dose: 10 mg Ezetimibe (Zetia) 10 mg PO BEDTIME [facility] Last Admin: 03/22/19 20:59 Dose: 10 mg Hydromorphone HCl (Dilaudid) 0.5 mg IVPUSH Q1H PRN PRN Reason: Pain Last Admin: 03/21/19 20:35 Dose: 0.5 mg Lorazepam (Ativan) 0.5 mg PO Q4H PRN PRN Reason: Anxiety Last Admin: 03/22/19 22:32 Dose: 0.5 mg Metoprolol Tartrate (Lopressor) 5 mg IVPUSH Q4H PRN PRN Reason: Hypertension Nifedipine (Procardia Xl) 30 mg PO BEDTIME [facility] Last Admin: 03/22/19 20:59 Dose: 30 mg Ondansetron HCl (Zofran) 4 mg IVPUSH Q6H PRN PRN Reason: Nausea/Vomiting Oxybutynin Chloride (Oxybutynin Er) 10 mg PO DAILY [facility] Pantoprazole Sodium (Protonix) 40 mg PO DAILY [facility] Phenol/Menthol (Chloraseptic Throat [place]) 1 ml MUCMEM Q2H PRN PRN Reason: Sore Throat Last Admin: 03/20/19 23:55 Dose: 1 spray Saccharomyces Boulardii (Florastor) 500 mg PO DAILY [facility] Last Admin: 03/22/19 17:31 Dose: 500 mg Sodium Chloride (Saline Flush) 10 ml FLUSH ONETIME PRN PRN Reason: KEEP VEIN OPEN Last Admin: 03/19/19 22:58 Dose: 10 ml Discontinued Medications Diatrizoate Meglum/Diatrizoate Sod (Gastrografin 37%) 60 ml PO ONETIME ONE Stop: 03/19/19 21:15 Last Admin: 03/19/19 22:58 Dose: 60 ml Hydromorphone HCl (Dilaudid) 0.5 mg IVPUSH ONETIME ONE Stop: 03/19/19 21:01 Last Admin: 03/19/19 21:16 Dose: 0.5 mg Sodium Chloride (Normal Saline) 1,000 mls @ 150 mls/hr IV ASDIRECTED [facility] Last Admin: 03/19/19 21:14 Dose: 150 mls/hr Sodium Chloride (Normal Saline) 1,000 mls @ 150 mls/hr IV ASDIRECTED [facility] Lactated Ringer's (Ringers, Lactated) 1,000 mls @ 100 mls/hr IV ASDIRECTED [facility] Last Admin: 03/21/19 02:13 Dose: 100 mls/hr Metronidazole 500 mg/ Premix 100 mls @ 100 mls/hr IV Q8H [facility] Last Admin: 03/22/19 16:50 Dose: Not Given Iopamidol (Isovue-300 (61%)) 100 ml IVPUSH ONETIME ONE Stop: 03/19/19 21:15 Last Admin: 03/19/19 22:58 Dose: 100 ml Lorazepam (Ativan) 0.5 mg IVPUSH ONETIME STA Stop: 03/19/19 21:01 Last Admin: 03/19/19 21:18 Dose: 0.5 mg Lorazepam (Ativan) 0.5 mg IVPUSH Q3H PRN PRN Reason: Anxiety Last Admin: 03/21/19 22:27 Dose: 0.5 mg Ondansetron HCl (Zofran) 4 mg IVPUSH ONETIME ONE Stop: 03/19/19 21:00 Last Admin: 03/19/19 21:13 Dose: 4 mg Ondansetron HCl (Zofran) 4 mg IVPUSH ONETIME ONE Stop: 03/19/19 21:01 Last Admin: 03/20/19 02:10 Dose: Not Given Pantoprazole Sodium (Protonix Iv) 40 mg IVPUSH DAILY [facility] Last Admin: 03/22/19 08:43 Dose: 40 mg Sepsis Event Note - Evaluation Sepsis Screening Result: No Definite Risk - Focused Exam Vital Signs: Vital Signs Temp Pulse Resp BP Pulse Ox 03/23/19 04:17 97.9 F 78 16 109/65 92 L 03/23/19 00:26 97.9 F 76 16 112/87 94 L 03/22/19 21:00 141/76 H 03/22/19 20:59 141/76 H 03/22/19 20:14 97.5 F 75 20 144/95 H 96 Date Exam was Performed: 03/23/19 Time Exam was Performed: 08:08 - Problem List & Annotations (1) Anxiety SNOMED Code(s): 68070874 Code(s): F41.9 - ANXIETY DISORDER, UNSPECIFIED Status: Chronic Priority: Low Current Visit: No (2) Small bowel obstruction SNOMED Code(s): 577254399 Code(s): K56.609 - UNSP INTESTNL OBST, UNSP TO PARTIAL VERSUS COMPLETE OBST Status: Acute Priority: High Current Visit: Yes (3) Abdominal pain SNOMED Code(s): 25095641 Code(s): R10.9 - UNSPECIFIED ABDOMINAL PAIN Status: Acute Priority: High Current Visit: Yes (4) HTN, Essential hypertension SNOMED Code(s): 92970931 Code(s): I10 - ESSENTIAL (PRIMARY) HYPERTENSION Status: Chronic Priority : Low Current Visit: No (5) Hyperlipidemia SNOMED Code(s): 47523737 Code(s): E78.5 - HYPERLIPIDEMIA, UNSPECIFIED Status: Chronic Priority: Low Current Visit: No (6) Inflammatory bowel disease SNOMED Code(s): 83345890 Code(s): K63.89 - OTHER SPECIFIED DISEASES OF INTESTINE Status: Chronic Priority: Medium Current Visit: No (7) Nausea and vomiting in adult SNOMED Code(s): 16216525 Code(s): R11.2 - NAUSEA WITH VOMITING, UNSPECIFIED Status: Resolved Priority: High Current Visit: Yes (8) Pulmonary hypertension SNOMED Code(s): 47399344 Code(s): I27.20 - PULMONARY HYPERTENSION, UNSPECIFIED Status: Chronic Priority: Medium Current Visit: No (9) KIRILL on CPAP SNOMED Code(s): 45482897 Code(s): G47.33 - OBSTRUCTIVE SLEEP APNEA (ADULT) (PEDIATRIC); Z99.89 - DEPENDENCE ON OTHER ENABLING MACHINES AND DEVICES Status: Chronic Priority: Medium Current Visit: No - My Orders Last 24 Hours: My Active Orders 03/22/19 17:00 Saccharomyces Boulardii [Florastor] 500 mg PO DAILY 03/22/19 18:00 atenoloL [Tenormin] 25 mg PO QPM 03/22/19 21:00 Ezetimibe [Zetia] 10 mg PO BEDTIME NIFEdipine [Procardia XL] 30 mg PO BEDTIME busPIRone [Buspar] 10 mg PO BID 03/23/19 08:00 atenoloL [Tenormin] 50 mg PO QAM 03/23/19 09:00 Aspirin [Halfprin] 81 mg PO DAILY Oxybutynin [Oxybutynin ER] 10 mg PO DAILY Pantoprazole [ProTONIX] 40 mg PO DAILY - Plan Plan:: Assessment * Small bowel obstruction with findings suspicious for enteritis on CT scan * CT of abdomen shows focal bowel wall thickening within a loop with distal small bowel involving the ileum. This shows enhancing wall with surrounding inflammatory change and most likely represents a focal area of enteritis. * Colonoscopy on March 31, 2019 reportedly showing colitis and polyps * History of Campylobacter recently treated with Zithromax 500 mg daily x3 days * Recheck CT and stool cultures negative last week for Abductor and lactoferrin * Currently having little drainage out of NG tube and positive flatus * Pulmonary hypertension with sleep apnea requiring CPAP * Hypertension Plan * Admit to medical floor * Advance diet as tolerated - had some pain last night and restarted on clears, advancing now * Removed NG Tube 03/21/18 * IV Lopressor for blood pressure greater than 180/105 and or heart rate greater than 110 * Consult surgery - Dr. Franco * Metronidazole 500 mg IV every 8 hours -> discontinue * IV pain medications * BMP, magnesium in the morning * VTE prophylaxis with SCDs * CODE STATUS: Full code * Length of stay: Likely discharge tomorrow pending continued improvement
[2019-03-23 08:48] VITALS: BP 116/68
[2019-03-23] MEDS: Saccharomyces Boulardii (Probiotic) 250 MG Cap PO SCH (08:56)
[2019-03-23] MEDS: busPIRone 5 MG Tab PO SCH (08:58)
[2019-03-23] MEDS ORDERED: Aspirin 81 MG Tab.EC PO SCH (09:00)
[2019-03-23] MEDS ORDERED: Pantoprazole 40 MG Tab.CR PO SCH (09:00)
[2019-03-23] MEDS ORDERED: Oxybutynin 5 MG Tab.ER PO SCH (09:00)
[2019-03-23] MEDS ORDERED: DULoxetine 30 MG Cap PO SCH (11:30)
--- NOTE | 2019-03-23 11:31 | PCM.DCSUM1 ---
Discharge Summary - Hospital Course HPI Initial Comments: 69-year-old female with history of obstructive sleep apnea and pulmonary hypertension, right ventricular hypertrophy, on CPAP, anxiety, and colitis who has had off-and-on abdominal pain since November presented to the emergency room last night with worsening left lower quadrant pain, nausea, vomiting and cold sweats. Patient states that since November she has had left lower quadrant pain. She has had a colonoscopy which did show some polyps and colitis but nothing specific on diagnosis. Patient also had a positive Campylobacter and was treated with Zithromax last week from Wednesday to Wednesday. Patient had a repeat stool study which was negative for Campylobacter and lactoferrin. Patient has been seen by Dr. Sexton in surgery who did her colonoscopy and stool work-up. I spoke with Dr. Sexton who helped fill in the gaps of the history. Patient did have a CT scan on March 14, 2019 which was negative. In the emergency room patient had a CT of the abdomen which found focal bowel wall thickening within a loop with distal small bowel involving the ileum. This shows enhancing wall with surrounding inflammatory change and most likely represents a focal area of enteritis. This causes proximal small bowel obstruction. At that time patient had NG tube placed to low intermittent suction, she was given pain medication and Zofran for nausea, started on IV fluids and sent to the floor. Diagnosis: Stroke: No - Discharge Data Discharge Date: 03/23/19 (Admit date: 03/20/19) Discharge Disposition: Home, Self-Care 01 Condition: Good - Referral to Home Health Primary Care Physician: Karla Rabago MD - Discharge Diagnosis/Problem(s) (1) Anxiety SNOMED Code(s): 85492651 ICD Code: F41.9 - ANXIETY DISORDER, UNSPECIFIED Status: Chronic Priority : Low Current Visit: No (2) Small bowel obstruction SNOMED Code(s): 954900542 ICD Code: K56.609 - UNSP INTESTNL OBST, UNSP TO PARTIAL VERSUS COMPLETE OBST Status: Acute Priority: High Current Visit: Yes (3) Abdominal pain SNOMED Code(s): 30008468 ICD Code: R10.9 - UNSPECIFIED ABDOMINAL PAIN Status: Acute Priority: High Current Visit: Yes (4) HTN, Essential hypertension SNOMED Code(s): 96802049 ICD Code: I10 - ESSENTIAL (PRIMARY) HYPERTENSION Status: Chronic Priority : Low Current Visit: No (5) Hyperlipidemia SNOMED Code(s): 51407687 ICD Code: E78.5 - HYPERLIPIDEMIA, UNSPECIFIED Status: Chronic Priority: Low Current Visit: No (6) Inflammatory bowel disease SNOMED Code(s): 42012402 ICD Code: K63.89 - OTHER SPECIFIED DISEASES OF INTESTINE Status: Chronic Priority: Medium Current Visit: No (7) Nausea and vomiting in adult SNOMED Code(s): 40615789 ICD Code: R11.2 - NAUSEA WITH VOMITING, UNSPECIFIED Status: Resolved Priority: High Current Visit: Yes (8) Pulmonary hypertension SNOMED Code(s): 69955164 ICD Code: I27.20 - PULMONARY HYPERTENSION, UNSPECIFIED Status: Chronic Priority: Medium Current Visit: No (9) KIRILL on CPAP SNOMED Code(s): 17539464 ICD Code: G47.33 - OBSTRUCTIVE SLEEP APNEA (ADULT) (PEDIATRIC); Z99.89 - DEPENDENCE ON OTHER ENABLING MACHINES AND DEVICES Status: Chronic Priority: Medium Current Visit: No - Patient Summary/Data Consults: Consultations 03/20/19 17:00 Consult to Physician [CONS] Routine Labs Pending at D/C: None Recommended Follow-up Testing/Procedures: Follow-up with PCP within 5-7 days of discharge. Recommend follow-up with GI at next available appointment. Follow-up with Dr. Sexton, general surgery, as needed. Hospital Course: Catalina was admitted to the floor with a small bowel obstruction. There is also questionable enteritis involving the small bowel just beyond the dilated segment. NG tube was placed with low intermittent suction. Dr. Franco, general surgeon, was consulted. Patient does have a history of left-sided abdominal pain which been ongoing for the last 3 months. She has been worked up for this with Dr. Sexton, general surgeon at [facility], and does have a very significant history for abdominal surgeries. NG tube was clamped and patient was able to tolerate this. NG tube was then removed and diet was advanced slowly. Patient did have one episode of worsening pain and was placed back on clear liquids and then readvanced. Patient continued to have left- sided abdominal pain worse in the lower quadrant and in the upper quadrant, however this is been ongoing for some time. She will need to follow-up with GI in [place] regarding this pain. She was instructed to follow-up with Dr. Sexton locally should pain continue. She was ambulating without difficulty. She was receiving Flagyl on the floor and this was discontinued by Dr. Umaña prior to discharge. Patient was complaining of worsening anxiety and depression and was started on 30 mg p.o. daily duloxetine prior to discharge. She was advised to follow-up with her primary care regarding this as dosage may need to be changed in the future. She is also advised of warning signs to look for and side effects of this medication. All other home medications were continued. She was advised to follow-up with her primary care provider within 5 to 7 days of discharge. She was advised to return the emergency room or follow-up with her primary care provider should symptoms return or worsen. She was discharged home today. - Patient Instructions Diet: Usual Diet as Tolerated Activity: As Tolerated Notify Provider of: Fever, Increased Pain, Nausea and/or Vomiting Other/Special Instructions: Follow-up with primary care provider within 5-7 days of discharge, sooner if needed. Resume home medications as directed. You were started on Duloxetine as we discussed. Be sure to discuss this with Dr. Rabago as you will need follow-up and possible dosing changes in the future. Avoid alcohol with this medication. Be sure to let Dr. Rabago know if you experience any advers reactions to this medication. You are being referred to [facility] in [place]. Follow-up with Dr. Sexton at [facility] here in [place] as needed. Should symtpoms return or worsen, return to the Emergency Department or follow-up with primary care provider. - Discharge Plan *PRESCRIPTION DRUG MONITORING PROGRAM REVIEWED*: Not Applicable *COPY OF PRESCRIPTION DRUG MONITORING REPORT IN PATIENT DINO: Not Applicable Prescriptions/Med Rec: DULoxetine [Cymbalta] 30 mg PO DAILY #20 cap Home Medications: Home Meds Calcium Carb/Vitamin D3/Vit K1 [Viactiv Soft Chew] 1 tab PO BEDTIME 11/07/13 [ History] Calcium Polycarbophil [Fibercon] 1,250 mg PO DAILY 11/07/13 [History] Ezetimibe [Zetia] 10 mg PO BEDTIME 11/07/13 [History] Fluticasone Propionate [Flonase] 2 sprays NASBOTH DAILY 11/07/13 [History] Multivitamin [Daily Multiple Vitamin] 1 tab PO DAILY 11/07/13 [History] NIFEdipine [Procardia XL] 30 mg PO BEDTIME 11/07/13 [History] Omeprazole [priLOSEC OTC] 20 mg PO DAILY 11/07/13 [History] Oxybutynin Chloride [Ditropan Xl] 10 mg PO DAILY 11/07/13 [History] Simvastatin [Zocor] 20 mg PO BEDTIME 11/07/13 [History] atenoloL [Atenolol] 50 mg PO QAM 11/07/13 [History] busPIRone [Buspar] 10 mg PO BID 11/07/13 [History] Aspirin [Halfprin] 81 mg PO DAILY 12/08/14 [History] Estrogens, Conjugated [Premarin Vaginal Crm] 0.5 gm VAG ASDIRECTED 12/08/14 [ History] [place]-3/DHA/Epa/Fish Oil [Fish Oil Dr 500 mg Softgel] 1,000 mg PO DAILY [History] Acetaminophen [Tylenol] 1,000 mg PO Q4H PRN 06/14/17 [History] Vit A/Vit C/Vit E/Zinc/Copper [Preservision] 1 tab PO BID 06/14/17 [History] atenoloL [Atenolol] 25 mg PO QPM 06/14/17 [History] DULoxetine [Cymbalta] 30 mg PO DAILY #20 cap 03/23/19 [Rx] Oxygen Therapy Mode: Room Air Patient Handouts: Small Bowel Obstruction, [id number] Referrals: Sharon Aguilera MD [Physician] - Karla Rabago MD [Primary Care Provider] - 03/30/19 9:00 am (Please follow up with Dr. Rabago on March 30 at 9:00am) Sydnie Gregorio Om, MD [Ordering Only Provider] - - Discharge Summary/Plan Comment DC Time >30 min.: Yes (45 mins) - General Info Date of Service: 03/23/19 Subjective Update: In to see Catalina. Diet was advanced to regular and she reports some abdominal pain, but minimal, with this. She is concerned about going home today and has yet to have a good BM. No other patient concerns. Functional Status: Reports: Pain Controlled, Tolerating Diet, Ambulating, Urinating. Denies: New Symptoms - Review of Systems General: Reports: No Symptoms. Denies: Fever, Weakness, Fatigue, Malaise, Chills HEENT: Reports: No Symptoms. Denies: Headaches, Sore Throat Pulmonary: Reports: No Symptoms. Denies: Shortness of Breath, Cough, Sputum, Wheezing Cardiovascular: Reports: No Symptoms. Denies: Palpitations, Dyspnea on Exertion Gastrointestinal: Reports: Abdominal Pain (LLQ). Denies: Constipation, Diarrhea , Nausea, Vomiting Genitourinary: Reports: No Symptoms. Denies: Pain Musculoskeletal: Reports: Back Pain Skin: Reports: No Symptoms. Denies: Cyanosis Neurological: Reports: No Symptoms. Denies: Confusion, Difficulty Walking, Gait Disturbance Psychiatric: Reports: No Symptoms - Patient Data Vitals - Most Recent: Last Vital Signs Temp 97.7 F 03/23/19 08:44 Pulse 78 03/23/19 09:00 Resp 16 03/23/19 08:44 BP 116/68 03/23/19 09:00 Pulse Ox 96 03/23/19 08:44 Weight - Most Recent: 150 lb 4.8 oz I&O - Last 24 hours: Intake & Output 03/22/19 03/23/19 03/23/19 22:59 06:59 14:59 Intake Total 490 500 Output Total 1150 700 Balance -660 -200 Lab Results - Last 24 hrs: Laboratory Results - last 24 hr 03/23/19 Range/Units 06:35 Sodium 138 (136-145) mEq/L Potassium 3.6 (3.5-5.1) mEq/L Chloride 102 (98-107) mEq/L Carbon Dioxide 25 (21-32) mEq/L Anion Gap 14.6 (5-15) BUN 11 (7-18) mg/dL Creatinine 0.8 (0.55-1.02) mg/dL Est Cr Clr Drug Dosing 50.08 mL/min Estimated GFR (MDRD) > 60 (>60) mL/min BUN/Creatinine Ratio 13.8 L (14-18) Glucose 110 (80-115) mg/dL Calcium 9.2 (8.5-10.1) mg/dL Magnesium 1.8 (1.8-2.4) mg/dl Med Orders - Current: Current Medications Aspirin (Halfprin) 81 mg PO DAILY [facility] Last Admin: 03/23/19 08:59 Dose: 81 mg Atenolol (Tenormin) 25 mg PO QPM [facility] Last Admin: 03/22/19 17:32 Dose: 25 mg Atenolol (Tenormin) 50 mg PO QAM [facility] Last Admin: 03/23/19 09:00 Dose: 50 mg Buspirone HCl (Buspar) 10 mg PO BID [facility] Last Admin: 03/23/19 08:58 Dose: 10 mg Duloxetine HCl (Cymbalta) 30 mg PO DAILY [facility] Ezetimibe (Zetia) 10 mg PO BEDTIME [facility] Last Admin: 03/22/19 20:59 Dose: 10 mg Hydromorphone HCl (Dilaudid) 0.5 mg IVPUSH Q1H PRN PRN Reason: Pain Last Admin: 03/21/19 20:35 Dose: 0.5 mg Lorazepam (Ativan) 0.5 mg PO Q4H PRN PRN Reason: Anxiety Last Admin: 03/22/19 22:32 Dose: 0.5 mg Metoprolol Tartrate (Lopressor) 5 mg IVPUSH Q4H PRN PRN Reason: Hypertension Nifedipine (Procardia Xl) 30 mg PO BEDTIME [facility] Last Admin: 03/22/19 20:59 Dose: 30 mg Ondansetron HCl (Zofran) 4 mg IVPUSH Q6H PRN PRN Reason: Nausea/Vomiting Oxybutynin Chloride (Oxybutynin Er) 10 mg PO DAILY [facility] Last Admin: 03/23/19 08:57 Dose: 10 mg Pantoprazole Sodium (Protonix) 40 mg PO DAILY [facility] Last Admin: 03/23/19 08:59 Dose: 40 mg Phenol/Menthol (Chloraseptic Throat [place]) 1 ml MUCMEM Q2H PRN PRN Reason: Sore Throat Last Admin: 03/20/19 23:55 Dose: 1 spray Saccharomyces Boulardii (Florastor) 500 mg PO DAILY [facility] Last Admin: 03/23/19 08:56 Dose: 500 mg Sodium Chloride (Saline Flush) 10 ml FLUSH ONETIME PRN PRN Reason: KEEP VEIN OPEN Last Admin: 03/19/19 22:58 Dose: 10 ml Discontinued Medications Diatrizoate Meglum/Diatrizoate Sod (Gastrografin 37%) 60 ml PO ONETIME ONE Stop: 03/19/19 21:15 Last Admin: 03/19/19 22:58 Dose: 60 ml Hydromorphone HCl (Dilaudid) 0.5 mg IVPUSH ONETIME ONE Stop: 03/19/19 21:01 Last Admin: 03/19/19 21:16 Dose: 0.5 mg Sodium Chloride (Normal Saline) 1,000 mls @ 150 mls/hr IV ASDIRECTED [facility] Last Admin: 03/19/19 21:14 Dose: 150 mls/hr Sodium Chloride (Normal Saline) 1,000 mls @ 150 mls/hr IV ASDIRECTED [facility] Lactated Ringer's (Ringers, Lactated) 1,000 mls @ 100 mls/hr IV ASDIRECTED [facility] Last Admin: 03/21/19 02:13 Dose: 100 mls/hr Metronidazole 500 mg/ Premix 100 mls @ 100 mls/hr IV Q8H [facility] Last Admin: 03/22/19 16:50 Dose: Not Given Ibuprofen (Motrin) 600 mg PO ONETIME ONE Stop: 03/23/19 08:09 Last Admin: 03/23/19 08:55 Dose: 600 mg Iopamidol (Isovue-300 (61%)) 100 ml IVPUSH ONETIME ONE Stop: 03/19/19 21:15 Last Admin: 03/19/19 22:58 Dose: 100 ml Lorazepam (Ativan) 0.5 mg IVPUSH ONETIME STA Stop: 03/19/19 21:01 Last Admin: 03/19/19 21:18 Dose: 0.5 mg Lorazepam (Ativan) 0.5 mg IVPUSH Q3H PRN PRN Reason: Anxiety Last Admin: 03/21/19 22:27 Dose: 0.5 mg Ondansetron HCl (Zofran) 4 mg IVPUSH ONETIME ONE Stop: 03/19/19 21:00 Last Admin: 03/19/19 21:13 Dose: 4 mg Ondansetron HCl (Zofran) 4 mg IVPUSH ONETIME ONE Stop: 03/19/19 21:01 Last Admin: 03/20/19 02:10 Dose: Not Given Pantoprazole Sodium (Protonix Iv) 40 mg IVPUSH DAILY [facility] Last Admin: 03/22/19 08:43 Dose: 40 mg - Exam Quality Assessment: Reports: DVT Prophylaxis General: Reports: Alert, Oriented, Cooperative, No Acute Distress HEENT: Reports: Pupils Equal, Pupils Reactive, Mucous Membr. Moist/[place] Neck: Reports: Supple, Trachea Midline Lungs: Reports: Clear to Auscultation, Normal Respiratory Effort Cardiovascular: Reports: Regular Rate, Regular Rhythm GI/Abdominal Exam: Normal Bowel Sounds, Soft, Tender (LLQ>LUQ) (Female) Exam: Deferred Rectal (Female) Exam: Deferred Back Exam: Reports: Normal Inspection, Full Range of Motion Extremities: Normal Inspection, Normal Range of Motion, Non-Tender, No Pedal Edema, Normal Capillary Refill Skin: Reports: Warm, Dry, Intact Neurological: Reports: No New Focal Deficit Psy/Mental Status: Reports: Alert, Normal Affect, Normal Mood
== END 2019-03-23 14:30 | disposition home or self-care (01) | DRG 392 ==
LOC: JD.ED 20:24 → JD.MS 03-20 00:55
PROVIDERS: ADMIT Family Medicine; ATTEND Family Medicine
PROC: 0D9670Z Drainage of Stomach with Drainage Device, Via Natural or Artificial Opening (ICD-10-PCS; principal; 2019-03-20)
DX: K52.9 Noninfective gastroenteritis and colitis, unspecified (principal); K56.609 Unspecified intestinal obstruction, unspecified as to partial versus complete obstruction; K63.5 Polyp of colon; F41.9 Anxiety disorder, unspecified; G47.33 Obstructive sleep apnea (adult) (pediatric); I27.20 Pulmonary hypertension, unspecified; K57.90 Diverticulosis of intestine, part unspecified, without perforation or abscess without bleeding; I10 Essential (primary) hypertension; E78.5 Hyperlipidemia, unspecified; K63.89 Other specified diseases of intestine; F32.9 Major depressive disorder, single episode, unspecified; Z98.42 Cataract extraction status, left eye; Z98.41 Cataract extraction status, right eye; E78.00 Pure hypercholesterolemia, unspecified; K21.9 Gastro-esophageal reflux disease without esophagitis; K44.9 Diaphragmatic hernia without obstruction or gangrene; Z90.711 Acquired absence of uterus with remaining cervical stump; G89.29 Other chronic pain; M54.9 Dorsalgia, unspecified; Z90.710 Acquired absence of both cervix and uterus; Z98.51 Tubal ligation status; Z99.81 Dependence on supplemental oxygen; Z79.899 Other long term (current) drug therapy; Z88.5 Allergy status to narcotic agent; Z88.6 Allergy status to analgesic agent; Z91.012 Allergy to eggs; Z91.018 Allergy to other foods; Z79.82 Long term (current) use of aspirin; Z87.442 Personal history of urinary calculi; Z85.820 Personal history of malignant melanoma of skin; Z98.49 Cataract extraction status, unspecified eye; Z90.49 Acquired absence of other specified parts of digestive tract; Z98.890 Other specified postprocedural states
CPT/HCPCS: 36415; 43752; 74177; 80053; 85007; 85027; 96361 ×2; 96374; 96375; 99285; J1170; J2060; J2405; J7030; Q9963; Q9967; 80048; 82306; 82607; 83540; 83735; 84466; 85025; 86140; 94761; 99222; 99231; 99239; A9270-GY; C9113; J3490; J7120

== ENCOUNTER 2022-07-02 09:49 | Emergency (ER) | payer MEDICARE, BC ==
[2022-07-02] MEDS ORDERED: Adenosine 6 MG/2 ML SDV ONE ×3 (09:58→10:04)
[2022-07-02] MEDS ORDERED: Adenosine 12 MG/4 ML SDV ONE (10:05)
[2022-07-02] MEDS ORDERED: Sodium Chloride 0.9% 1,000 ML IV SCH (10:15)
[2022-07-02] MEDS ORDERED: Diltiazem 125 MG in Sodium Chloride 0.9% 100 ML IV SCH (10:15)
[2022-07-02] MEDS ORDERED: Adenosine 6 MG/2 ML SDV IVPUSH ONE ×2 (10:31)
[2022-07-02] MEDS ORDERED: Labetalol 100 MG/20 ML MDV IVPUSH ONE (11:30)
[2022-07-02 11:36] LABS: ESTIMATED GFR 53 mL/min (>60)
[2022-07-02] MEDS ORDERED: Potassium Chloride 10 MEQ in Premix Bag 1 BAG IV ONE (11:53)
[2022-07-02] MEDS ORDERED: Potassium Chloride 20 MEQ Tab.ER PO ONE (11:54)
[2022-07-02 12:16] VITALS: BP 82/67; PULSE 118
== END 2022-07-02 13:03 ==
LOC: JD.ED 09:49
DX: R00.0 Tachycardia, unspecified (principal); R06.02 Shortness of breath; E78.00 Pure hypercholesterolemia, unspecified; I10 Essential (primary) hypertension; K21.9 Gastro-esophageal reflux disease without esophagitis; Z88.6 Allergy status to analgesic agent; Z88.5 Allergy status to narcotic agent; Z91.012 Allergy to eggs; Z91.018 Allergy to other foods; Z79.82 Long term (current) use of aspirin; Z79.899 Other long term (current) drug therapy
CPT/HCPCS: 36415; 71045; 80053; 84443; 84484; 85025; 93005; 96365; 96366; 96368; 96375; 99285; A9270; J0153; J3480; J3490; J7030; 93010

== ENCOUNTER 2022-08-16 20:12 | Emergency (ER) | payer MEDICARE, BC ==
[2022-08-16] MEDS ORDERED: Adenosine 6 MG/2 ML SDV ONE (20:23)
[2022-08-16] MEDS ORDERED: Adenosine 12 MG/4 ML SDV ONE (20:23)
[2022-08-16] MEDS ORDERED: Adenosine 6 MG/2 ML SDV IVPUSH ONE ×2 (20:25→20:35)
[2022-08-16] MEDS ORDERED: Diltiazem 125 MG/25 ML SDV ONE (20:37)
[2022-08-16] MEDS ORDERED: Diltiazem 25 MG/5 ML SDV IVPUSH ONE (20:40)
[2022-08-16] MEDS ORDERED: Diltiazem 125 MG in Sodium Chloride 0.9% 100 ML IV SCH (20:45)
[2022-08-16] MEDS ORDERED: Sodium Chloride 0.9% 1,000 ML IV SCH (21:00)
[2022-08-16 21:06] LABS: BASOPHILS ABSOLUTE AUTO 0.01 K/mm3 (0.01-0.08); BASOPHILS PERCENT AUTO 0.1 % (0.1-1.2); EOSINOPHILS ABSOLUTE AUTO 0.29 K/mm3 (0.04-0.36); EOSINOPHILS PERCENT AUTO 4.1 (0.7-5.8); HEMATOCRIT 48.6 % (34.1-44.9); HEMOGLOBIN 16.2 gm/dl (11.2-15.7); IMMATURE GRAN ABSOLUTE AUTO 0.01 K/mm3 (0.00-0.10); IMMATURE GRAN PERCENT AUTO 0.1 % (<=1.0); LYMPHOCYTES ABSOLUTE AUTO 2.06 K/mm3 (1.18-3.74); LYMPHOCYTES PERCENT AUTO 29.5 % (19.3-51.7); MEAN CORPUSCULAR HEMOGLOBIN 30.3 pg (25.6-32.2); MEAN CORPUSCULAR HGB CONC 33.3 g/dl (32.2-35.5); MEAN PLATELET VOLUME 9.5 fl (9.4-12.3); MONOCYTES ABSOLUTE AUTO 0.52 K/mm3 (0.24-0.36); MONOCYTES PERCENT AUTO 7.4 % (4.7-12.5); NEUTROPHILS PERCENT AUTO 58.8 % (34.0-71.1); PLATELET COUNT,PLT 225 K/mm3 (182-369); RED BLOOD CELL COUNT 5.34 M/mm3 (3.98-5.22); WHITE BLOOD CELL COUNT,WBC 6.99 K/mm3 (3.98-10.04)
[2022-08-16 21:35] LABS: A/G RATIO 1.2 (1-2); ALBUMIN 4.2 g/dl (3.4-5.0); ANION GAP 18.6 (5-15); BILIRUBIN TOTAL 0.5 mg/dL (0.2-1.0); BUN/CREATININE RATIO 13.8 (14-18); CALCIUM 9.8 mg/dL (8.5-10.1); CREATININE 1.6 mg/dL (0.55-1.02); EST CRCL DRUG DOSING (CG) 23.98 mL/min; MAGNESIUM 1.9 mg/dL (1.8-2.4); POTASSIUM,K 3.6 mEq/L (3.5-5.1); PROTEIN TOTAL,TP 7.6 g/dl (6.4-8.2)
[2022-08-17 05:39] VITALS: PULSE 63
[2022-08-17 07:06] VITALS: BP 123/72
== END 2022-08-17 07:03 | disposition home or self-care (01) ==
LOC: JD.ED 20:12
DX: I48.92 Unspecified atrial flutter (principal); N28.9 Disorder of kidney and ureter, unspecified; R73.9 Hyperglycemia, unspecified; I10 Essential (primary) hypertension; E78.00 Pure hypercholesterolemia, unspecified; K21.9 Gastro-esophageal reflux disease without esophagitis; Z88.5 Allergy status to narcotic agent; Z88.8 Allergy status to other drugs, medicaments and biological substances; Z91.012 Allergy to eggs; Z91.011 Allergy to milk products; Z91.018 Allergy to other foods; Z79.82 Long term (current) use of aspirin; Z79.899 Other long term (current) drug therapy; Z20.822 Contact with and (suspected) exposure to COVID-19
CPT/HCPCS: 36415; 80053; 83735; 83880; 84484; 85025; 93005; 96361; 96365; 96366; 96367; 96375; 96376; 99285; J0153; J0282; J3490; J7030; U0002; 93010; 99284

== ENCOUNTER 2022-11-23 16:36 | Emergency (ER) | payer MEDICARE, BC ==
[2022-11-23 17:34] LABS: BASOPHILS PERCENT AUTO 0.3 % (0.0-1.0); EOSINOPHILS ABSOLUTE AUTO 0.3 K/mm3 (0.0-0.4); HEMATOCRIT 49.2 % (37.0-47.0); HEMOGLOBIN 16.5 gm/dl (12.0-16.0); IMMATURE GRAN ABSOLUTE AUTO 0.03 K/mm3 (0.00-0.05); IMMATURE GRAN PERCENT AUTO 0.3 % (0.0-0.4); LYMPHOCYTES ABSOLUTE AUTO 1.6 K/mm3 (1.0-4.8); LYMPHOCYTES PERCENT AUTO 18.5 % (24.0-44.0); MEAN CORPUSCULAR HGB CONC 33.5 g/dl (32.0-36.0); MEAN CORPUSCULAR VOLUME 89.5 fl (83.0-99.0); MEAN PLATELET VOLUME 8.8 fl (9.4-12.3); MONOCYTES ABSOLUTE AUTO 0.7 K/mm3 (0.0-0.8); MONOCYTES PERCENT AUTO 7.9 % (0.0-8.0); PLATELET COUNT,PLT 213 K/mm3 (150-400); WHITE BLOOD CELL COUNT,WBC 8.63 K/mm3 (3.9-11.3)
[2022-11-23] MEDS ORDERED: Sodium Chloride 0.9% 500 ML IV SCH (17:45)
[2022-11-23 18:04] LABS: A/G RATIO 1.1 (1-2); ALBUMIN 4.1 g/dl (3.4-5.0); ANION GAP 17.3 (5-15); BILIRUBIN TOTAL 0.5 mg/dL (0.2-1.0); BUN/CREATININE RATIO 17.1 (14-18); CALCIUM 9.7 mg/dL (8.5-10.1); CREATININE 1.4 mg/dL (0.55-1.02); EST CRCL DRUG DOSING (CG) 27.41 mL/min; MAGNESIUM 2.3 mg/dL (1.8-2.4); POTASSIUM,K 4.3 mEq/L (3.5-5.1); PROTEIN TOTAL,TP 7.9 g/dl (6.4-8.2)
[2022-11-23 19:30] VITALS: BP 122/79; PULSE 84
== END 2022-11-23 19:10 | disposition home or self-care (01) ==
LOC: JD.ED 16:36
DX: R00.0 Tachycardia, unspecified (principal); E86.0 Dehydration; E78.00 Pure hypercholesterolemia, unspecified; I48.91 Unspecified atrial fibrillation; I10 Essential (primary) hypertension; Z88.5 Allergy status to narcotic agent; Z91.018 Allergy to other foods
CPT/HCPCS: 36415; 71045; 80053; 83735; 84484; 85025; 93005; 96360; 99285; J7030; 93010; 99282

== ENCOUNTER 2024-01-02 17:53 | Emergency (ER) | payer MEDICARE, BC ==
[2024-01-02] MEDS ORDERED: Sodium Chloride 0.9% 10 ML Syringe FLUSH PRN (18:23)
[2024-01-02] MEDS ORDERED: Diltiazem 125 MG in Sodium Chloride 0.9% 100 ML IV SCH (18:30)
[2024-01-02] MEDS: Sodium Chloride 0.9% 1,000 ML IV SCH (18:30)
[2024-01-02 18:31] LABS: BASOPHILS PERCENT AUTO 0.2 % (0.0-1.0); EOSINOPHILS ABSOLUTE AUTO 0.8 K/mm3 (0.0-0.4); EOSINOPHILS PERCENT AUTO 7.3 % (0.0-6.0); HEMATOCRIT 41.3 % (37.0-47.0); HEMOGLOBIN 13.4 gm/dl (12.0-16.0); IMMATURE GRAN ABSOLUTE AUTO 0.02 K/mm3 (0.00-0.05); IMMATURE GRAN PERCENT AUTO 0.2 % (0.0-0.4); LYMPHOCYTES ABSOLUTE AUTO 1.6 K/mm3 (1.0-4.8); LYMPHOCYTES PERCENT AUTO 15.6 % (24.0-44.0); MEAN CORPUSCULAR HEMOGLOBIN 27.8 pg (28.0-32.0); MEAN CORPUSCULAR HGB CONC 32.4 g/dl (32.0-36.0); MEAN CORPUSCULAR VOLUME 85.7 fl (83.0-99.0); NEUTROPHILS ABSOLUTE AUTO 7.1 K/mm3 (1.8-7.7); NEUTROPHILS PERCENT AUTO 67.7 % (41.0-71.0); PLATELET COUNT,PLT 250 K/mm3 (150-400); RED BLOOD CELL COUNT 4.82 M/mm3 (4.10-5.30); WHITE BLOOD CELL COUNT,WBC 10.52 K/mm3 (3.9-11.3)
[2024-01-02 18:38] LABS: INR 1.11; PROTHROMBIN TIME 11.7 SECONDS (9.7-12.0)
[2024-01-02 18:39] LABS: PTT,PARTIAL THROMBOPLSTIN TIME 27.5 SECONDS (21.7-31.4)
[2024-01-02 18:51] LABS: A/G RATIO 0.7 (1-2); ALBUMIN 3.4 g/dl (3.4-5.0); ANION GAP 14.9 (5-15); BILIRUBIN TOTAL 0.6 mg/dL (0.2-1.0); BUN/CREATININE RATIO 13.3 (14-18); C-REACTIVE PROTEIN 6.66 mg/dL (<0.30); CREATININE 1.2 mg/dL (0.55-1.02); EST CRCL DRUG DOSING (CG) 31.51 mL/min; POTASSIUM,K 3.9 mEq/L (3.5-5.1); PROTEIN TOTAL,TP 8.3 g/dl (6.4-8.2)
[2024-01-02] MEDS: Diltiazem 25 MG/5 ML SDV IVPUSH ONE ×2 (18:56→19:59)
[2024-01-02 19:50] LABS: CORONAVIRUS COVID-19 NAA NEGATIVE (NEGATIVE); INFLUENZA A NAA NEGATIVE (NEGATIVE); RESPIRATORY SYNCYTIAL VIR NAA NEGATIVE (NEGATIVE)
[2024-01-02] MEDS: Metoprolol Tartrate 5 MG/5 ML SDV IVPUSH ONE (20:59)
[2024-01-02 22:07] LABS: APPEARANCE,URINE CLEAR (Clear); BILIRUBIN,URINE NEGATIVE (Negative); COLOR,URINE YELLOW (Yellow); GLUCOSE,URINE 2+ (Negative); KETONES,URINE TRACE (Negative); LEUKOCYTE ESTERASE,URINE NEGATIVE (Negative); NITRITE,URINE NEGATIVE (Negative); OCCULT BLOOD,URINE NEGATIVE (Negative); PROTEIN,URINE NEGATIVE (Negative); UROBILINOGEN,URINE 0.2 (0.2-1.0)
[2024-01-02 22:16] LABS: BACTERIA,URINE FEW /hpf (FEW); MUCUS,URINE NOT SEEN /hpf (FEW); RBC,URINE 0-5 /hpf (0-5); SQUAMOUS EPITHELIAL CELLS,UR 0-5 /hpf (0-5); WBC,URINE 0-5 /hpf (0-5)
[2024-01-02] MEDS: Acetaminophen 325 MG Tab PO ONE (23:03)
[2024-01-02 23:28] VITALS: BP 128/77; PULSE 99
== END 2024-01-02 23:29 | disposition home or self-care (01) ==
LOC: JD.ED 17:53
DX: R07.89 Other chest pain (principal); B34.9 Viral infection, unspecified; R00.0 Tachycardia, unspecified; I10 Essential (primary) hypertension; I48.91 Unspecified atrial fibrillation; E78.00 Pure hypercholesterolemia, unspecified; K21.9 Gastro-esophageal reflux disease without esophagitis; Z90.710 Acquired absence of both cervix and uterus; Z79.899 Other long term (current) drug therapy; Z79.82 Long term (current) use of aspirin; Z88.5 Allergy status to narcotic agent
CPT/HCPCS: 0241U; 36415; 71045; 80053; 81001; 83605; 83735; 83880; 84484; 85025; 85610; 85730; 86140; 87040; 93005; 96361; 96374; 96375; 96376; 99285; A9270; J3490; J7030; 93010